=== PATIENT | male | born 1965 | race African-American/Black ===

== ENCOUNTER 2017-10-04 03:41 | Emergency (ER) | payer OTHER ==
[2017-10-04] MEDS: MORPHINE SULFATE 2 MG/ML DISP.SYRIN. IM (05:15)
== END 2017-10-04 06:20 | disposition home or self-care (01) ==
LOC: ER 03:41
DX: M54.5 Low back pain (principal); M79.604 Pain in right leg; M79.605 Pain in left leg; R10.9 Unspecified abdominal pain; G89.29 Other chronic pain; I12.0 Hypertensive chronic kidney disease with stage 5 chronic kidney disease or end stage renal disease; E11.22 Type 2 diabetes mellitus with diabetic chronic kidney disease; N18.6 End stage renal disease; M10.9 Gout, unspecified; N40.0 Benign prostatic hyperplasia without lower urinary tract symptoms; Z90.49 Acquired absence of other specified parts of digestive tract; Z99.2 Dependence on renal dialysis
CPT/HCPCS: 96372; 99283; J2270

== ENCOUNTER 2017-10-27 11:56 | Emergency (ER) | payer OTHER ==
[2017-10-27 12:47] LABS: BACTERIA,URINE 0 /HPF (0-FEW); BILIRUBIN,URINE NEGATIVE (NEG); CLARITY,URINE CLEAR; COLOR,URINE YELLOW; GLUCOSE,URINE NEGATIVE (NEG); NITRITE,URINE NEGATIVE (NEG); PH,URINE 7.5; PROTEIN,URINE 100 mg/dL (NEG-TRACE); RBC,URINE OCC /HPF (0-2); SQUAMOUS EPITHELIAL CELL,UR MANY /LPF; UROBILINOGEN,URINE 0.2 mg/dL (0.2 mg/dL)
[2017-10-27 12:50] LABS: ADD MAN DIFF? NO
[2017-10-27 12:52] LABS: BASO % 1 % (0-3); EOS # 0.4 x10^3/uL (0.0-0.7); EOS % 8 % (0-3); HEMATOCRIT 27.6 % (39.0-53.0); LYMPH # 1.7 x10^3/uL (1.0-4.8); LYMPH % 31 % (24-48); MEAN CORPUSCULAR HEMOGLOBIN 24 pg (25-35); MEAN CORPUSCULAR HGB CONC 33 g/dL (31-37); MEAN CORPUSCULAR VOLUME 75 fL (79-100); MONO # 0.6 x10^3/uL (0.0-1.1); MONO % 11 % (0-9); NEUT # 2.8 x10^3uL (1.8-7.7); NEUT % 50 % (31-73); PLATELET COUNT 72 x10^3/uL (140-400); RED BLOOD COUNT 3.69 x10^6/uL (4.30-5.70); RED CELL DISTRIBUTION WIDTH 20.4 % (11.5-14.5); WHITE BLOOD COUNT 5.5 x10^3/uL (4.0-11.0)
[2017-10-27 13:02] LABS: ANION GAP 4 (6-14); BLOOD UREA NITROGEN 49 mg/dL (8-26); BUN/CREATININE RATIO 5 (6-20); CALCIUM 9.1 mg/dL (8.5-10.1); CARBON DIOXIDE 30 mmol/L (21-32); CHLORIDE 101 mmol/L (98-107); CREATININE 10.1 mg/dL (0.7-1.3); GFR 6.5; GLUCOSE 81 mg/dL (70-99); POTASSIUM 3.8 mmol/L (3.5-5.1); SODIUM 135 mmol/L (136-145)
[2017-10-27] MEDS: ONDANSETRON PF 4 MG/2 ML VIAL. IV (13:04)
[2017-10-27] MEDS: fentaNYL PF VIAL 100 MCG/2 ML VIAL IV (13:05)
[2017-10-27 13:10] LABS: ALBUMIN 3.1 g/dL (3.4-5.0); ALBUMIN/GLOBULIN RATIO 0.8 (1.0-1.7); ALK PHOS 67 U/L (46-116); ALT (SGPT) 20 U/L (16-63); AST (SGOT) 22 U/L (15-37); LIPASE 334 U/L (73-393); TOTAL BILIRUBIN 0.4 mg/dL (0.2-1.0); TOTAL PROTEIN 7.1 g/dL (6.4-8.2)
[2017-10-27 13:45] LABS: BARBITURATES NEG (NEG); BENZODIAZEPINES NEG (NEG); CANNABINOIDS NEG (NEG); COCAINE NEG (NEG); METHADONE NEG (NEG); OPIATES POS (NEG); PHENCYCLIDINE POS (NEG)
[2017-10-27 13:53] LABS: AMPHETAMINE/METHAMPHETAMINE NEG (NEG); ETHANOL, URINE NEG (NEG)
[2017-10-27 14:48] LABS: ANISOCYTOSIS MOD; HYPOCHROMIA SLIGHT; MICROCYTOSIS MOD; PLT ESTIMATE DECREASED (ADEQUATE); POLYCHROMASIA SLIGHT; SCHISTOCYTES OCC
== END 2017-10-27 15:30 | disposition home or self-care (01) ==
LOC: ER 11:56
DX: E11.22 Type 2 diabetes mellitus with diabetic chronic kidney disease (principal); I12.0 Hypertensive chronic kidney disease with stage 5 chronic kidney disease or end stage renal disease; N18.6 End stage renal disease; Z99.2 Dependence on renal dialysis; E11.40 Type 2 diabetes mellitus with diabetic neuropathy, unspecified; Z90.49 Acquired absence of other specified parts of digestive tract
CPT/HCPCS: 36415; 74176; 80053; 80307; 81001; 83690; 85025; 87086; 93005; 96374; 96375; 99285-25; J2405; J3010

== ENCOUNTER 2018-07-25 12:59 | Emergency (ER) | payer OTHER ==
[~2018-07-25] VITALS: Ht 177.8 cm; Wt 112.9 kg
[~2018-07-25 12:59] MED LIST: AMLO5TAB4 PO; BUPR1PAT8 TP; CALC667T4; DIAZ2TAB PO; ESCITALOPRAM OX10 MG PO; METO10SO PO; MIDO5TAB PO; ONDA4TAB7 PO; OXYC1TAB15 PO; PROM118S5 PO; TIMO1DRO2 OU
[2018-07-25] MEDS ORDERED: VANCOMYCIN PER PHARMACY MC ONE (13:30)
[2018-07-25] MEDS ORDERED: MORPHINE SULFATE 4 MG/ML VIAL. IV/SQ PRN (13:30)
[2018-07-25] MEDS ORDERED: PIPERACILLIN/TAZOBACTAM 4.5 GM in IV NORMAL SALINE 100ML 100 ML IV ONE (13:30)
[2018-07-25] MEDS ORDERED: VANCOMYCIN 2 GM in IV NORMAL SALINE 500ML BAG 500 ML IV ONE (14:00)
--- NOTE | 2018-07-25 14:07 | EKG ---
[facility] [address] [place] [address] Test Date: 2018-07-25 Test Time: 13:47:52 Pat Name: BEHZAD NGUYEN Department: Room: Gender: M Slide Developer: : 1965 Requested By: PETRA CRAWFORD Order Number: [id number] Reading MD: Ari Mccollum MD Measurements Intervals [place] Rate: 90 P: 33 [place]: 198 QRS: -18 QRSD: 84 T: -8 QT: 354 QTc: 437 Interpretive Statements SINUS RHYTHM PRIOR SEPTAL INFARCT NON-SPECIFIC ST/T CHANGES Electronically Signed On 07-25-2018 15:12:44 CDT by Ari Mccollum MD
[2018-07-25 14:20] LABS: PROTHROMBIN TIME PATIENT 14.1 SEC (11.7-14.0)
[2018-07-25 14:23] LABS: BASO % 1 % (0-3); EOS # 0.2 x10^3/uL (0.0-0.7); EOS % 3 % (0-3); HEMATOCRIT 29.4 % (39.0-53.0); HEMOGLOBIN 9.6 g/dL (13.0-17.5); LYMPH # 1.5 x10^3/uL (1.0-4.8); LYMPH % 18 % (24-48); MEAN CORPUSCULAR HEMOGLOBIN 24 pg (25-35); MEAN CORPUSCULAR HGB CONC 33 g/dL (31-37); MEAN CORPUSCULAR VOLUME 74 fL (79-100); MONO # 0.4 x10^3/uL (0.0-1.1); MONO % 5 % (0-9); NEUT # 6.2 x10^3uL (1.8-7.7); NEUT % 75 % (31-73); PLATELET COUNT 62 x10^3/uL (140-400); RED BLOOD COUNT 3.99 x10^6/uL (4.30-5.70); RED CELL DISTRIBUTION WIDTH 19.4 % (11.5-14.5); WHITE BLOOD COUNT 8.3 x10^3/uL (4.0-11.0)
[2018-07-25 14:25] LABS: CALCIUM 8.8 mg/dL (8.5-10.1); CREATININE 13.1 mg/dL (0.7-1.3); GFR 4.8; POTASSIUM 4.6 mmol/L (3.5-5.1)
[2018-07-25 14:31] LABS: ALBUMIN 3.6 g/dL (3.4-5.0); ALBUMIN/GLOBULIN RATIO 0.8 (1.0-1.7); MAGNESIUM 2.3 mg/dL (1.8-2.4); TOTAL BILIRUBIN 0.4 mg/dL (0.2-1.0)
--- NOTE | 2018-07-25 14:47 | RAD ---
CT ABDOMEN PELVIS WO CONTRAST Indication: ABD PAIN Exposure: One or more of the following individualized dose reduction techniques were utilized for this examination: 1. Automated exposure control 2. Adjustment of the mA and/or kV according to patient size 3. Use of iterative reconstruction technique. Comparison: None are available. Technique: No intravenous contrast given. No oral contrast per request. Findings: Evaluation of solid viscera, bowel and vasculature is compromised by the noncontrast technique. Comparison with October 27, 2017. Lung bases are clear. Liver is unremarkable. Spleen is mildly enlarged measuring 13.5 cm, similar prior study. Pancreas is unremarkable. No evidence of adrenal mass. Kidneys appear small bilaterally . Several small hypodense lesions of both kidneys, too small to characterize, may represent cysts. No hydronephrosis. Gallbladder is surgically absent. Aorta is nonaneurysmal. Mild atherosclerotic calcification. No significant lymph node enlargement. No evidence of bowel obstruction. No evidence of acute colitis. No evidence of acute appendicitis. The prostate gland is enlarged and irregular, similar to the previous study. This indents the urinary bladder. There is distention of urinary bladder which measures about 16 cm cephalocaudal. No evidence of significant ascites. No evidence of pneumoperitoneum. Several small subcutaneous nodules in the anterior abdomen were not seen previously, largest is on the left and measures 18 mm. No significant inflammatory stranding in the regions. Degenerative spondylosis. There is endplate irregularity of the lower lumbar and sacral levels, similar to prior study, likely degenerative in nature. Mild degenerative changes at the skeletal pelvis. IMPRESSION: 1. Prostate is enlarged and irregular, appears similar to prior study. Urinary bladder distention could indicate outlet obstruction. As stated previously, prostate or urinary bladder mass is difficult to exclude. 2. Mild splenic enlargement is unchanged. 3. Development of multiple small nonspecific subcutaneous nodules in the anterior abdominal wall fat. Significance uncertain. Largest measures 18 mm. 4. Small renal hypodensities are too small to characterize, may represent cysts. Lesions on the right are roughly similar as previous exam. Electronically signed by: Jose Sloan MD (07/25/2018 2:44 PM) [facility]
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
[2018-07-25 18:11] VITALS: BP 117/59
== END 2018-07-25 18:16 | disposition home or self-care (01) ==
LOC: ER 12:59
DX: I12.0 Hypertensive chronic kidney disease with stage 5 chronic kidney disease or end stage renal disease (principal); E11.22 Type 2 diabetes mellitus with diabetic chronic kidney disease; N18.6 End stage renal disease; R10.84 Generalized abdominal pain; R11.2 Nausea with vomiting, unspecified; M19.90 Unspecified osteoarthritis, unspecified site; G89.29 Other chronic pain; E11.40 Type 2 diabetes mellitus with diabetic neuropathy, unspecified; Z99.2 Dependence on renal dialysis; Z90.49 Acquired absence of other specified parts of digestive tract; Z87.891 Personal history of nicotine dependence
CPT/HCPCS: 36415; 74176; 80053; 82553; 83605; 83690; 83735; 83880; 84145; 84484; 85025; 85610; 85730; 87040; 93005; 96365; 96366; 96367; 96375; 99284; J2270; J2543; J3370; J7040

== ENCOUNTER 2018-09-01 06:51 | Inpatient (IN) | payer OTHER ==
[~2018-09-01] VITALS: Ht 177.8 cm; Wt 114.9 kg
[2018-09-01] MEDS ORDERED: ACETAMINOPHEN 500 MG TABLET PO ONE (07:15)
[2018-09-01] MEDS ORDERED: IV NORMAL SALINE 1000ML BAG 1,000 ML IV ONE (07:15)
[2018-09-01 07:29] LABS: BILIRUBIN,URINE NEGATIVE (NEG); CLARITY,URINE TURBID; NITRITE,URINE NEGATIVE (NEG); PH,URINE 7.5; PROTEIN,URINE 100 mg/dL (NEG-TRACE); UROBILINOGEN,URINE 0.2 mg/dL (0.2 mg/dL)
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
[2018-09-01] MEDS ORDERED: cefTRIAXone IV Push 1 GM VIAL. IVP ONE (07:30)
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
[2018-09-01 07:42] LABS: BASO # 0.1 x10^3/uL (0.0-0.2); BASO % 1 % (0-3); EOS # 0.3 x10^3/uL (0.0-0.7); EOS % 3 % (0-3); HEMATOCRIT 24.2 % (39.0-53.0); HEMOGLOBIN 7.7 g/dL (13.0-17.5); LYMPH # 0.8 x10^3/uL (1.0-4.8); LYMPH % 11 % (24-48); MEAN CORPUSCULAR HEMOGLOBIN 24 pg (25-35); MEAN CORPUSCULAR HGB CONC 32 g/dL (31-37); MEAN CORPUSCULAR VOLUME 74 fL (79-100); MONO # 0.9 x10^3/uL (0.0-1.1); MONO % 12 % (0-9); NEUT # 5.8 x10^3uL (1.8-7.7); NEUT % 74 % (31-73); PLATELET COUNT 85 x10^3/uL (140-400); RED BLOOD COUNT 3.29 x10^6/uL (4.30-5.70); RED CELL DISTRIBUTION WIDTH 18.4 % (11.5-14.5); WHITE BLOOD COUNT 7.8 x10^3/uL (4.0-11.0)
[2018-09-01 07:45] LABS: BACTERIA,URINE 0 /HPF (0-FEW); COLOR,URINE STRAW; RBC,URINE 0 /HPF (0-2); SQUAMOUS EPITHELIAL CELL,UR FEW /LPF; WBC,URINE TNTC /HPF (0-4)
[2018-09-01 08:02] LABS: ALBUMIN 2.7 g/dL (3.4-5.0); ALBUMIN/GLOBULIN RATIO 0.7 (1.0-1.7); CALCIUM 8.6 mg/dL (8.5-10.1); CREATININE 13.2 mg/dL (0.7-1.3); GFR 4.8; TOTAL BILIRUBIN 0.4 mg/dL (0.2-1.0); TOTAL PROTEIN 6.8 g/dL (6.4-8.2)
[2018-09-01 08:06] LABS: PROTHROMBIN TIME PATIENT 13.4 SEC (11.7-14.0)
--- NOTE | 2018-09-01 10:49 | RAD ---
CT ABDOMEN PELVIS WO CONTRAST Indication: Abdominal pain, fever, painful urination. Exposure: One or more of the following individualized dose reduction techniques were utilized for this examination: 1. Automated exposure control 2. Adjustment of the mA and/or kV according to patient size 3. Use of iterative reconstruction technique. Comparison: July 25, 2018 Technique: No intravenous contrast given. No oral contrast per request. Findings: Evaluation of solid viscera, bowel and vasculature is compromised by the noncontrast technique. Lung bases are clear. Liver is not enlarged. Spleen remains mildly enlarged. No peripancreatic fluid or inflammatory change. No adrenal mass. Kidneys are small in size with renal cortical atrophy. Mild hydronephrosis and ureteric dilatation, has progressed since the prior study. This is greater on the left. No evidence of obstructive calculus. Several small renal lesions are identified, too small to characterize but may represent cysts. Likely not significant changed. Gallbladder surgically absent. Aorta is nonaneurysmal. No significant lymph node enlargement. No significant small bowel distention. No evidence of acute colitis. Mild stool throughout colon. The appendix is not clearly seen. No evidence of ascites or pneumoperitoneum. Large and irregular prostate gland is again identified. Diffuse urinary bladder wall thickening, appears greater than the prior study although the bladder is also less distended. This could be due to cystitis or related to the large irregular prostate gland. Mass of the prostate or urinary bladder is again not excludable. Degenerative changes of the spine are again identified. No new destructive bone lesion. Small subcutaneous nodules along the anterior abdomen have decreased in size. IMPRESSION: 1. Large irregular prostate is again identified indistinguishable from the inferior urinary bladder. Increased urinary bladder wall thickening. Malignancy of the urinary bladder and/or prostate gland is possible. 2. Development of hydronephroureter bilaterally, could be due to ascending infection or outlet obstruction. No evidence of obstructive calcified stone. Electronically signed by: Jose Sloan MD (09/01/2018 10:46 AM) [id number]
[2018-09-01] MEDS ORDERED: ONDANSETRON PF 4 MG/2 ML VIAL. IV PRN (11:30)
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
[2018-09-01 12:07] LABS: PLT ESTIMATE DECREASED (ADEQUATE); TARGET CELLS PRESENT
[2018-09-01] MEDS ORDERED: fentaNYL PF VIAL 100 MCG/2 ML VIAL IV ONE (13:45)
--- NOTE | 2018-09-01 13:46 | EKG ---
[facility] [address] [place] [address] Test Date: 2018-09-01 Test Time: 11:13:35 Pat Name: BEHZAD NGUYEN Department: Room: [facility] Gender: Rn Case Mgr: : 1965 Requested By: HUMBERTO MORENO Order Number: [id number] Reading MD: Srinath Chou Measurements Intervals [place] Rate: P: MT: QRS: QRSD: T: QT: QTc: Interpretive Statements SINUS RHYTHM OLD ANTEROSEPTAL INFARCT Electronically Signed On 09-29-2018 13:11:50 CDT by Srinath Chou
[2018-09-01] MEDS ORDERED: diazePAM 2 MG TABLET PO PRN (15:15)
[2018-09-01] MEDS ORDERED: ONDANSETRON ODT 4 MG TAB.RAPDIS. PO PRN (15:30)
[2018-09-01 15:57] VITALS: BP 119/54
[2018-09-01] MEDS ORDERED: cefTRIAXone IV Push 1 GM VIAL. IVP SCH (16:00)
[2018-09-01] MEDS ORDERED: METOCLOPRAMIDE ORAL SOLN 10 MG/10 ML SOLUTION. PO SCH (16:30)
[2018-09-01] MEDS ORDERED: CALCIUM ACETATE 667 MG CAPSULE PO SCH (17:00)
[2018-09-01] MEDS ORDERED: MIDODRINE 5 MG TABLET PO SCH (18:00)
[2018-09-01] MEDS ORDERED: SENNOSIDES/DOCUSATE 8.6/50MG TABLET. PO PRN (18:15)
[2018-09-01] MEDS ORDERED: SILD100T PO (18:17)
[2018-09-01] MEDS ORDERED: SEVE800T9 PO (18:17)
[2018-09-01] MEDS ORDERED: HYDR-2761 PO (18:17)
[2018-09-01] MEDS ORDERED: TRAM50TA PO (18:17)
[2018-09-01] MEDS ORDERED: DICY10CA3 PO (18:17)
[2018-09-01] MEDS ORDERED: POLY2500 PO (18:17)
[2018-09-01] MEDS ORDERED: CINA30TA2 PO (18:17)
[2018-09-01] MEDS ORDERED: TAMS0.4C97 PO (18:17)
[2018-09-01] MEDS ORDERED: CYCL5TAB PO (18:17)
[2018-09-01] MEDS ORDERED: SENN1TAB99 PO (18:17)
[2018-09-01 19:00] VITALS: BP 104/55
[2018-09-01] MEDS ORDERED: PROMETHAZINE HCL PO SCH (21:00)
[2018-09-01] MEDS ORDERED: CODEINE PO SCH (21:00)
[2018-09-01] MEDS: HEPARIN for SUB-Q USE 5,000 UNIT/ML VIAL. SQ SCH (21:00)
[2018-09-01] MEDS: TAMSULOSIN 0.4 MG CAP.ER.24H. PO SCH (21:24)
[2018-09-01] MEDS: CINACALCET HCL 30 MG TABLET PO SCH (21:24)
[2018-09-01] MEDS: traMADol 50 MG TABLET PO PRN (22:50)
[2018-09-01 23:00] VITALS: BP 99/57
[2018-09-02] MEDS: DICYCLOMINE HCL 10 MG CAPSULE PO PRN ×3 (01:45→14:54)
[2018-09-02] MEDS: traMADol 50 MG TABLET PO PRN (05:49)
[2018-09-02 07:00] VITALS: BP 121/46
[2018-09-02] MEDS: SEVELAMER CARBONATE 800 MG TABLET. PO SCH ×3 (08:00→16:53)
[2018-09-02] MEDS ORDERED: cefTRIAXone IV Push 1 GM VIAL. IVP SCH (09:00)
[2018-09-02] MEDS: HEPARIN for SUB-Q USE 5,000 UNIT/ML VIAL. SQ SCH ×2 (09:00→20:31)
[2018-09-02] MEDS ORDERED: POLYETHYLENE GLYCOL 3350 17 GM PACKET. PO PRN (09:00)
[2018-09-02] MEDS ORDERED: CITALOPRAM 20 MG TABLET. PO SCH (09:00)
[2018-09-02] MEDS ORDERED: TIMOLOL 0.5% OPHTH SOLUTION 5ML BOTTLE. OU SCH (09:00)
--- NOTE | 2018-09-02 09:19 | PDOC2 ---
DERREK MEADE APRN 09/02/18 0919: UROLOGY CONSULT Date of Consult Date of Consult DATE: 09/02/18 TIME: 09:12 Identification/Chief Complaint Chief Complaint Hydronephrosis. Source Source: Patient History of Present Illness Reason for Visit: This 53 year old male presented through the ER with complaints of dysuria, and generalized abd pain. He is on dialysis three times per week for kidney failure, and told the RESIDENT ASSISTANT that he makes very little urine, usually only going once a day. However, later in the conversation, he admitted that he is getting up at night and has a sensation of incomplete emptying. He is not sure if he has had kidney stones or gallbladder stones. His pain is improved since admission, and about 4- 5/10 across his bilateral lower abdomen. He remembers being seen by [facility] during a previous admission in April 2017 and that he was told to get a cystoscopy at that time, however he did not go. When asked why, he answered "I forgot." Past Medical History Cardiovascular: HTN GI: Constipation Heme/Onc: Anemia NOS Renal/: Chronic renal failure Endocrine: Diabetes, Hyperparathyroidism Past Surgical History Past Surgical History: Other Family History Family History: Alcohol Abuse, Drug Abuse, Hypertension Social History No ALCOHOL: none Drugs: None, Other Current Medications Current Medications Current Medications Calcium Acetate (Phoslo) 667 mg TIDWMEALS PO ; Start 09/01/18 at 17:00; Status Cancel Ceftriaxone Sodium (Rocephin) 1 gm Q24H IVP ; Start 09/02/18 at 09:00 Ceftriaxone Sodium (Rocephin) 1 gm Q24H IVP ; Start 09/01/18 at 16:00; Stop 09/01/18 at 18:32; Status DC Cinacalcet (Sensipar) 30 mg DAILYWSUP PO Last administered on 09/01/18at 21:24; Start 09/01/18 at 19:00 Citalopram Hydrobromide (CeleXA) 20 mg DAILY PO ; Start 09/02/18 at 09:00; Status Cancel Cyclobenzaprine HCl (Flexeril) 5 mg PRN Q8HRS PRN PO MUSCLE SPASMS; Start 09/01/18 at 18:30 Diazepam (Valium) 2 mg PRN DAILY PRN PO ANXIETY / AGITATION; Start 09/01/18 at 15:15; Status Cancel Dicyclomine HCl (Bentyl) 10 mg QID PRN PO ABD PAIN/CRAMPING Last administered on 09/02/18at 01:45; Start 09/01/18 at 18:15 Fentanyl Citrate (Fentanyl 2ml Vial) 25 mcg 1X ONCE IV Last administered on 09/01/18at 13:43; Start 09/01/18 at 13:45; Stop 09/01/18 at 13:46; Status DC Heparin Sodium (Porcine) (Heparin Sodium) 5,000 unit BID SQ ; Start 09/01/18 at 21:00 Metoclopramide HCl (Reglan Oral Solution) 2.5 mg TIDACHC PO ; Start 09/01/18 at 16:30; Status Cancel Midodrine (Proamatine) 5 mg BID@0900,1700 PO ; Start 09/01/18 at 18:00; Stop 09/01/18 at 18:03; Status DC Non-Formulary Medication (Promethazine Hcl/Codeine (Promethazine-Codeine Syrup)) 10 ml QHS PO ; Start 09/01/18 at 21:00; Status UNV Ondansetron HCl (Zofran Odt) 4 mg PRN Q8HRS PRN PO NAUSEA/VOMITING; Start 09/01/18 at 15:30 Ondansetron HCl (Zofran) 4 mg PRN Q8HRS PRN IV NAUSEA/VOMITING; Start 09/01/18 at 11:30; Stop 09/02/18 at 11:29 Polyethylene Glycol (miraLAX PACKET) 17 gm PRN DAILY PRN PO CONSTIPATION, 1ST CHOICE; Start 09/02/18 at 09:00 Senna/Docusate Sodium (Senna Plus) 1 tab PRN DAILY PRN PO CONSTIPATION, 2ND CHOICE; Start 09/01/18 at 18:15 Sevelamer Carbonate (Renvela) 800 mg TIDWMEALS PO ; Start 09/02/18 at 08:00 Tamsulosin HCl (Flomax) 0.4 mg DAILYWSUP PO Last administered on 09/01/18at 21 :24; Start 09/01/18 at 19:00 Timolol Maleate (Timoptic 0.5% [facility]) 1 drop DAILY OU ; Start 09/02/18 at 09:00; Status Cancel Tramadol HCl (Ultram) 50 mg PRN Q6HRS PRN PO MODERATE PAIN Last administered on 09/02/18at 05:49; Start 09/01/18 at 22:30 Allergies Allergies: Coded Allergies: No Known Drug Allergies (Unverified , 08/16/14) ROS Review Of Systems: CONSTITUTIONAL: No fever or chills EYES: No recent changes SKIN: No rash or itching CARDIOVASCULAR: No chest pain, syncope, palpitations, or edema RESPIRATORY: No SOB or cough GASTROINTESTINAL: No nausea, vomiting or abdominal pain NEUROLOGICAL: No headaches or weakness ENDOCRINE: No cold or heat intolerance GENITOURINARY: No urgency or frequency of urination MUSCULOSKELETAL: No back pain or joint pain LYMPHATICS: No enlarged lymph nodes PSYCHIATRIC: No anxiety or depression Physical Exam Physical Exam: General: Pleasant, no acute distress, well groomed Eyes: conjunctiva anicteric, eyes full range of motion ENT: moist oral mucosa, normal dentition Neck: Trachea midline, no masses Respiratory: unlabored breathing, not using accessory muscles, Abdomen: Generalized tenderness throughout, soft, obese nondistended, no he patosplenomegaly, no masses Skin: no rashes or skin lesions on visualized skin Psych: normal mood, affect. Alert and oriented x 3. Vitals VITALS Vital Signs Date Time Temp Pulse Resp B/P (MAP) Pulse Ox O2 Delivery O2 Flow Rate FiO2 09/02/18 07:00 97.7 59 20 121/46 (71) 99 Room Air 97.7 Labs Labs Laboratory Tests Test 09/01/18 07:00 09/01/18 07:25 09/01/18 11:00 09/01/18 16:41 Urine Collection Type Unknown Urine Color Straw Urine Clarity Turbid Urine pH 7.5 Urine Specific [place] 1.015 Urine Protein 100 mg/dL (NEG-TRACE) Urine Glucose (UA) Negative mg/dL (NEG) Urine Ketones (Stick) Negative mg/dL (NEG) Urine Blood Large (NEG) Urine Nitrite Negative (NEG) Urine Bilirubin Negative (NEG) Urine Urobilinogen Dipstick 0.2 mg/dL (0.2 mg/dL) Urine Leukocyte Esterase Moderate (NEG) Urine RBC 0 /HPF (0-2) Urine WBC Tntc /HPF (0-4) Urine Squamous Epithelial Cells Few /LPF Urine Bacteria 0 /HPF (0-FEW) White Blood Count 7.8 x10^3/uL (4.0-11.0) Red Blood Count 3.29 x10^6/uL (4.30-5.70) Hemoglobin 7.7 g/dL (13.0-17.5) Hematocrit 24.2 % (39.0-53.0) Mean Corpuscular Volume 74 fL (79-100) Mean Corpuscular Hemoglobin 24 pg (25-35) Mean Corpuscular Hemoglobin Concent 32 g/dL (31-37) Red Cell Distribution Width 18.4 % (11.5-14.5) Platelet Count 85 x10^3/uL (140-400) Neutrophils (%) (Auto) 74 % (31-73) Lymphocytes (%) (Auto) 11 % (24-48) Monocytes (%) (Auto) 12 % (0-9) Eosinophils (%) (Auto) 3 % (0-3) Basophils (%) (Auto) 1 % (0-3) Neutrophils # (Auto) 5.8 x10^3uL (1.8-7.7) Lymphocytes # (Auto) 0.8 x10^3/uL (1.0-4.8) Monocytes # (Auto) 0.9 x10^3/uL (0.0-1.1) Eosinophils # (Auto) 0.3 x10^3/uL (0.0-0.7) Basophils # (Auto) 0.1 x10^3/uL (0.0-0.2) Platelet Estimate Decreased (ADEQUATE) Large Platelets Present Target Cells Present Prothrombin Time 13.4 SEC (11.7-14.0) Prothromb Time International Ratio 1.1 (0.8-1.1) Activated Partial Thromboplast Time 31 SEC (24-38) Sodium Level 133 mmol/L (136-145) Potassium Level 4.0 mmol/L (3.5-5.1) Chloride Level 93 mmol/L (98-107) Carbon Dioxide Level 33 mmol/L (21-32) Anion Gap 7 (6-14) Blood Urea Nitrogen 62 mg/dL (8-26) Creatinine 13.2 mg/dL (0.7-1.3) Estimated GFR (Cockcroft-Gault) 4.8 BUN/Creatinine Ratio 5 (6-20) Glucose Level 100 mg/dL (70-99) Lactic Acid Level 1.1 mmol/L (0.4-2.0) 0.7 mmol/L (0.4-2.0) Calcium Level 8.6 mg/dL (8.5-10.1) Total Bilirubin 0.4 mg/dL (0.2-1.0) Aspartate Amino Transf (AST/SGOT) 22 U/L (15-37) Alanine Aminotransferase (ALT/SGPT) 18 U/L (16-63) Alkaline Phosphatase 70 U/L (46-116) Creatine Kinase 141 U/L (39-308) Creatine Kinase MB (Mass) 0.7 ng/mL (0.0-3.6) Creatine Kinase MB Relative Index 0.5 % (0-4) Troponin I Quantitative 0.017 ng/mL (0.000-0.055) Total Protein 6.8 g/dL (6.4-8.2) Albumin 2.7 g/dL (3.4-5.0) Albumin/Globulin Ratio 0.7 (1.0-1.7) Lipase 334 U/L (73-393) Glucose (Fingerstick) 107 mg/dL (70-99) Test 09/01/18 21:17 09/02/18 07:00 Glucose (Fingerstick) 106 mg/dL (70-99) 79 mg/dL (70-99) Laboratory Tests Test 09/01/18 11:00 09/01/18 16:41 09/01/18 21:17 09/02/18 07:00 Lactic Acid Level 0.7 mmol/L (0.4-2.0) Glucose (Fingerstick) 107 mg/dL (70-99) 106 mg/dL (70-99) 79 mg/dL (70-99) Images Images IMPRESSION: 1. Large irregular prostate is again identified indistinguishable from the inferior urinary bladder. Increased urinary bladder wall thickening. Malignancy of the urinary bladder and/or prostate gland is possible. 2. Development of hydronephroureter bilaterally, could be due to ascending infection or outlet obstruction. No evidence of obstructive calcified stone. Assessment/Plan Assessment/Plan Nursing to bladder scan patient for PVR and call results to [phone] Pain control per primary care Will order social work consult so patient can get a follow up appointment at [facility] for cystoscopy. Bladder scan this am (PVR ) is 48= no retention. UA shows some signs of infection, await Urine Culture results. Dr Saavedra aware of patient. VIRGIL SAAVEDRA MD 09/02/18 2905: UROLOGY CONSULT Assessment/Plan Assessment/Plan Dysuria/pyuria, no bacteruria. Fu ucx. May try Pyridium prn. Prostatemegaily. Will get PSA. Bladder mass, looks prostate in origin.Cysto as OP Bladder wall thickening with bl ureter dilation, looks chronic, Prob from long standing obstruction. cysto as above. Empties well. DERREK MEADE APRN September 02, 2018 09:19 VIRGIL SAAVEDRA MD September 02, 2018 14:54
[2018-09-02] MEDS ORDERED: ONDANSETRON PF 4 MG/2 ML VIAL. IV PRN (09:45)
[2018-09-02] MEDS: HYDROcodone/APAP 5/325MG 1 TAB TABLET PO PRN ×2 (10:22→19:22)
[2018-09-02 11:00] VITALS: BP 98/46
[2018-09-02 11:10] LABS: BASO # 0.1 x10^3/uL (0.0-0.2); BASO % 1 % (0-3); EOS # 0.3 x10^3/uL (0.0-0.7); EOS % 5 % (0-3); HEMATOCRIT 23.7 % (39.0-53.0); HEMOGLOBIN 7.5 g/dL (13.0-17.5); LYMPH # 1.3 x10^3/uL (1.0-4.8); LYMPH % 21 % (24-48); MEAN CORPUSCULAR HEMOGLOBIN 23 pg (25-35); MEAN CORPUSCULAR HGB CONC 32 g/dL (31-37); MEAN CORPUSCULAR VOLUME 73 fL (79-100); MONO # 0.9 x10^3/uL (0.0-1.1); MONO % 15 % (0-9); NEUT # 3.5 x10^3uL (1.8-7.7); NEUT % 58 % (31-73); PLATELET COUNT 108 x10^3/uL (140-400); RED BLOOD COUNT 3.26 x10^6/uL (4.30-5.70); RED CELL DISTRIBUTION WIDTH 18.6 % (11.5-14.5); WHITE BLOOD COUNT 5.9 x10^3/uL (4.0-11.0)
--- NOTE | 2018-09-02 11:22 | PDOC ---
Provider Note Provider Note Pt seen IMP: Fever UTI prostate enlargement ESRD Thrombocytopenia REC: DC Ceftriaxone Zosyn f/u f/u [id number] thank you TOBIN RAY MD September 02, 2018 11:22
[2018-09-02 11:43] LABS: ALBUMIN 2.3 g/dL (3.4-5.0); CALCIUM 8.1 mg/dL (8.5-10.1); CREATININE 14.5 mg/dL (0.7-1.3); GFR 4.3; PHOSPHORUS 5.1 mg/dL (2.6-4.7); POTASSIUM 4.6 mmol/L (3.5-5.1)
--- NOTE | 2018-09-02 12:45 | PDOC ---
PROGRESS NOTES Chief Complaint Chief Complaint Fever UTI prostate enlargement Thrombocytopenia ESRD on dialysis TTH S - missed session Anemia of ESRD History of Present Illness History of Present Illness He follows with urologist at Urology note reviewed PVR, otherwise continue current current treatment Appreciate ID Fever UTI on IV antibiotics Follow cultures Plan for dialysis tomorrow-he did miss session Creatinine 13.2 with normal K and bicarbonate Hemoglobin 7.7, history of needing blood transfusion in the distant past Still some lower abdominal pain/discomfort Plan: I will adjust pain medicines for better pain control Dialysis tomorrow Urine culture, follow ID recs Monitor that anemia-transfuseif hgb < 7 Trial of Lidoderm patch to the back His pain meds apparently at home is every 6 hours not every 8. Vitals Vitals Vital Signs Date Time Temp Pulse Resp B/P (MAP) Pulse Ox O2 Delivery O2 Flow Rate FiO2 09/02/18 11:22 Room Air 09/02/18 11:00 98.1 67 20 98/46 (63) 98 98.1 Physical Exam General: Alert, Oriented X3, Cooperative, No acute distress Heart: Regular rate, Normal S1, Normal S2, No murmurs Lungs: Clear Abdomen: Normal bowel sounds, Soft, No tenderness Extremities: No clubbing, No cyanosis, No edema Skin: No rashes, No breakdown, No significant lesion Labs LABS Laboratory Tests Test 09/01/18 16:41 09/01/18 21:17 09/02/18 07:00 09/02/18 10:30 Glucose (Fingerstick) 107 mg/dL (70-99) 106 mg/dL (70-99) 79 mg/dL (70-99) White Blood Count 5.9 x10^3/uL (4.0-11.0) Red Blood Count 3.26 x10^6/uL (4.30-5.70) Hemoglobin 7.5 g/dL (13.0-17.5) Hematocrit 23.7 % (39.0-53.0) Mean Corpuscular Volume 73 fL (79-100) Mean Corpuscular Hemoglobin 23 pg (25-35) Mean Corpuscular Hemoglobin Concent 32 g/dL (31-37) Red Cell Distribution Width 18.6 % (11.5-14.5) Platelet Count 108 x10^3/uL (140-400) Neutrophils (%) (Auto) 58 % (31-73) Lymphocytes (%) (Auto) 21 % (24-48) Monocytes (%) (Auto) 15 % (0-9) Eosinophils (%) (Auto) 5 % (0-3) Basophils (%) (Auto) 1 % (0-3) Neutrophils # (Auto) 3.5 x10^3uL (1.8-7.7) Lymphocytes # (Auto) 1.3 x10^3/uL (1.0-4.8) Monocytes # (Auto) 0.9 x10^3/uL (0.0-1.1) Eosinophils # (Auto) 0.3 x10^3/uL (0.0-0.7) Basophils # (Auto) 0.1 x10^3/uL (0.0-0.2) Sodium Level 134 mmol/L (136-145) Potassium Level 4.6 mmol/L (3.5-5.1) Chloride Level 95 mmol/L (98-107) Carbon Dioxide Level 33 mmol/L (21-32) Anion Gap 6 (6-14) Blood Urea Nitrogen 74 mg/dL (8-26) Creatinine 14.5 mg/dL (0.7-1.3) Estimated GFR (Cockcroft-Gault) 4.3 Glucose Level 123 mg/dL (70-99) Calcium Level 8.1 mg/dL (8.5-10.1) Phosphorus Level 5.1 mg/dL (2.6-4.7) Albumin 2.3 g/dL (3.4-5.0) Test 09/02/18 10:40 Glucose (Fingerstick) 138 mg/dL (70-99) Review of Systems Review of Systems lower abdominal discomfort, otherwise the rest of ROS 14 point negative Assessment and Plan Assessmemt and Plan Problems Medical Problems: (1) Abdominal pain Status: Acute (2) ESRD (end stage renal disease) Status: Acute (3) UTI (urinary tract infection) Status: Acute Comment Review of Relevant I have reviewed the following items katherine (where applicable) has been applied. Labs Laboratory Tests Test 09/01/18 07:00 09/01/18 07:25 09/01/18 11:00 09/01/18 16:41 Urine Collection Type Unknown Urine Color Straw Urine Clarity Turbid Urine pH 7.5 Urine Specific [place] 1.015 Urine Protein 100 mg/dL (NEG-TRACE) Urine Glucose (UA) Negative mg/dL (NEG) Urine Ketones (Stick) Negative mg/dL (NEG) Urine Blood Large (NEG) Urine Nitrite Negative (NEG) Urine Bilirubin Negative (NEG) Urine Urobilinogen Dipstick 0.2 mg/dL (0.2 mg/dL) Urine Leukocyte Esterase Moderate (NEG) Urine RBC 0 /HPF (0-2) Urine WBC Tntc /HPF (0-4) Urine Squamous Epithelial Cells Few /LPF Urine Bacteria 0 /HPF (0-FEW) White Blood Count 7.8 x10^3/uL (4.0-11.0) Red Blood Count 3.29 x10^6/uL (4.30-5.70) Hemoglobin 7.7 g/dL (13.0-17.5) Hematocrit 24.2 % (39.0-53.0) Mean Corpuscular Volume 74 fL (79-100) Mean Corpuscular Hemoglobin 24 pg (25-35) Mean Corpuscular Hemoglobin Concent 32 g/dL (31-37) Red Cell Distribution Width 18.4 % (11.5-14.5) Platelet Count 85 x10^3/uL (140-400) Neutrophils (%) (Auto) 74 % (31-73) Lymphocytes (%) (Auto) 11 % (24-48) Monocytes (%) (Auto) 12 % (0-9) Eosinophils (%) (Auto) 3 % (0-3) Basophils (%) (Auto) 1 % (0-3) Neutrophils # (Auto) 5.8 x10^3uL (1.8-7.7) Lymphocytes # (Auto) 0.8 x10^3/uL (1.0-4.8) Monocytes # (Auto) 0.9 x10^3/uL (0.0-1.1) Eosinophils # (Auto) 0.3 x10^3/uL (0.0-0.7) Basophils # (Auto) 0.1 x10^3/uL (0.0-0.2) Platelet Estimate Decreased (ADEQUATE) Large Platelets Present Target Cells Present Prothrombin Time 13.4 SEC (11.7-14.0) Prothromb Time International Ratio 1.1 (0.8-1.1) Activated Partial Thromboplast Time 31 SEC (24-38) Sodium Level 133 mmol/L (136-145) Potassium Level 4.0 mmol/L (3.5-5.1) Chloride Level 93 mmol/L (98-107) Carbon Dioxide Level 33 mmol/L (21-32) Anion Gap 7 (6-14) Blood Urea Nitrogen 62 mg/dL (8-26) Creatinine 13.2 mg/dL (0.7-1.3) Estimated GFR (Cockcroft-Gault) 4.8 BUN/Creatinine Ratio 5 (6-20) Glucose Level 100 mg/dL (70-99) Lactic Acid Level 1.1 mmol/L (0.4-2.0) 0.7 mmol/L (0.4-2.0) Calcium Level 8.6 mg/dL (8.5-10.1) Total Bilirubin 0.4 mg/dL (0.2-1.0) Aspartate Amino Transf (AST/SGOT) 22 U/L (15-37) Alanine Aminotransferase (ALT/SGPT) 18 U/L (16-63) Alkaline Phosphatase 70 U/L (46-116) Creatine Kinase 141 U/L (39-308) Creatine Kinase MB (Mass) 0.7 ng/mL (0.0-3.6) Creatine Kinase MB Relative Index 0.5 % (0-4) Troponin I Quantitative 0.017 ng/mL (0.000-0.055) Total Protein 6.8 g/dL (6.4-8.2) Albumin 2.7 g/dL (3.4-5.0) Albumin/Globulin Ratio 0.7 (1.0-1.7) Lipase 334 U/L (73-393) Glucose (Fingerstick) 107 mg/dL (70-99) Test 09/01/18 21:17 09/02/18 07:00 09/02/18 10:30 09/02/18 10:40 Glucose (Fingerstick) 106 mg/dL (70-99) 79 mg/dL (70-99) 138 mg/dL (70-99) White Blood Count 5.9 x10^3/uL (4.0-11.0) Red Blood Count 3.26 x10^6/uL (4.30-5.70) Hemoglobin 7.5 g/dL (13.0-17.5) Hematocrit 23.7 % (39.0-53.0) Mean Corpuscular Volume 73 fL (79-100) Mean Corpuscular Hemoglobin 23 pg (25-35) Mean Corpuscular Hemoglobin Concent 32 g/dL (31-37) Red Cell Distribution Width 18.6 % (11.5-14.5) Platelet Count 108 x10^3/uL (140-400) Neutrophils (%) (Auto) 58 % (31-73) Lymphocytes (%) (Auto) 21 % (24-48) Monocytes (%) (Auto) 15 % (0-9) Eosinophils (%) (Auto) 5 % (0-3) Basophils (%) (Auto) 1 % (0-3) Neutrophils # (Auto) 3.5 x10^3uL (1.8-7.7) Lymphocytes # (Auto) 1.3 x10^3/uL (1.0-4.8) Monocytes # (Auto) 0.9 x10^3/uL (0.0-1.1) Eosinophils # (Auto) 0.3 x10^3/uL (0.0-0.7) Basophils # (Auto) 0.1 x10^3/uL (0.0-0.2) Sodium Level 134 mmol/L (136-145) Potassium Level 4.6 mmol/L (3.5-5.1) Chloride Level 95 mmol/L (98-107) Carbon Dioxide Level 33 mmol/L (21-32) Anion Gap 6 (6-14) Blood Urea Nitrogen 74 mg/dL (8-26) Creatinine 14.5 mg/dL (0.7-1.3) Estimated GFR (Cockcroft-Gault) 4.3 Glucose Level 123 mg/dL (70-99) Calcium Level 8.1 mg/dL (8.5-10.1) Phosphorus Level 5.1 mg/dL (2.6-4.7) Albumin 2.3 g/dL (3.4-5.0) Laboratory Tests Test 09/01/18 16:41 09/01/18 21:17 09/02/18 07:00 09/02/18 10:30 Glucose (Fingerstick) 107 mg/dL (70-99) 106 mg/dL (70-99) 79 mg/dL (70-99) White Blood Count 5.9 x10^3/uL (4.0-11.0) Red Blood Count 3.26 x10^6/uL (4.30-5.70) Hemoglobin 7.5 g/dL (13.0-17.5) Hematocrit 23.7 % (39.0-53.0) Mean Corpuscular Volume 73 fL (79-100) Mean Corpuscular Hemoglobin 23 pg (25-35) Mean Corpuscular Hemoglobin Concent 32 g/dL (31-37) Red Cell Distribution Width 18.6 % (11.5-14.5) Platelet Count 108 x10^3/uL (140-400) Neutrophils (%) (Auto) 58 % (31-73) Lymphocytes (%) (Auto) 21 % (24-48) Monocytes (%) (Auto) 15 % (0-9) Eosinophils (%) (Auto) 5 % (0-3) Basophils (%) (Auto) 1 % (0-3) Neutrophils # (Auto) 3.5 x10^3uL (1.8-7.7) Lymphocytes # (Auto) 1.3 x10^3/uL (1.0-4.8) Monocytes # (Auto) 0.9 x10^3/uL (0.0-1.1) Eosinophils # (Auto) 0.3 x10^3/uL (0.0-0.7) Basophils # (Auto) 0.1 x10^3/uL (0.0-0.2) Sodium Level 134 mmol/L (136-145) Potassium Level 4.6 mmol/L (3.5-5.1) Chloride Level 95 mmol/L (98-107) Carbon Dioxide Level 33 mmol/L (21-32) Anion Gap 6 (6-14) Blood Urea Nitrogen 74 mg/dL (8-26) Creatinine 14.5 mg/dL (0.7-1.3) Estimated GFR (Cockcroft-Gault) 4.3 Glucose Level 123 mg/dL (70-99) Calcium Level 8.1 mg/dL (8.5-10.1) Phosphorus Level 5.1 mg/dL (2.6-4.7) Albumin 2.3 g/dL (3.4-5.0) Test 09/02/18 10:40 Glucose (Fingerstick) 138 mg/dL (70-99) Microbiology 09/01/18 Blood Culture - Preliminary, Resulted NO GROWTH AFTER 1 DAY Medications Current Medications Sodium Chloride 1,000 ml @ 1,000 mls/hr 1X ONCE IV Last administered on 09/01/18at 07:28; Start 09/01/18 at 07:15; Stop 09/01/18 at 08:14; Status DC Acetaminophen (Tylenol) 1,000 mg 1X ONCE PO Last administered on 09/01/18at 07:28; Start 09/01/18 at 07:15; Stop 09/01/18 at 07:20; Status DC Ceftriaxone Sodium (Rocephin) 1 gm 1X ONCE IVP Last administered on 09/01/18at 08:00; Start 09/01/18 at 07:30; Stop 09/01/18 at 07:31; Status DC Ondansetron HCl (Zofran) 4 mg PRN Q8HRS PRN IV NAUSEA/VOMITING; Start 09/01/18 at 11:30; Stop 09/02/18 at 09:45; Status DC Fentanyl Citrate (Fentanyl 2ml Vial) 25 mcg 1X ONCE IV Last administered on 09/01/18at 13:43; Start 09/01/18 at 13:45; Stop 09/01/18 at 13:46; Status DC Ceftriaxone Sodium (Rocephin) 1 gm Q24H IVP ; Start 09/01/18 at 16:00; Stop 09/01/18 at 18:32; Status DC Heparin Sodium (Porcine) (Heparin Sodium) 5,000 unit BID SQ ; Start 09/01/18 at 21:00 Diazepam (Valium) 2 mg PRN DAILY PRN PO ANXIETY / AGITATION; Start 09/01/18 at 15:15; Status Cancel Metoclopramide HCl (Reglan Oral Solution) 2.5 mg TIDACHC PO ; Start 09/01/18 at 16:30; Status Cancel Citalopram Hydrobromide (CeleXA) 20 mg DAILY PO ; Start 09/02/18 at 09:00; Status Cancel Midodrine (Proamatine) 5 mg BID@0900,1700 PO ; Start 09/01/18 at 18:00; Stop 09/01/18 at 18:03; Status DC Ondansetron HCl (Zofran Odt) 4 mg PRN Q8HRS PRN PO NAUSEA/VOMITING Last administered on 09/02/18 09:43; Start 09/01/18 at 15:30 Non-Formulary Medication (Promethazine Hcl/Codeine (Promethazine-Codeine Syrup)) 10 ml QHS PO ; Start 09/01/18 at 21:00; Status UNV Timolol Maleate (Timoptic 0.5% Ophth) 1 drop DAILY OU ; Start 09/02/18 at 09:00; Status Cancel Calcium Acetate (Phoslo) 667 mg TIDWMEALS PO ; Start 09/01/18 at 17:00; Status Cancel Cinacalcet (Sensipar) 30 mg DAILYWSUP PO Last administered on 09/01/18at 21:24; Start 09/01/18 at 19:00 Dicyclomine HCl (Bentyl) 10 mg QID PRN PO ABD PAIN/CRAMPING Last administered on 09/02/18at 09:43; Start 09/01/18 at 18:15 Senna/Docusate Sodium (Senna Plus) 1 tab PRN DAILY PRN PO CONSTIPATION, 2ND CHOICE; Start 09/01/18 at 18:15 Sevelamer Carbonate (Renvela) 800 mg TIDWMEALS PO Last administered on 09/02/18at 11:57; Start 09/02/18 at 08:00 Tamsulosin HCl (Flomax) 0.4 mg DAILYWSUP PO Last administered on 09/01/18at 21:24; Start 09/01/18 at 19:00 Cyclobenzaprine HCl (Flexeril) 5 mg PRN Q8HRS PRN PO MUSCLE SPASMS; Start 09/01/18 at 18:30 Polyethylene Glycol (miraLAX PACKET) 17 gm PRN DAILY PRN PO CONSTIPATION, 1ST CHOICE; Start 09/02/18 at 09:00 Ceftriaxone Sodium (Rocephin) 1 gm Q24H IVP Last administered on 09/02/18 09:27; Start 09/02/18 at 09:00; Stop 09/02/18 at 11:32; Status DC Tramadol HCl (Ultram) 50 mg PRN Q6HRS PRN PO MODERATE PAIN Last administered on 09/02/18at 05:49; Start 09/01/18 at 22:30 Ondansetron HCl (Zofran) 4 mg PRN Q6HRS PRN IV NAUSEA/VOMITING; Start 09/02/18 at 09:45 Acetaminophen/ Hydrocodone Bitart (Lortab 5/325) 1 tab PRN Q8HRS PRN PO MODERATE PAIN Last administered on 09/02/18at 10:22; Start 09/02/18 at 09:45 Piperacillin Sod/ Tazobactam Sod 2.25 gm/Sodium Chloride 50 ml @ 100 mls/hr Q8HRS IV ; Start 09/02/18 at 14:00 Lactobacillus Rhamnosus (Culturelle) 1 cap BID PO ; Start 09/02/18 at 21:00 Active Scripts Active Reported Tramadol Hcl 50 Mg Tablet 50 Mg PO PRN Q8HRS PRN Flomax (Tamsulosin Hcl) 0.4 Mg Cap.er.24h 1 Cap PO DAILYWSUP Viagra (Sildenafil Citrate) 100 Mg Tablet 1 Tab PO PRN DAILY PRN Sensipar (Cinacalcet Hcl) 30 Mg Tablet 1 Tab PO DAILYWSUP Senna-Docusate Sodium Tablet (Sennosides/Docusate Sodium) 1 Each Tablet 1 Each PO PRN DAILY PRN Renvela (Sevelamer Carbonate) 800 Mg Tablet 1 Tab PO TIDWMEALS Polyethylene Glycol 3350 2,500 Gm Powder 17 Gm PO DAILY PRN Hydrocodone-Apap 5-325 (Hydrocodone Bit/Acetaminophen) 1 Tab Tablet 1 Tab PO PRN Q8HRS PRN Dicyclomine Hcl 10 Mg Capsule 10 Mg PO QID PRN Cyclobenzaprine Hcl 5 Mg Tablet 1 Tab PO TID PRN Vitals/I & O Vital Sign - Last 24 Hours 09/01/18 09/01/18 09/01/18 09/01/18 15:57 17:08 19:00 20:00 Temp 97.4 97.6 97.4 97.6 Pulse 63 58 Resp 18 18 B/P (MAP) 119/54 (75) 104/55 (71) Pulse Ox 100 99 O2 Delivery Room Air Room Air Room Air Room Air 09/01/18 09/01/18 09/02/18 09/02/18 22:50 23:00 05:49 06:54 Temp 98.0 98.0 Pulse 60 Resp 18 B/P (MAP) 99/57 (71) Pulse Ox 99 O2 Delivery Room Air Room Air Room Air Room Air 09/02/18 09/02/18 09/02/18 09/02/18 07:00 08:00 10:22 11:00 Temp 97.7 98.1 97.7 98.1 Pulse 59 67 Resp 20 20 B/P (MAP) 121/46 (71) 98/46 (63) Pulse Ox 99 98 O2 Delivery Room Air Room Air Room Air Room Air 09/02/18 11:22 O2 Delivery Room Air Intake and Output 09/01/18 09/01/18 09/02/18 15:00 23:00 07:00 Intake Total 1000 ml 1580 ml 400 ml Balance 1000 ml 1580 ml 400 ml IRENA REYNOLDS MD September 02, 2018 12:44
--- NOTE | 2018-09-02 13:58 | PDOC2 ---
CONSULT Date of Consult Date of Consult DATE: 09/02/18 TIME: 13:52 Reason for Consult Reason for Consult: ESRD Referring Physician Referring Physician: JOSH Identification/Chief Complaint Chief Complaint FEVERS AND DYSURIA Source Source: Chart review, Patient History of Present Illness Reason for Visit: THIS IS A 53 YR OLD WITH FEVERS AND DYSURIA. HE HAS ESRD AND IS ON OP HD ON TTS. WAS AT THE UNIT YESTERDAY AND DEVELOPED FEVERS AND CHILLS AND HIS HD WAS STOPPED AND HE WAS SENT TO ER. LABS ARE C/W ESRD. IMAGING WORRISOME FOR SOME BLADDER MASS. UROLOGY SEEING PT. Past Medical History Cardiovascular: HTN GI: Constipation Heme/Onc: Anemia NOS Renal/: Chronic renal failure Endocrine: Diabetes, Hyperparathyroidism Past Surgical History Past Surgical History: Other Family History Family History: Alcohol Abuse, Drug Abuse, Hypertension Social History No ALCOHOL: none Drugs: None, Other Current Problem List Problem List Problems Medical Problems: (1) Abdominal pain Status: Acute (2) ESRD (end stage renal disease) Status: Acute (3) UTI (urinary tract infection) Status: Acute Current Medications Current Medications Current Medications Sodium Chloride 1,000 ml @ 1,000 mls/hr 1X ONCE IV Last administered on 09/01/18at 07:28; Start 09/01/18 at 07:15; Stop 09/01/18 at 08:14; Status DC Acetaminophen (Tylenol) 1,000 mg 1X ONCE PO Last administered on 09/01/18at 07:28; Start 09/01/18 at 07:15; Stop 09/01/18 at 07:20; Status DC Ceftriaxone Sodium (Rocephin) 1 gm 1X ONCE IVP Last administered on 09/01/18at 08:00; Start 09/01/18 at 07:30; Stop 09/01/18 at 07:31; Status DC Ondansetron HCl (Zofran) 4 mg PRN Q8HRS PRN IV NAUSEA/VOMITING; Start 09/01/18 at 11:30; Stop 09/02/18 at 09:45; Status DC Fentanyl Citrate (Fentanyl 2ml Vial) 25 mcg 1X ONCE IV Last administered on 09/01/18at 13:43; Start 09/01/18 at 13:45; Stop 09/01/18 at 13:46; Status DC Ceftriaxone Sodium (Rocephin) 1 gm Q24H IVP ; Start 09/01/18 at 16:00; Stop 09/01/18 at 18:32; Status DC Heparin Sodium (Porcine) (Heparin Sodium) 5,000 unit BID SQ ; Start 09/01/18 at 21:00 Diazepam (Valium) 2 mg PRN DAILY PRN PO ANXIETY / AGITATION; Start 09/01/18 at 15:15; Status Cancel Metoclopramide HCl (Reglan Oral Solution) 2.5 mg TIDACHC PO ; Start 09/01/18 at 16:30; Status Cancel Citalopram Hydrobromide (CeleXA) 20 mg DAILY PO ; Start 09/02/18 at 09:00; Status Cancel Midodrine (Proamatine) 5 mg BID@0900,1700 PO ; Start 09/01/18 at 18:00; Stop 09/01/18 at 18:03; Status DC Ondansetron HCl (Zofran Odt) 4 mg PRN Q8HRS PRN PO NAUSEA/VOMITING Last administered on 09/02/18at 09:43; Start 09/01/18 at 15:30 Non-Formulary Medication (Promethazine Hcl/Codeine (Promethazine-Codeine Syrup)) 10 ml QHS PO ; Start 09/01/18 at 21:00; Status UNV Timolol Maleate (Timoptic 0.5% Oph) 1 drop DAILY OU ; Start 09/02/18 at 09:00; Status Cancel Calcium Acetate (Phoslo) 667 mg TIDWMEALS PO ; Start 09/01/18 at 17:00; Status Cancel Cinacalcet (Sensipar) 30 mg DAILYWSUP PO Last administered on 09/01/18at 21:24; Start 09/01/18 at 19:00 Dicyclomine HCl (Bentyl) 10 mg QID PRN PO ABD PAIN/CRAMPING Last administered on 09/02/18at 09:43; Start 09/01/18 at 18:15 Senna/Docusate Sodium (Senna Plus) 1 tab PRN DAILY PRN PO CONSTIPATION, 2ND CHOICE; Start 09/01/18 at 18:15 Sevelamer Carbonate (Renvela) 800 mg TIDWMEALS PO Last administered on 09/02/18at 11:57; Start 09/02/18 at 08:00 Tamsulosin HCl (Flomax) 0.4 mg DAILYWSUP PO Last administered on 09/01/18at 21:24; Start 09/01/18 at 19:00 Cyclobenzaprine HCl (Flexeril) 5 mg PRN Q8HRS PRN PO MUSCLE SPASMS; Start 09/01/18 at 18:30 Polyethylene Glycol (miraLAX PACKET) 17 gm PRN DAILY PRN PO CONSTIPATION, 1ST CHOICE; Start 09/02/18 at 09:00 Ceftriaxone Sodium (Rocephin) 1 gm Q24H IVP Last administered on 09/02/18at 09:27; Start 09/02/18 at 09:00; Stop 09/02/18 at 11:32; Status DC Tramadol HCl (Ultram) 50 mg PRN Q6HRS PRN PO MODERATE PAIN Last administered on 09/02/18at 05:49; Start 09/01/18 at 22:30 Ondansetron HCl (Zofran) 4 mg PRN Q6HRS PRN IV NAUSEA/VOMITING; Start 09/02/18 at 09:45 Acetaminophen/ Hydrocodone Bitart (Lortab 5/325) 1 tab PRN Q8HRS PRN PO MODERATE PAIN Last administered on 09/02/18at 10:22; Start 09/02/18 at 09:45 Piperacillin Sod/ Tazobactam Sod 2.25 gm/Sodium Chloride 50 ml @ 100 mls/hr Q8HRS IV ; Start 09/02/18 at 14:00 Lactobacillus Rhamnosus (Culturelle) 1 cap BID PO ; Start 09/02/18 at 21:00 Fentanyl Citrate (Fentanyl 2ml Vial) 50 mcg PRN Q2HR PRN IV SEVERE PAIN; Start 09/02/18 at 12:45 Lidocaine (Lidoderm) 1 patch DAILY TD ; Start 09/02/18 at 12:45 Miscellaneous (Lidoderm Patch Removal) 1 ea QHS MC ; Start 09/02/18 at 21:00 Active Scripts Active Reported Tramadol Hcl 50 Mg Tablet 50 Mg PO PRN Q8HRS PRN Flomax (Tamsulosin Hcl) 0.4 Mg Cap.er.24h 1 Cap PO DAILYWSUP Viagra (Sildenafil Citrate) 100 Mg Tablet 1 Tab PO PRN DAILY PRN Sensipar (Cinacalcet Hcl) 30 Mg Tablet 1 Tab PO DAILYWSUP Senna-Docusate Sodium Tablet (Sennosides/Docusate Sodium) 1 Each Tablet 1 Each PO PRN DAILY PRN Renvela (Sevelamer Carbonate) 800 Mg Tablet 1 Tab PO TIDWMEALS Polyethylene Glycol 3350 2,500 Gm Powder 17 Gm PO DAILY PRN Hydrocodone-Apap 5-325 (Hydrocodone Bit/Acetaminophen) 1 Tab Tablet 1 Tab PO PRN Q8HRS PRN Dicyclomine Hcl 10 Mg Capsule 10 Mg PO QID PRN Cyclobenzaprine Hcl 5 Mg Tablet 1 Tab PO TID PRN Allergies Allergies: Coded Allergies: No Known Drug Allergies (Unverified , 08/16/14) ROS General: YES: Chills, Fatigue, Appetite PSYCHOLOGICAL ROS: YES: Depression Eyes: Yes Decreased vision Respiratory: YES: Cough Genitourinary: YES Dysuria, YES Frequency, YES Retention Musculoskeletal: Yes Muscular Weakness Neurological: Yes Weakness Skin: Yes Dry Skin Physical Exam General: Alert, Oriented X3, Cooperative, No acute distress HEENT: Atraumatic, PERRLA Lungs: Clear to auscultation Heart: Regular rate, Normal S1 Abdomen: No tenderness Extremities: No clubbing Skin: No rashes Neuro: Normal speech, Sensation intact Psych/Mental Status: Mental status NL, Mood NL MUSCULOSKELETAL: No joint tenderness, No deformity, No swelling Vitals VITALS Vital Signs Date Time Temp Pulse Resp B/P (MAP) Pulse Ox O2 Delivery O2 Flow Rate FiO2 09/02/18 11:22 Room Air 09/02/18 11:00 98.1 67 20 98/46 (63) 98 98.1 Labs Labs Laboratory Tests Test 09/01/18 07:00 09/01/18 07:25 09/01/18 11:00 09/01/18 16:41 Urine Collection Type Unknown Urine Color Straw Urine Clarity Turbid Urine pH 7.5 Urine Specific [place] 1.015 Urine Protein 100 mg/dL (NEG-TRACE) Urine Glucose (UA) Negative mg/dL (NEG) Urine Ketones (Stick) Negative mg/dL (NEG) Urine Blood Large (NEG) Urine Nitrite Negative (NEG) Urine Bilirubin Negative (NEG) Urine Urobilinogen Dipstick 0.2 mg/dL (0.2 mg/dL) Urine Leukocyte Esterase Moderate (NEG) Urine RBC 0 /HPF (0-2) Urine WBC Tntc /HPF (0-4) Urine Squamous Epithelial Cells Few /LPF Urine Bacteria 0 /HPF (0-FEW) White Blood Count 7.8 x10^3/uL (4.0-11.0) Red Blood Count 3.29 x10^6/uL (4.30-5.70) Hemoglobin 7.7 g/dL (13.0-17.5) Hematocrit 24.2 % (39.0-53.0) Mean Corpuscular Volume 74 fL (79-100) Mean Corpuscular Hemoglobin 24 pg (25-35) Mean Corpuscular Hemoglobin Concent 32 g/dL (31-37) Red Cell Distribution Width 18.4 % (11.5-14.5) Platelet Count 85 x10^3/uL (140-400) Neutrophils (%) (Auto) 74 % (31-73) Lymphocytes (%) (Auto) 11 % (24-48) Monocytes (%) (Auto) 12 % (0-9) Eosinophils (%) (Auto) 3 % (0-3) Basophils (%) (Auto) 1 % (0-3) Neutrophils # (Auto) 5.8 x10^3uL (1.8-7.7) Lymphocytes # (Auto) 0.8 x10^3/uL (1.0-4.8) Monocytes # (Auto) 0.9 x10^3/uL (0.0-1.1) Eosinophils # (Auto) 0.3 x10^3/uL (0.0-0.7) Basophils # (Auto) 0.1 x10^3/uL (0.0-0.2) Platelet Estimate Decreased (ADEQUATE) Large Platelets Present Target Cells Present Prothrombin Time 13.4 SEC (11.7-14.0) Prothromb Time International Ratio 1.1 (0.8-1.1) Activated Partial Thromboplast Time 31 SEC (24-38) Sodium Level 133 mmol/L (136-145) Potassium Level 4.0 mmol/L (3.5-5.1) Chloride Level 93 mmol/L (98-107) Carbon Dioxide Level 33 mmol/L (21-32) Anion Gap 7 (6-14) Blood Urea Nitrogen 62 mg/dL (8-26) Creatinine 13.2 mg/dL (0.7-1.3) Estimated GFR (Cockcroft-Gault) 4.8 BUN/Creatinine Ratio 5 (6-20) Glucose Level 100 mg/dL (70-99) Lactic Acid Level 1.1 mmol/L (0.4-2.0) 0.7 mmol/L (0.4-2.0) Calcium Level 8.6 mg/dL (8.5-10.1) Total Bilirubin 0.4 mg/dL (0.2-1.0) Aspartate Amino Transf (AST/SGOT) 22 U/L (15-37) Alanine Aminotransferase (ALT/SGPT) 18 U/L (16-63) Alkaline Phosphatase 70 U/L (46-116) Creatine Kinase 141 U/L (39-308) Creatine Kinase MB (Mass) 0.7 ng/mL (0.0-3.6) Creatine Kinase MB Relative Index 0.5 % (0-4) Troponin I Quantitative 0.017 ng/mL (0.000-0.055) Total Protein 6.8 g/dL (6.4-8.2) Albumin 2.7 g/dL (3.4-5.0) Albumin/Globulin Ratio 0.7 (1.0-1.7) Lipase 334 U/L (73-393) Glucose (Fingerstick) 107 mg/dL (70-99) Test 09/01/18 21:17 09/02/18 07:00 09/02/18 10:30 09/02/18 10:40 Glucose (Fingerstick) 106 mg/dL (70-99) 79 mg/dL (70-99) 138 mg/dL (70-99) White Blood Count 5.9 x10^3/uL (4.0-11.0) Red Blood Count 3.26 x10^6/uL (4.30-5.70) Hemoglobin 7.5 g/dL (13.0-17.5) Hematocrit 23.7 % (39.0-53.0) Mean Corpuscular Volume 73 fL (79-100) Mean Corpuscular Hemoglobin 23 pg (25-35) Mean Corpuscular Hemoglobin Concent 32 g/dL (31-37) Red Cell Distribution Width 18.6 % (11.5-14.5) Platelet Count 108 x10^3/uL (140-400) Neutrophils (%) (Auto) 58 % (31-73) Lymphocytes (%) (Auto) 21 % (24-48) Monocytes (%) (Auto) 15 % (0-9) Eosinophils (%) (Auto) 5 % (0-3) Basophils (%) (Auto) 1 % (0-3) Neutrophils # (Auto) 3.5 x10^3uL (1.8-7.7) Lymphocytes # (Auto) 1.3 x10^3/uL (1.0-4.8) Monocytes # (Auto) 0.9 x10^3/uL (0.0-1.1) Eosinophils # (Auto) 0.3 x10^3/uL (0.0-0.7) Basophils # (Auto) 0.1 x10^3/uL (0.0-0.2) Sodium Level 134 mmol/L (136-145) Potassium Level 4.6 mmol/L (3.5-5.1) Chloride Level 95 mmol/L (98-107) Carbon Dioxide Level 33 mmol/L (21-32) Anion Gap 6 (6-14) Blood Urea Nitrogen 74 mg/dL (8-26) Creatinine 14.5 mg/dL (0.7-1.3) Estimated GFR (Cockcroft-Gault) 4.3 Glucose Level 123 mg/dL (70-99) Calcium Level 8.1 mg/dL (8.5-10.1) Phosphorus Level 5.1 mg/dL (2.6-4.7) Albumin 2.3 g/dL (3.4-5.0) Laboratory Tests Test 09/01/18 16:41 09/01/18 21:17 09/02/18 07:00 09/02/18 10:30 Glucose (Fingerstick) 107 mg/dL (70-99) 106 mg/dL (70-99) 79 mg/dL (70-99) White Blood Count 5.9 x10^3/uL (4.0-11.0) Red Blood Count 3.26 x10^6/uL (4.30-5.70) Hemoglobin 7.5 g/dL (13.0-17.5) Hematocrit 23.7 % (39.0-53.0) Mean Corpuscular Volume 73 fL (79-100) Mean Corpuscular Hemoglobin 23 pg (25-35) Mean Corpuscular Hemoglobin Concent 32 g/dL (31-37) Red Cell Distribution Width 18.6 % (11.5-14.5) Platelet Count 108 x10^3/uL (140-400) Neutrophils (%) (Auto) 58 % (31-73) Lymphocytes (%) (Auto) 21 % (24-48) Monocytes (%) (Auto) 15 % (0-9) Eosinophils (%) (Auto) 5 % (0-3) Basophils (%) (Auto) 1 % (0-3) Neutrophils # (Auto) 3.5 x10^3uL (1.8-7.7) Lymphocytes # (Auto) 1.3 x10^3/uL (1.0-4.8) Monocytes # (Auto) 0.9 x10^3/uL (0.0-1.1) Eosinophils # (Auto) 0.3 x10^3/uL (0.0-0.7) Basophils # (Auto) 0.1 x10^3/uL (0.0-0.2) Sodium Level 134 mmol/L (136-145) Potassium Level 4.6 mmol/L (3.5-5.1) Chloride Level 95 mmol/L (98-107) Carbon Dioxide Level 33 mmol/L (21-32) Anion Gap 6 (6-14) Blood Urea Nitrogen 74 mg/dL (8-26) Creatinine 14.5 mg/dL (0.7-1.3) Estimated GFR (Cockcroft-Gault) 4.3 Glucose Level 123 mg/dL (70-99) Calcium Level 8.1 mg/dL (8.5-10.1) Phosphorus Level 5.1 mg/dL (2.6-4.7) Albumin 2.3 g/dL (3.4-5.0) Test 09/02/18 10:40 Glucose (Fingerstick) 138 mg/dL (70-99) Images Images IMPRESSION: 1. Large irregular prostate is again identified indistinguishable from the inferior urinary bladder. Increased urinary bladder wall thickening. Malignancy of the urinary bladder and/or prostate gland is possible. 2. Development of hydronephroureter bilaterally, could be due to ascending infection or outlet obstruction. No evidence of obstructive calcified stone. Assessment/Plan Assessment/Plan IMP ESRD ANEMIA UTI HTN BPH BLADDER MASS PLAN [facility] HD TTS CYSTO UROLOGY FOLLOWING WILL FOLLOW NAA MOISE MD September 02, 2018 13:58
--- NOTE | 2018-09-02 14:29 | NUR ---
DEJA consulted to assist with an appointment with Urology. DEJA phoned [facility] and set up an appointment for 09/23/18 at 0945. Pt aware of plan and is provided with appointment reminder card. RN notified. Addendum: 09/05/18 at 0850 by MARIANNA SHORT Pt has dialysis at [facility] [place] on and [address].
[2018-09-02] MEDS: LIDOCAINE (700MG/PATCH) PATCH. TD SCH (14:53)
[2018-09-02] MEDS: PIPERACILLIN/TAZOBACTAM 2.25 GM in IV NORMAL SALINE 50ML 50 ML IV SCH ×2 (14:53→22:56)
[2018-09-02] MEDS: fentaNYL PF VIAL 100 MCG/2 ML VIAL IV PRN (14:54)
[2018-09-02 15:00] VITALS: BP 93/39
[2018-09-02] MEDS: CINACALCET HCL 30 MG TABLET PO SCH (16:53)
[2018-09-02] MEDS: TAMSULOSIN 0.4 MG CAP.ER.24H. PO SCH (16:53)
[2018-09-02 19:40] VITALS: BP 116/46
[2018-09-02] MEDS: LACTOBACILLUS RHAMNOSUS GG 1 CAPSULE. PO SCH (20:31)
[2018-09-02] MEDS: PATCH REMOVAL. MC SCH (20:31)
[2018-09-02] MEDS ORDERED: DARBEPOETIN ALFA 60 MCG/0.3 ML DISP.SYRIN. SQ SCH (21:00)
[2018-09-02 23:34] VITALS: BP 116/42
--- NOTE | 2018-09-03 01:46 | CONS ---
DATE OF CONSULTATION: 09/02/2018 REFERRING PHYSICIAN: Dr. Liang. REASON FOR CONSULTATION: Antibiotic management for UTI. HISTORY OF PRESENT ILLNESS: A 53-year-old male with complaints of fever at dialysis center of 100.2, dysuria, generalized abdominal pain, was admitted through the ER on 09/02/2018. He has been seen by Urology in the past and was told to get cystoscopy, which he did not followup. The patient had fever of 100.2 here. White count was normal. UA showed large blood, negative nitrite and leukocyte esterase moderate, wbc's too numerous to count. Blood cultures and urine cultures were done, which are pending at this time. Abdominal and pelvic CT showed large irregular prostate, again identified with increased urinary bladder wall thickening, malignancy of urinary bladder or prostate gland is possible, development of hydroureter bilaterally, could be due to ascending infection or outlet obstruction. No evidence of obstructive calcified stone. The patient underwent a chest x-ray, which shows no acute cardiopulmonary abnormality. PAST MEDICAL HISTORY: Hypertension, constipation, anemia, chronic renal failure, diabetes, hyperparathyroidism, end-stage renal disease, on hemodialysis through a fistula in the left upper extremity. SOCIAL HISTORY: Denies smoking, ETOH or illicit drug use. FAMILY HISTORY: As per HPI. CURRENT MEDICATION: IV ceftriaxone. REVIEW OF SYSTEMS: Negative except for above. ALLERGIES: No known drug allergies. PHYSICAL EXAMINATION: VITAL SIGNS: T-max 100.2, current temperature 97.7, pulse 69, respiratory rate 20, blood pressure 121/46, oxygen saturation 99% on room air. GENERAL: Alert and oriented x 3 male lying in bed comfortably, in no acute distress, pleasant, cooperative. HEENT: Normocephalic, atraumatic. Anicteric. No thrush. Oral mucosa moist. NECK: Supple. No JVD. No thyromegaly. LUNGS: Clear bilaterally, no wheezing. HEART: S1, S2, no murmurs, no rubs. ABDOMEN: Soft, obese. Bowel sounds present. Previous scars well healed. No rebound, no guarding. Mild tenderness in the suprapubic area. DERMATOLOGIC: Warm, dry, no generalized rash. Multiple scars well healed. PSYCHIATRIC: Normal mood and affect. NEUROLOGIC: Alert and oriented x 3. LABORATORY DATA: WBC 5.9, hemoglobin 7.5, hematocrit 23.7, platelets 108. Sodium 133, potassium 4.0, chloride 93, bicarbonate 23, BUN 62, creatinine 13.2, glucose 100. LFTs within normal limits. Albumin 2.7. Troponin normal. Lipase normal. Lactate 1.1. Micro blood culture 09/01/2018 pending at this time. Urine culture 09/01/[address] pending at this time. CT A/P as above IMPRESSION: 1. Fever. 2. Urinary tract infection. 3. Prostate enlargement. 4. Urinary bladder thickening. 5. End-stage renal disease, on hemodialysis. 6. Bilateral hydronephrosis RECOMMENDATIONS: 1. Discontinue ceftriaxone.Start Zosyn. 2. Urology consulted 3. Follow up urine and blood cultures. 4. Follow up labs in a.m. 5. Follow temperature pattern. 6. Continue supportive care. Thank you for allowing me to participate in this patient's care. If you have any questions, do not hesitate to contact me. TOBIN RAY MD DR: HARSH/carina JOB#: [id number] / [id number] ESTRELLA
[2018-09-03 03:41] VITALS: BP 115/39
[2018-09-03] MEDS: HYDROcodone/APAP 5/325MG 1 TAB TABLET PO PRN ×2 (03:48→19:10)
[2018-09-03] MEDS: PIPERACILLIN/TAZOBACTAM 2.25 GM in IV NORMAL SALINE 50ML 50 ML IV SCH ×3 (05:26→22:11)
[2018-09-03 07:00] VITALS: BP 102/49
[2018-09-03] MEDS: SEVELAMER CARBONATE 800 MG TABLET. PO SCH ×3 (08:34→17:58)
[2018-09-03] MEDS: LIDOCAINE (700MG/PATCH) PATCH. TD SCH ×2 (09:00→18:06)
[2018-09-03] MEDS: LACTOBACILLUS RHAMNOSUS GG 1 CAPSULE. PO SCH ×2 (09:00→22:11)
[2018-09-03] MEDS: HEPARIN for SUB-Q USE 5,000 UNIT/ML VIAL. SQ SCH ×2 (09:00→21:00)
[2018-09-03] MEDS ORDERED: LIDO700A39 TD (09:51)
[2018-09-03 09:53] LABS: HEMATOCRIT 23.7 % (39.0-53.0); HEMOGLOBIN 7.7 g/dL (13.0-17.5); RED BLOOD COUNT 3.25 x10^6/uL (4.30-5.70); RED CELL DISTRIBUTION WIDTH 18.5 % (11.5-14.5); WHITE BLOOD COUNT 5.4 x10^3/uL (4.0-11.0)
[2018-09-03 10:02] LABS: CALCIUM 7.9 mg/dL (8.5-10.1); CREATININE 14.9 mg/dL (0.7-1.3); GFR 4.2; POTASSIUM 4.6 mmol/L (3.5-5.1)
[2018-09-03 11:00] VITALS: BP 92/36
[2018-09-03] MEDS: CYCLOBENZAPRINE 10 MG TABLET. PO PRN (11:31)
[2018-09-03] MEDS: fentaNYL PF VIAL 100 MCG/2 ML VIAL IV PRN (11:31)
--- NOTE | 2018-09-03 11:31 | PDOC ---
PROGRESS NOTES Chief Complaint Chief Complaint Fever UTI prostate enlargement Thrombocytopenia ESRD on dialysis TTH S - missed session Anemia of ESRD History of Present Illness History of Present Illness He follows with urologist at Urology note reviewed PVR, otherwise continue current current treatment Appreciate ID Fever UTI on admit, IV antibiotics But so far no fevers since admission NOrmal wbc, non toxic appearing Urine cultures are pending - will take days He says he feels like crap but I think he tends to symptom magnify Plan for dialysis later Plan okay to DC later when shifted to by mouth anti-biotics after HD Dialysis later My Rx are all on chart Follow-up with urology Vitals Vitals Vital Signs Date Time Temp Pulse Resp B/P (MAP) Pulse Ox O2 Delivery O2 Flow Rate FiO2 09/03/18 07:00 97.4 54 14 102/49 (66) 97 Room Air 97.4 Physical Exam General: Alert, Oriented X3, Cooperative, No acute distress Heart: Regular rate, Normal S1 Lungs: Clear Abdomen: No tenderness Extremities: No clubbing Skin: No rashes Labs LABS Laboratory Tests Test 09/02/18 16:30 09/02/18 20:48 09/03/18 08:08 09/03/18 08:35 Glucose (Fingerstick) 85 mg/dL (70-99) 89 mg/dL (70-99) 88 mg/dL (70-99) Sodium Level 134 mmol/L (136-145) Potassium Level 4.6 mmol/L (3.5-5.1) Chloride Level 97 mmol/L (98-107) Carbon Dioxide Level 31 mmol/L (21-32) Anion Gap 6 (6-14) Blood Urea Nitrogen 80 mg/dL (8-26) Creatinine 14.9 mg/dL (0.7-1.3) Estimated GFR (Cockcroft-Gault) 4.2 Glucose Level 77 mg/dL (70-99) Calcium Level 7.9 mg/dL (8.5-10.1) Test 09/03/18 08:55 09/03/18 11:13 White Blood Count 5.4 x10^3/uL (4.0-11.0) Red Blood Count 3.25 x10^6/uL (4.30-5.70) Hemoglobin 7.7 g/dL (13.0-17.5) Hematocrit 23.7 % (39.0-53.0) Mean Corpuscular Volume 73 fL (79-100) Mean Corpuscular Hemoglobin 24 pg (25-35) Mean Corpuscular Hemoglobin Concent 32 g/dL (31-37) Red Cell Distribution Width 18.5 % (11.5-14.5) Platelet Count 97 x10^3/uL (140-400) Glucose (Fingerstick) 116 mg/dL (70-99) Review of Systems Review of Systems A 14 point ROS was completed with the following noted as positive: Other systems reviewed and negative. \CONSTITUTIONAL: No fever or chills EYES: No recent changes SKIN: No rash or itching CARDIOVASCULAR: No chest pain, syncope, palpitations, or edema RESPIRATORY: No SOB or cough GASTROINTESTINAL: No nausea, vomiting or abdominal pain NEUROLOGICAL: No headaches or weakness ENDOCRINE: No cold or heat intolerance GENITOURINARY: No urgency or frequency of urination MUSCULOSKELETAL: No back pain or joint pain LYMPHATICS: No enlarged lymph nodes PSYCHIATRIC: No anxiety or depression Assessment and Plan Assessmemt and Plan Problems Medical Problems: (1) Abdominal pain Status: Acute (2) ESRD (end stage renal disease) Status: Acute (3) UTI (urinary tract infection) Status: Acute Comment Review of Relevant I have reviewed the following items katherine (where applicable) has been applied. Labs Laboratory Tests Test 09/01/18 16:41 09/01/18 21:17 09/02/18 07:00 09/02/18 10:30 Glucose (Fingerstick) 107 mg/dL (70-99) 106 mg/dL (70-99) 79 mg/dL (70-99) White Blood Count 5.9 x10^3/uL (4.0-11.0) Red Blood Count 3.26 x10^6/uL (4.30-5.70) Hemoglobin 7.5 g/dL (13.0-17.5) Hematocrit 23.7 % (39.0-53.0) Mean Corpuscular Volume 73 fL (79-100) Mean Corpuscular Hemoglobin 23 pg (25-35) Mean Corpuscular Hemoglobin Concent 32 g/dL (31-37) Red Cell Distribution Width 18.6 % (11.5-14.5) Platelet Count 108 x10^3/uL (140-400) Neutrophils (%) (Auto) 58 % (31-73) Lymphocytes (%) (Auto) 21 % (24-48) Monocytes (%) (Auto) 15 % (0-9) Eosinophils (%) (Auto) 5 % (0-3) Basophils (%) (Auto) 1 % (0-3) Neutrophils # (Auto) 3.5 x10^3uL (1.8-7.7) Lymphocytes # (Auto) 1.3 x10^3/uL (1.0-4.8) Monocytes # (Auto) 0.9 x10^3/uL (0.0-1.1) Eosinophils # (Auto) 0.3 x10^3/uL (0.0-0.7) Basophils # (Auto) 0.1 x10^3/uL (0.0-0.2) Sodium Level 134 mmol/L (136-145) Potassium Level 4.6 mmol/L (3.5-5.1) Chloride Level 95 mmol/L (98-107) Carbon Dioxide Level 33 mmol/L (21-32) Anion Gap 6 (6-14) Blood Urea Nitrogen 74 mg/dL (8-26) Creatinine 14.5 mg/dL (0.7-1.3) Estimated GFR (Cockcroft-Gault) 4.3 Glucose Level 123 mg/dL (70-99) Calcium Level 8.1 mg/dL (8.5-10.1) Phosphorus Level 5.1 mg/dL (2.6-4.7) Albumin 2.3 g/dL (3.4-5.0) Prostate Specific Antigen 6.21 ng/mL (0.00-4.00) Test 09/02/18 10:40 09/02/18 16:30 09/02/18 20:48 09/03/18 08:08 Glucose (Fingerstick) 138 mg/dL (70-99) 85 mg/dL (70-99) 89 mg/dL (70-99) 88 mg/dL (70-99) Test 09/03/18 08:35 09/03/18 08:55 09/03/18 11:13 Sodium Level 134 mmol/L (136-145) Potassium Level 4.6 mmol/L (3.5-5.1) Chloride Level 97 mmol/L (98-107) Carbon Dioxide Level 31 mmol/L (21-32) Anion Gap 6 (6-14) Blood Urea Nitrogen 80 mg/dL (8-26) Creatinine 14.9 mg/dL (0.7-1.3) Estimated GFR (Cockcroft-Gault) 4.2 Glucose Level 77 mg/dL (70-99) Calcium Level 7.9 mg/dL (8.5-10.1) White Blood Count 5.4 x10^3/uL (4.0-11.0) Red Blood Count 3.25 x10^6/uL (4.30-5.70) Hemoglobin 7.7 g/dL (13.0-17.5) Hematocrit 23.7 % (39.0-53.0) Mean Corpuscular Volume 73 fL (79-100) Mean Corpuscular Hemoglobin 24 pg (25-35) Mean Corpuscular Hemoglobin Concent 32 g/dL (31-37) Red Cell Distribution Width 18.5 % (11.5-14.5) Platelet Count 97 x10^3/uL (140-400) Glucose (Fingerstick) 116 mg/dL (70-99) Laboratory Tests Test 09/02/18 16:30 09/02/18 20:48 09/03/18 08:08 09/03/18 08:35 Glucose (Fingerstick) 85 mg/dL (70-99) 89 mg/dL (70-99) 88 mg/dL (70-99) Sodium Level 134 mmol/L (136-145) Potassium Level 4.6 mmol/L (3.5-5.1) Chloride Level 97 mmol/L (98-107) Carbon Dioxide Level 31 mmol/L (21-32) Anion Gap 6 (6-14) Blood Urea Nitrogen 80 mg/dL (8-26) Creatinine 14.9 mg/dL (0.7-1.3) Estimated GFR (Cockcroft-Gault) 4.2 Glucose Level 77 mg/dL (70-99) Calcium Level 7.9 mg/dL (8.5-10.1) Test 09/03/18 08:55 09/03/18 11:13 White Blood Count 5.4 x10^3/uL (4.0-11.0) Red Blood Count 3.25 x10^6/uL (4.30-5.70) Hemoglobin 7.7 g/dL (13.0-17.5) Hematocrit 23.7 % (39.0-53.0) Mean Corpuscular Volume 73 fL (79-100) Mean Corpuscular Hemoglobin 24 pg (25-35) Mean Corpuscular Hemoglobin Concent 32 g/dL (31-37) Red Cell Distribution Width 18.5 % (11.5-14.5) Platelet Count 97 x10^3/uL (140-400) Glucose (Fingerstick) 116 mg/dL (70-99) Microbiology 09/01/18 Blood Culture - Preliminary, Resulted NO GROWTH AFTER 2 DAYS Medications Current Medications Sodium Chloride 1,000 ml @ 1,000 mls/hr 1X ONCE IV Last administered on 09/01/18at 07:28; Start 09/01/18 at 07:15; Stop 09/01/18 at 08:14; Status DC Acetaminophen (Tylenol) 1,000 mg 1X ONCE PO Last administered on 09/01/18at 07:28; Start 09/01/18 at 07:15; Stop 09/01/18 at 07:20; Status DC Ceftriaxone Sodium (Rocephin) 1 gm 1X ONCE IVP Last administered on 09/01/18at 08:00; Start 09/01/18 at 07:30; Stop 09/01/18 at 07:31; Status DC Ondansetron HCl (Zofran) 4 mg PRN Q8HRS PRN IV NAUSEA/VOMITING; Start 09/01/18 a t 11:30; Stop 09/02/18 at 09:45; Status DC Fentanyl Citrate (Fentanyl 2ml Vial) 25 mcg 1X ONCE IV Last administered on 09/01/18at 13:43; Start 09/01/18 at 13:45; Stop 09/01/18 at 13:46; Status DC Ceftriaxone Sodium (Rocephin) 1 gm Q24H IVP ; Start 09/01/18 at 16:00; Stop 09/01/18 at 18:32; Status DC Heparin Sodium (Porcine) (Heparin Sodium) 5,000 unit BID SQ ; Start 09/01/18 at 21:00 Diazepam (Valium) 2 mg PRN DAILY PRN PO ANXIETY / AGITATION; Start 09/01/18 at 15:15; Status Cancel Metoclopramide HCl (Reglan Oral Solution) 2.5 mg TIDACHC PO ; Start 09/01/18 at 16:30; Status Cancel Citalopram Hydrobromide (CeleXA) 20 mg DAILY PO ; Start 09/02/18 at 09:00; Status Cancel Midodrine (Proamatine) 5 mg BID@0900,1700 PO ; Start 09/01/18 at 18:00; Stop 09/01/18 at 18:03; Status DC Ondansetron HCl (Zofran Odt) 4 mg PRN Q8HRS PRN PO NAUSEA/VOMITING Last administered on 09/02/18at 09:43; Start 09/01/18 at 15:30 Non-Formulary Medication (Promethazine Hcl/Codeine (Promethazine-Codeine Syrup)) 10 ml QHS PO ; Start 09/01/18 at 21:00; Status UNV Timolol Maleate (Timoptic 0.5% Oph) 1 drop DAILY OU ; Start 09/02/18 at 09:00; Status Cancel Calcium Acetate (Phoslo) 667 mg TIDWMEALS PO ; Start 09/01/18 at 17:00; Status Cancel Cinacalcet (Sensipar) 30 mg DAILYWSUP PO Last administered on 09/02/18at 16:53; Start 09/01/18 at 19:00 Dicyclomine HCl (Bentyl) 10 mg QID PRN PO ABD PAIN/CRAMPING Last administered o n 09/02/18at 14:54; Start 09/01/18 at 18:15 Senna/Docusate Sodium (Senna Plus) 1 tab PRN DAILY PRN PO CONSTIPATION, 2ND CHOICE; Start 09/01/18 at 18:15 Sevelamer Carbonate (Renvela) 800 mg TIDWMEALS PO Last administered on 09/03/18at 08:34; Start 09/02/18 at 08:00 Tamsulosin HCl (Flomax) 0.4 mg DAILYWSUP PO Last administered on 09/02/18at 16:53; Start 09/01/18 at 19:00 Cyclobenzaprine HCl (Flexeril) 5 mg PRN Q8HRS PRN PO MUSCLE SPASMS; Start 09/01/18 at 18:30 Polyethylene Glycol (miraLAX PACKET) 17 gm PRN DAILY PRN PO CONSTIPATION, 1ST CHOICE; Start 09/02/18 at 09:00 Ceftriaxone Sodium (Rocephin) 1 gm Q24H IVP Last administered on 09/02/18 09:27; Start 09/02/18 at 09:00; Stop 09/02/18 at 11:32; Status DC Tramadol HCl (Ultram) 50 mg PRN Q6HRS PRN PO MODERATE PAIN Last administered on 09/02/18 05:49; Start 09/01/18 at 22:30 Ondansetron HCl (Zofran) 4 mg PRN Q6HRS PRN IV NAUSEA/VOMITING; Start 09/02/18 at 09:45 Acetaminophen/ Hydrocodone Bitart (Lortab 5/325) 1 tab PRN Q8HRS PRN PO MODERATE PAIN Last administered on 09/03/18 03:48; Start 09/02/18 at 09:45 Piperacillin Sod/ Tazobactam Sod 2.25 gm/Sodium Chloride 50 ml @ 100 mls/hr Q 8HRS IV Last administered on 09/03/18 05:26; Start 09/02/18 at 14:00 Lactobacillus Rhamnosus (Culturelle) 1 cap BID PO Last administered on 09/02/18 20:31; Start 09/02/18 at 21:00 Fentanyl Citrate (Fentanyl 2ml Vial) 50 mcg PRN Q2HR PRN IV SEVERE PAIN Last administered on 09/02/18 14:54; Start 09/02/18 at 12:45 Lidocaine (Lidoderm) 1 patch DAILY TD Last administered on 09/02/18at 14:53; Start 09/02/18 at 12:45 Miscellaneous (Lidoderm Patch Removal) 1 ea QHS MC ; Start 09/02/18 at 21:00 Darbepoetin Vimal (Aranesp) 60 mcg WEEKLYHS SQ Last administered on 09/02/18 20:31; Start 09/02/18 at 21:00 Active Scripts Active Lidocaine 1 Each Adh..patch 1 Patch TD DAILY MDD 1 Reported Tramadol Hcl 50 Mg Tablet 50 Mg PO PRN Q8HRS PRN Flomax (Tamsulosin Hcl) 0.4 Mg Cap.er.24h 1 Cap PO DAILYWSUP Viagra (Sildenafil Citrate) 100 Mg Tablet 1 Tab PO PRN DAILY PRN Sensipar (Cinacalcet Hcl) 30 Mg Tablet 1 Tab PO DAILYWSUP Senna-Docusate Sodium Tablet (Sennosides/Docusate Sodium) 1 Each Tablet 1 Each PO PRN DAILY PRN Renvela (Sevelamer Carbonate) 800 Mg Tablet 1 Tab PO TIDWMEALS Polyethylene Glycol 3350 2,500 Gm Powder 17 Gm PO DAILY PRN Hydrocodone-Apap 5-325 (Hydrocodone Bit/Acetaminophen) 1 Tab Tablet 1 Tab PO PRN Q8HRS PRN Dicyclomine Hcl 10 Mg Capsule 10 Mg PO QID PRN Cyclobenzaprine Hcl 5 Mg Tablet 1 Tab PO TID PRN Vitals/I & O Vital Sign - Last 24 Hours 09/02/18 09/02/18 09/02/18 09/02/18 14:54 15:00 15:24 19:22 Temp 97.4 97.4 Pulse 54 Resp 20 16 B/P (MAP) 93/39 (57) Pulse Ox 100 100 O2 Delivery Room Air Room Air Room Air Room Air 09/02/18 09/02/18 09/02/18 09/03/18 19:40 20:10 23:34 03:41 Temp 97.4 97.5 97.5 97.4 97.5 97.5 Pulse 53 63 54 Resp 16 20 20 B/P (MAP) 116/46 (69) 116/42 (66) 115/39 (64) Pulse Ox 99 99 100 O2 Delivery Room Air Room Air Room Air Room Air 09/03/18 09/03/18 09/03/18 03:48 04:48 07:00 Temp 97.4 97.4 Pulse 54 Resp 16 16 14 B/P (MAP) 102/49 (66) Pulse Ox 100 100 97 O2 Delivery Room Air Room Air Room Air Intake and Output 09/02/18 09/02/18 09/03/18 15:00 23:00 07:00 Intake Total 300 ml 500 ml Balance 300 ml 500 ml IRENA REYNOLDS MD September 03, 2018 11:31
[2018-09-03] MEDS: traMADol 50 MG TABLET PO PRN ×2 (11:32→22:11)
[2018-09-03] MEDS ORDERED: IV NORMAL SALINE 1000ML BAG 1,000 ML IV PRN (13:00)
[2018-09-03] MEDS ORDERED: ACETAMINOPHEN 500 MG TABLET PO PRN (13:15)
[2018-09-03] MEDS ORDERED: DIALYSIS PATIENT. MC PRN (13:15)
[2018-09-03] MEDS ORDERED: diphenhydrAMINE 50 MG/ML VIAL IV PRN ×2 (13:15)
[2018-09-03] MEDS ORDERED: ALBUMIN HUMAN 25% 200 ML IV PRN (13:15)
--- NOTE | 2018-09-03 13:22 | PDOC ---
Infectious Disease Note Subjective Subjective c/o pain No fevers/chills last 24 hours No N/V/D ROS ROS per HPI Vital Sign Vital Signs Vital Signs Date Time Temp Pulse Resp B/P (MAP) Pulse Ox O2 Delivery O2 Flow Rate FiO2 09/03/18 11:32 22 Room Air 09/03/18 11:00 97.7 64 92/36 (54) 98 97.7 Physical Exam PHYSICAL EXAM GENERAL: Sleeping, arouse to name HEENT: Oral mucosa moist. NECK: Supple. LUNGS: Clear bilaterally, no wheezing. HEART: S1, S2, no murmurs, no rubs. ABDOMEN: Soft, obese. Bowel sounds present. No rebound, no guarding. Mild tenderness in the suprapubic area. DERMATOLOGIC: Warm, dry, no generalized rash. Multiple scars well healed. EXT: No gross masha. RUE-AV fistula unremarkable NEUROLOGIC: Responds appropriately LEJ clean Labs Lab Laboratory Tests Test 09/02/18 16:30 09/02/18 20:48 09/03/18 08:08 09/03/18 08:35 Glucose (Fingerstick) 85 mg/dL (70-99) 89 mg/dL (70-99) 88 mg/dL (70-99) Sodium Level 134 mmol/L (136-145) Potassium Level 4.6 mmol/L (3.5-5.1) Chloride Level 97 mmol/L (98-107) Carbon Dioxide Level 31 mmol/L (21-32) Anion Gap 6 (6-14) Blood Urea Nitrogen 80 mg/dL (8-26) Creatinine 14.9 mg/dL (0.7-1.3) Estimated GFR (Cockcroft-Gault) 4.2 Glucose Level 77 mg/dL (70-99) Calcium Level 7.9 mg/dL (8.5-10.1) Test 09/03/18 08:55 09/03/18 11:13 White Blood Count 5.4 x10^3/uL (4.0-11.0) Red Blood Count 3.25 x10^6/uL (4.30-5.70) Hemoglobin 7.7 g/dL (13.0-17.5) Hematocrit 23.7 % (39.0-53.0) Mean Corpuscular Volume 73 fL (79-100) Mean Corpuscular Hemoglobin 24 pg (25-35) Mean Corpuscular Hemoglobin Concent 32 g/dL (31-37) Red Cell Distribution Width 18.5 % (11.5-14.5) Platelet Count 97 x10^3/uL (140-400) Glucose (Fingerstick) 116 mg/dL (70-99) Micro Microbiology 09/01/18 Blood Culture - Preliminary, Resulted NO GROWTH AFTER 2 DAYS Objective Assessment Fever, resolved Urinary tract infection. UC pending Prostate enlargement. Urinary bladder thickening. End-stage renal disease, on hemodialysis. Bilateral hydronephrosis Plan Plan of Care Hold discharge Continue Zosyn Awaiting UC results D/w nursing Patient seen and examined. Chart reviewed in detail. Case discussed with [employer]. Agree with above plan. FREDY PEREZ APRN September 03, 2018 13:22 BUFFY BANERJEE MD September 03, 2018 22:21
--- NOTE | 2018-09-03 14:09 | PDOC ---
SUBJECTIVE ROS Seen on HD, tolerating well OBJECTIVE Vital Signs Vital Signs Date Time Temp Pulse Resp B/P (MAP) Pulse Ox O2 Delivery O2 Flow Rate FiO2 09/03/18 11:32 22 Room Air 09/03/18 11:00 97.7 64 92/36 (54) 98 97.7 I & 0 Intake and Output 09/03/18 07:00 Intake Total 800 ml Balance 800 ml Intake Oral 800 ml # Voids 3 PHYSICAL EXAM Physical Exam GENERAL: Alert and oriented x 3 male lying in bed comfortably, in no acute distress, pleasant, cooperative. HEENT: Normocephalic, atraumatic. Anicteric. No thrush. Oral mucosa moist. NECK: Supple. No JVD. No thyromegaly. LUNGS: Clear bilaterally, no wheezing. HEART: S1, S2, no murmurs, no rubs. ABDOMEN: Soft, obese. Bowel sounds present. Previous scars well healed. No rebound, no guarding. Mild tenderness in the suprapubic area. DERMATOLOGIC: Warm, dry, no generalized rash. Multiple scars well healed. PSYCHIATRIC: Normal mood and affect. NEUROLOGIC: Alert and oriented x 3. 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 Anemia- Aranesp UTI HTN- BP Low BPH Bladder mass Urology following COMMENT/RELEVANT DATA Meds Current Medications Medications (Trade) Dose Ordered Sig/Kiko Start Time Stop Time Status Last Admin Dose Admin Acetaminophen (Tylenol) 500 mg 1X PRN PRN 09/03/18 13:15 09/04/18 13:14 Acetaminophen/ Hydrocodone Bitart (Lortab 5/325) 1 tab PRN Q8HRS PRN 09/02/18 09:45 09/03/18 03:48 1 TAB Albumin Human 200 ml @ 200 mls/hr 1X PRN PRN 09/03/18 13:15 09/03/18 19:14 Calcium Acetate (Phoslo) 667 mg TIDWMEALS 09/01/18 17:00 Cancel Ceftriaxone Sodium (Rocephin) 1 gm Q24H 09/02/18 09:00 09/02/18 11:32 DC 09/02/18 09:27 1 GM Cinacalcet (Sensipar) 30 mg DAILYWSUP 09/01/18 19:00 09/02/18 16:53 30 MG Citalopram Hydrobromide (CeleXA) 20 mg DAILY 09/02/18 09:00 Cancel Cyclobenzaprine HCl (Flexeril) 5 mg PRN Q8HRS PRN 09/01/18 18:30 09/03/18 11:31 5 MG Darbepoetin Vimal (Aranesp) 60 mcg WEEKLYHS 09/02/18 21:00 09/02/18 20:31 60 MCG Diazepam (Valium) 2 mg PRN DAILY PRN 09/01/18 15:15 Cancel Dicyclomine HCl (Bentyl) 10 mg QID PRN 09/01/18 18:15 09/02/18 14:54 10 MG Diphenhydramine HCl (Benadryl) 25 mg 1X PRN PRN 09/03/18 13:15 09/04/18 13:14 Fentanyl Citrate (Fentanyl 2ml Vial) 50 mcg PRN Q2HR PRN 09/02/18 12:45 09/03/18 11:31 50 MCG Heparin Sodium (Porcine) (Heparin Sodium) 5,000 unit BID 09/01/18 21:00 Info (PHARMACY MONITORING -- do not chart) 1 each PRN DAILY PRN 09/03/18 13:15 Lactobacillus Rhamnosus (Culturelle) 1 cap BID 09/02/18 21:00 09/02/18 20:31 1 CAP Lidocaine (Lidoderm) 1 patch DAILY 09/02/18 12:45 09/02/18 14:53 1 PATCH Metoclopramide HCl (Reglan Oral Solution) 2.5 mg TIDACHC 09/01/18 16:30 Cancel Midodrine (Proamatine) 5 mg BID@0900,1700 09/01/18 18:00 09/01/18 18:03 DC Miscellaneous (Lidoderm Patch Removal) 1 ea QHS 09/02/18 21:00 Non-Formulary Medication (Promethazine Hcl/Codeine (Promethazine-Codeine Syrup)) 10 ml QHS 09/01/18 21:00 UNV Ondansetron HCl (Zofran Odt) 4 mg PRN Q8HRS PRN 09/01/18 15:30 09/02/18 09:43 4 MG Ondansetron HCl (Zofran) 4 mg PRN Q6HRS PRN 09/02/18 09:45 Piperacillin Sod/ Tazobactam Sod 2.25 gm/Sodium Chloride 50 ml @ 100 mls/hr Q8HRS 09/02/18 14:00 09/03/18 05:26 100 MLS/HR Polyethylene Glycol (miraLAX PACKET) 17 gm PRN DAILY PRN 09/02/18 09:00 Senna/Docusate Sodium (Senna Plus) 1 tab PRN DAILY PRN 09/01/18 18:15 Sevelamer Carbonate (Renvela) 800 mg TIDWMEALS 09/02/18 08:00 09/03/18 11:31 800 MG Sodium Chloride 1,000 ml @ 1,000 mls/hr Q1H PRN 09/03/18 13:00 09/03/18 19:00 Tamsulosin HCl (Flomax) 0.4 mg DAILYWSUP 09/01/18 19:00 09/02/18 16:53 0.4 MG Timolol Maleate (Timoptic 0.5% [facility]) 1 drop DAILY 09/02/18 09:00 Cancel Tramadol HCl (Ultram) 50 mg PRN Q6HRS PRN 09/01/18 22:30 09/03/18 11:32 50 MG Lab Laboratory Tests Test 09/02/18 16:30 09/02/18 20:48 09/03/18 08:08 09/03/18 08:35 Glucose (Fingerstick) 85 mg/dL (70-99) 89 mg/dL (70-99) 88 mg/dL (70-99) Sodium Level 134 mmol/L (136-145) Potassium Level 4.6 mmol/L (3.5-5.1) Chloride Level 97 mmol/L (98-107) Carbon Dioxide Level 31 mmol/L (21-32) Anion Gap 6 (6-14) Blood Urea Nitrogen 80 mg/dL (8-26) Creatinine 14.9 mg/dL (0.7-1.3) Estimated GFR (Cockcroft-Gault) 4.2 Glucose Level 77 mg/dL (70-99) Calcium Level 7.9 mg/dL (8.5-10.1) Test 09/03/18 08:55 5/11/19 11:13 White Blood Count 5.4 x10^3/uL (4.0-11.0) Red Blood Count 3.25 x10^6/uL (4.30-5.70) Hemoglobin 7.7 g/dL (13.0-17.5) Hematocrit 23.7 % (39.0-53.0) Mean Corpuscular Volume 73 fL (79-100) Mean Corpuscular Hemoglobin 24 pg (25-35) Mean Corpuscular Hemoglobin Concent 32 g/dL (31-37) Red Cell Distribution Width 18.5 % (11.5-14.5) Platelet Count 97 x10^3/uL (140-400) Glucose (Fingerstick) 116 mg/dL (70-99) Results All relevant outside records, renal labs, imaging studies, telemetry/EKG's were reviewed. LIN CHAIREZ MD September 03, 2018 14:09
[2018-09-03 15:00] VITALS: BP 113/45
[2018-09-03] MEDS: CINACALCET HCL 30 MG TABLET PO SCH (17:58)
[2018-09-03] MEDS: TAMSULOSIN 0.4 MG CAP.ER.24H. PO SCH (17:58)
[2018-09-03 19:30] VITALS: BP 110/54
[2018-09-03] MEDS: PATCH REMOVAL. MC SCH (21:00)
[2018-09-03 23:46] VITALS: BP 102/53
[2018-09-04] VITALS (8 sets, daily range): BP systolic 89–138; BP diastolic 43–62
[2018-09-04] MEDS: HYDROcodone/APAP 5/325MG 1 TAB TABLET PO PRN ×3 (03:11→21:05)
[2018-09-04] MEDS: CYCLOBENZAPRINE 10 MG TABLET. PO PRN ×3 (03:17→23:14)
[2018-09-04] MEDS: traMADol 50 MG TABLET PO PRN ×2 (05:22→23:14)
[2018-09-04] MEDS: PIPERACILLIN/TAZOBACTAM 2.25 GM in IV NORMAL SALINE 50ML 50 ML IV SCH ×3 (05:22→21:06)
[2018-09-04] MEDS: SEVELAMER CARBONATE 800 MG TABLET. PO SCH ×3 (07:53→16:56)
[2018-09-04] MEDS: DICYCLOMINE HCL 10 MG CAPSULE PO PRN (08:35)
[2018-09-04] MEDS: LACTOBACILLUS RHAMNOSUS GG 1 CAPSULE. PO SCH ×2 (08:35→21:05)
[2018-09-04] MEDS: LIDOCAINE (700MG/PATCH) PATCH. TD SCH (08:40)
[2018-09-04] MEDS: HEPARIN for SUB-Q USE 5,000 UNIT/ML VIAL. SQ SCH (08:40)
--- NOTE | 2018-09-04 11:25 | PDOC ---
PROGRESS NOTES Chief Complaint Chief Complaint Fever GNR UTI prostate enlargement Thrombocytopenia ESRD on dialysis TTH S - missed session Anemia of ESRD History of Present Illness History of Present Illness Urine culture is growing GNR No more fevers No white count Some lower abdominal discomfort-he requests Lortab every 6 not every 8-his home dose He's ambulating about-can DC DVT prophylaxis Plan Need to wait for urine cultures before discharging-discussed with ID DC telemetry DC heparin subcutaneous Lortab every 6 instead of every 8 hrs We'll DC home once urine identification and sensitivities are out Dialysis days are Saturdays Recheck labs tomorrow Vitals Vitals Vital Signs Date Time Temp Pulse Resp B/P (MAP) Pulse Ox O2 Delivery O2 Flow Rate FiO2 09/04/18 10:58 18 Room Air 09/04/18 08:09 97.6 61 107/59 (75) 99 1.0 97.6 Physical Exam Physical Exam GENERAL: Sleeping, arouse to name HEENT: Oral mucosa moist. NECK: Supple. LUNGS: Clear bilaterally, no wheezing. HEART: S1, S2, no murmurs, no rubs. ABDOMEN: Soft, obese. Bowel sounds present. No rebound, no guarding. Mild tenderness in the suprapubic area. DERMATOLOGIC: Warm, dry, no generalized rash. Multiple scars well healed. EXT: No gross masha. RUE-AV fistula unremarkable NEUROLOGIC: Responds appropriately LEJ clean General: Alert, Oriented X3, Cooperative, No acute distress Heart: Regular rate, Normal S1 Lungs: Clear Abdomen: No tenderness Extremities: No clubbing Skin: No rashes Labs LABS Laboratory Tests Test 09/03/18 17:41 09/03/18 19:41 09/04/18 07:40 Glucose (Fingerstick) 99 mg/dL (70-99) 140 mg/dL (70-99) 84 mg/dL (70-99) Review of Systems Review of Systems Lower abdominal discomfort the rest of ROS -14 point review Assessment and Plan Assessmemt and Plan Problems Medical Problems: (1) Abdominal pain Status: Acute (2) ESRD (end stage renal disease) Status: Acute (3) UTI (urinary tract infection) Status: Acute Comment Review of Relevant I have reviewed the following items katherine (where applicable) has been applied. Labs Laboratory Tests Test 09/02/18 16:30 09/02/18 20:48 09/03/18 08:08 09/03/18 08:35 Glucose (Fingerstick) 85 mg/dL (70-99) 89 mg/dL (70-99) 88 mg/dL (70-99) Sodium Level 134 mmol/L (136-145) Potassium Level 4.6 mmol/L (3.5-5.1) Chloride Level 97 mmol/L (98-107) Carbon Dioxide Level 31 mmol/L (21-32) Anion Gap 6 (6-14) Blood Urea Nitrogen 80 mg/dL (8-26) Creatinine 14.9 mg/dL (0.7-1.3) Estimated GFR (Cockcroft-Gault) 4.2 Glucose Level 77 mg/dL (70-99) Calcium Level 7.9 mg/dL (8.5-10.1) Test 09/03/18 08:55 09/03/18 11:13 09/03/18 17:41 09/03/18 19:41 White Blood Count 5.4 x10^3/uL (4.0-11.0) Red Blood Count 3.25 x10^6/uL (4.30-5.70) Hemoglobin 7.7 g/dL (13.0-17.5) Hematocrit 23.7 % (39.0-53.0) Mean Corpuscular Volume 73 fL (79-100) Mean Corpuscular Hemoglobin 24 pg (25-35) Mean Corpuscular Hemoglobin Concent 32 g/dL (31-37) Red Cell Distribution Width 18.5 % (11.5-14.5) Platelet Count 97 x10^3/uL (140-400) Glucose (Fingerstick) 116 mg/dL (70-99) 99 mg/dL (70-99) 140 mg/dL (70-99) Test 09/04/18 07:40 Glucose (Fingerstick) 84 mg/dL (70-99) Laboratory Tests Test 09/03/18 17:41 09/03/18 19:41 09/04/18 07:40 Glucose (Fingerstick) 99 mg/dL (70-99) 140 mg/dL (70-99) 84 mg/dL (70-99) Microbiology 09/01/18 Blood Culture - Preliminary, Resulted NO GROWTH AFTER 3 DAYS 09/01/18 Urine Culture - Preliminary, Resulted 09/01/18 Urine Culture Result 1 (HAM) - Preliminary, Resulted Medications Current Medications Sodium Chloride 1,000 ml @ 1,000 mls/hr 1X ONCE IV Last administered on 09/01/18at 07:28; Start 09/01/18 at 07:15; Stop 09/01/18 at 08:14; Status DC Acetaminophen (Tylenol) 1,000 mg 1X ONCE PO Last administered on 09/01/18at 07:28; Start 09/01/18 at 07:15; Stop 09/01/18 at 07:20; Status DC Ceftriaxone Sodium (Rocephin) 1 gm 1X ONCE IVP Last administered on 09/01/18at 08:00; Start 09/01/18 at 07:30; Stop 09/01/18 at 07:31; Status DC Ondansetron HCl (Zofran) 4 mg PRN Q8HRS PRN IV NAUSEA/VOMITING; Start 09/01/18 at 11:30; Stop 09/02/18 at 09:45; Status DC Fentanyl Citrate (Fentanyl 2ml Vial) 25 mcg 1X ONCE IV Last administered on 09/01/18at 13:43; Start 09/01/18 at 13:45; Stop 09/01/18 at 13:46; Status DC Ceftriaxone Sodium (Rocephin) 1 gm Q24H IVP ; Start 09/01/18 at 16:00; Stop 09/01/18 at 18:32; Status DC Heparin Sodium (Porcine) (Heparin Sodium) 5,000 unit BID SQ ; Start 09/01/18 at 21:00; Stop 09/04/18 at 11:23; Status DC Diazepam (Valium) 2 mg PRN DAILY PRN PO ANXIETY / AGITATION; Start 09/01/18 at 15:15; Status Cancel Metoclopramide HCl (Reglan Oral Solution) 2.5 mg TIDACHC PO ; Start 09/01/18 at 16:30; Status Cancel Citalopram Hydrobromide (CeleXA) 20 mg DAILY PO ; Start 09/02/18 at 09:00; Status Cancel Midodrine (Proamatine) 5 mg BID@0900,1700 PO ; Start 09/01/18 at 18:00; Stop 09/01/18 at 18:03; Status DC Ondansetron HCl (Zofran Odt) 4 mg PRN Q8HRS PRN PO NAUSEA/VOMITING Last administered on 09/02/18at 09:43; Start 09/01/18 at 15:30 Non-Formulary Medication (Promethazine Hcl/Codeine (Promethazine-Codeine Syrup)) 10 ml QHS PO ; Start 09/01/18 at 21:00; Status UNV Timolol Maleate (Timoptic 0.5% Ophth) 1 drop DAILY OU ; Start 09/02/18 at 09:00; Status Cancel Calcium Acetate (Phoslo) 667 mg TIDWMEALS PO ; Start 09/01/18 at 17:00; Status Cancel Cinacalcet (Sensipar) 30 mg DAILYWSUP PO Last administered on 09/03/18at 17:58; Start 09/01/18 at 19:00 Dicyclomine HCl (Bentyl) 10 mg QID PRN PO ABD PAIN/CRAMPING Last administered on 09/04/18at 08:35; Start 09/01/18 at 18:15 Senna/Docusate Sodium (Senna Plus) 1 tab PRN DAILY PRN PO CONSTIPATION, 2ND CHOICE; Start 09/01/18 at 18:15 Sevelamer Carbonate (Renvela) 800 mg TIDWMEALS PO Last administered on 09/04at 07:53; Start 09/02/18 at 08:00 Tamsulosin HCl (Flomax) 0.4 mg DAILYWSUP PO Last administered on 09/03/18at 17:58; Start 09/01/18 at 19:00 Cyclobenzaprine HCl (Flexeril) 5 mg PRN Q8HRS PRN PO MUSCLE SPASMS Last administered on 09/04/18at 10:56; Start 09/01/18 at 18:30 Polyethylene Glycol (miraLAX PACKET) 17 gm PRN DAILY PRN PO CONSTIPATION, 1ST CHOICE; Start 09/02/18 at 09:00 Ceftriaxone Sodium (Rocephin) 1 gm Q24H IVP Last administered on 09/02/18at 09:27; Start 09/02/18 at 09:00; Stop 09/02/18 at 11:32; Status DC Tramadol HCl (Ultram) 50 mg PRN Q6HRS PRN PO MILD PAIN Last administered on 09/04/18 05:22; Start 09/01/18 at 22:30 Ondansetron HCl (Zofran) 4 mg PRN Q6HRS PRN IV NAUSEA/VOMITING; Start 09/02/18 at 09:45 Acetaminophen/ Hydrocodone Bitart (Lortab 5/325) 1 tab PRN Q8HRS PRN PO MODERATE PAIN Last administered on 09/04/18at 10:58; Start 09/02/18 at 09:45; Stop 09/04/18 at 11:23; Status DC Piperacillin Sod/ Tazobactam Sod 2.25 gm/Sodium Chloride 50 ml @ 100 mls/hr Q8HRS IV Last administered on 09/04/18 05:22; Start 09/02/18 at 14:00 Lactobacillus Rhamnosus (Culturelle) 1 cap BID PO Last administered on 09/04/18 08:35; Start 09/02/18 at 21:00 Fentanyl Citrate (Fentanyl 2ml Vial) 50 mcg PRN Q2HR PRN IV SEVERE PAIN Last administered on 09/03/18at 11:31; Start 09/02/18 at 12:45 Lidocaine (Lidoderm) 1 patch DAILY TD Last administered on 09/03/18at 18:06; Start 09/02/18 at 12:45 Miscellaneous (Lidoderm Patch Removal) 1 ea QHS MC ; Start 09/02/18 at 21:00 Darbepoetin Vimal (Aranesp) 60 mcg WEEKLYHS SQ Last administered on 09/02/18at 20:31; Start 09/02/18 at 21:00 Sodium Chloride 1,000 ml @ 1,000 mls/hr Q1H PRN IV hypotension; Start 09/03/18 at 13:00; Stop 09/03/18 at 19:00; Status DC Albumin Human 200 ml @ 200 mls/hr 1X PRN PRN IV Hypotension; Start 09/03/18 at 13:15; Stop 09/03/18 at 19:14; Status DC Acetaminophen (Tylenol) 500 mg 1X PRN PRN PO MILD PAIN / TEMP; Start 09/03/18 at 13:15; Stop 09/04/18 at 13:14 Diphenhydramine HCl (Benadryl) 25 mg 1X PRN PRN IV ITCHING; Start 09/03/18 at 13:15; Stop 09/04/18 at 13:14 Diphenhydramine HCl (Benadryl) 25 mg 1X PRN PRN IV ITCHING; Start 09/03/18 at 13:15; Stop 09/04/18 at 13:14 Info (PHARMACY MONITORING -- do not chart) 1 each PRN DAILY PRN MC SEE COMMENTS; Start 09/03/18 at 13:15 Heparin Sodium (Porcine) (Heparin Sodium) 2,500 unit 1X ONCE INT CAT ; Start 09/03/18 at 15:00; Stop 09/03/18 at 15:01; Status DC Acetaminophen/ Hydrocodone Bitart (Lortab 5/325) 1 tab PRN Q6HRS PRN PO MODERATE PAIN; Start 09/04/18 at 11:30; Status UNV Active Scripts Active Lidocaine 1 Each Adh..patch 1 Patch TD DAILY MDD 1 Reported Tramadol Hcl 50 Mg Tablet 50 Mg PO PRN Q8HRS PRN Flomax (Tamsulosin Hcl) 0.4 Mg Cap.er.24h 1 Cap PO DAILYWSUP Viagra (Sildenafil Citrate) 100 Mg Tablet 1 Tab PO PRN DAILY PRN Sensipar (Cinacalcet Hcl) 30 Mg Tablet 1 Tab PO DAILYWSUP Senna-Docusate Sodium Tablet (Sennosides/Docusate Sodium) 1 Each Tablet 1 Each PO PRN DAILY PRN Renvela (Sevelamer Carbonate) 800 Mg Tablet 1 Tab PO TIDWMEALS Polyethylene Glycol 3350 2,500 Gm Powder 17 Gm PO DAILY PRN Hydrocodone-Apap 5-325 (Hydrocodone Bit/Acetaminophen) 1 Tab Tablet 1 Tab PO PRN Q8HRS PRN Dicyclomine Hcl 10 Mg Capsule 10 Mg PO QID PRN Cyclobenzaprine Hcl 5 Mg Tablet 1 Tab PO TID PRN Vitals/I & O Vital Sign - Last 24 Hours 09/03/18 09/03/18 09/03/18 09/03/18 11:31 11:32 12:01 12:32 Resp 22 22 20 20 O2 Delivery Room Air Room Air Room Air 09/03/18 09/03/18 09/03/18 09/03/18 15:00 19:10 19:30 20:00 Temp 97.3 97.3 Pulse 61 Resp 18 B/P (MAP) 113/45 (67) 110/54 (72) Pulse Ox 100 O2 Delivery Room Air Nasal Cannula Room Air O2 Flow Rate 1.0 09/03/18 09/03/18 09/04/18 09/04/18 22:11 23:46 03:11 03:15 Temp 97.2 98.1 97.2 98.1 Pulse 57 68 Resp 16 18 B/P (MAP) 102/53 (69) 89/43 (58) Pulse Ox 100 98 O2 Delivery Room Air Nasal Cannula Room Air Nasal Cannula O2 Flow Rate 1.0 1.0 09/04/18 09/04/18 09/04/18 09/04/18 04:11 05:22 06:23 07:00 Temp 97.6 97.6 Pulse 61 Resp 16 B/P (MAP) 107/59 (75) Pulse Ox 99 O2 Delivery Room Air Room Air Room Air Nasal Cannula O2 Flow Rate 1.0 09/04/18 09/04/18 09/04/18 08:00 08:09 10:58 Temp 97.6 97.6 Pulse 61 Resp 16 18 B/P (MAP) 107/59 (75) Pulse Ox 99 O2 Delivery Room Air Nasal Cannula Room Air O2 Flow Rate 1.0 Intake and Output 09/03/18 09/03/18 09/04/18 15:00 23:00 07:00 Intake Total 200 ml 1200 ml 1000 ml Balance 200 ml 1200 ml 1000 ml IRENA REYNOLDS MD September 04, 2018 11:25
--- NOTE | 2018-09-04 12:03 | PDOC ---
Infectious Disease Note Subjective Subjective Comfortable, no complaints/concerns at this time Remains afrebile Denies N/V/D Vital Sign Vital Signs Vital Signs Date Time Temp Pulse Resp B/P (MAP) Pulse Ox O2 Delivery O2 Flow Rate FiO2 09/04/18 11:53 97.8 69 16 113/56 (75) 100 Nasal Cannula 1.0 97.8 Physical Exam PHYSICAL EXAM GENERAL: Sleeping, arouse to name HEENT: Oral mucosa moist. NECK: Supple. LUNGS: Clear bilaterally, no wheezing. HEART: S1, S2, no murmurs, no rubs. ABDOMEN: Soft, obese. Bowel sounds present. No rebound, no guarding. DERMATOLOGIC: Warm, dry, no generalized rash. Multiple scars well healed. EXT: No gross masha. RUE-AV fistula unremarkable NEUROLOGIC: Responds appropriately Labs Lab Laboratory Tests Test 09/03/18 17:41 09/03/18 19:41 09/04/18 07:40 09/04/18 11:25 Glucose (Fingerstick) 99 mg/dL (70-99) 140 mg/dL (70-99) 84 mg/dL (70-99) 90 mg/dL (70-99) Micro 09/01/18 Blood Culture - Preliminary, Resulted NO GROWTH AFTER 2 DAYS URINE CULTURE RES 1 Preliminary Gram negative rods 50,000-100,000 colony forming units per mL Objective Assessment Fever, resolved Urinary tract infection. UC GNR Prostate enlargement. Urinary bladder thickening. End-stage renal disease, on hemodialysis. Bilateral hydronephrosis Plan Plan of Care Hold discharge Continue Zosyn Awaiting ID/susceptibilities GNR Patient seen and examined. Chart reviewed in detail. Case discussed with T[employer]NEL [employer]ER. Agree with above plan. FREDY PEREZ APRN September 04, 2018 12:03 BUFFY BANERJEE MD September 04, 2018 18:51
[2018-09-04] MEDS: CINACALCET HCL 30 MG TABLET PO SCH (16:56)
[2018-09-04] MEDS: TAMSULOSIN 0.4 MG CAP.ER.24H. PO SCH (16:56)
[2018-09-04] MEDS: PATCH REMOVAL. MC SCH (21:00)
[2018-09-05 03:15] VITALS: BP 121/46
[2018-09-05] MEDS: HYDROcodone/APAP 5/325MG 1 TAB TABLET PO PRN ×2 (05:00→14:59)
[2018-09-05] MEDS: PIPERACILLIN/TAZOBACTAM 2.25 GM in IV NORMAL SALINE 50ML 50 ML IV SCH (05:01)
[2018-09-05] MEDS: traMADol 50 MG TABLET PO PRN (06:09)
[2018-09-05 07:00] VITALS: BP 105/52
[2018-09-05] MEDS: LACTOBACILLUS RHAMNOSUS GG 1 CAPSULE. PO SCH (08:58)
[2018-09-05] MEDS: SEVELAMER CARBONATE 800 MG TABLET. PO SCH ×2 (08:58→12:23)
[2018-09-05] MEDS: LIDOCAINE (700MG/PATCH) PATCH. TD SCH (08:59)
[2018-09-05] MEDS ORDERED: SILD100T PO (09:38)
[2018-09-05] MEDS ORDERED: SEVE800T9 PO (09:38)
[2018-09-05] MEDS ORDERED: SENN1TAB99 PO (09:38)
[2018-09-05] MEDS ORDERED: CINA30TA2 PO (09:38)
[2018-09-05] MEDS ORDERED: DICY10CA3 PO (09:38)
[2018-09-05] MEDS ORDERED: TRAM50TA PO (09:38)
[2018-09-05] MEDS ORDERED: TAMS0.4C97 PO (09:38)
[2018-09-05] MEDS ORDERED: AMOX500T PO (09:38)
[2018-09-05 10:30] LABS: BASO % 1 % (0-3); EOS # 0.3 x10^3/uL (0.0-0.7); EOS % 6 % (0-3); HEMATOCRIT 26.7 % (39.0-53.0); HEMOGLOBIN 8.2 g/dL (13.0-17.5); LYMPH # 1.4 x10^3/uL (1.0-4.8); LYMPH % 27 % (24-48); MEAN CORPUSCULAR HEMOGLOBIN 23 pg (25-35); MEAN CORPUSCULAR HGB CONC 31 g/dL (31-37); MEAN CORPUSCULAR VOLUME 74 fL (79-100); MONO # 0.3 x10^3/uL (0.0-1.1); MONO % 6 % (0-9); NEUT # 3.2 x10^3uL (1.8-7.7); NEUT % 60 % (31-73); PLATELET COUNT 147 x10^3/uL (140-400); RED BLOOD COUNT 3.58 x10^6/uL (4.30-5.70); RED CELL DISTRIBUTION WIDTH 18.6 % (11.5-14.5); WHITE BLOOD COUNT 5.2 x10^3/uL (4.0-11.0)
[2018-09-05 10:39] LABS: ALBUMIN 2.4 g/dL (3.4-5.0); CALCIUM 8.3 mg/dL (8.5-10.1); CREATININE 12.3 mg/dL (0.7-1.3); GFR 5.2; PHOSPHORUS 4.7 mg/dL (2.6-4.7); POTASSIUM 5.4 mmol/L (3.5-5.1)
[2018-09-05 11:00] VITALS: BP 119/54
--- NOTE | 2018-09-05 11:32 | PDOC ---
Infectious Disease Note Subjective Subjective Comfortable, Makes little urine Remains afebrile Denies N/V/D ROS ROS per HPI Vital Sign Vital Signs Vital Signs Date Time Temp Pulse Resp B/P (MAP) Pulse Ox O2 Delivery O2 Flow Rate FiO2 09/05/18 11:00 97.5 60 18 119/54 (75) 100 Room Air 97.5 09/05/18 07:00 1.0 Physical Exam PHYSICAL EXAM GENERAL: Sleeping, arouse to name HEENT: Oral mucosa moist. NECK: Supple. LUNGS: Clear bilaterally, no wheezing. HEART: S1, S2, no murmurs, no rubs. ABDOMEN: Soft, obese. Bowel sounds present. No rebound, no guarding. DERMATOLOGIC: Warm, dry, no generalized rash. Multiple scars well healed. EXT: No gross edema. RUE-AV fistula unremarkable NEUROLOGIC: Responds appropriately Left EJ Labs Lab Laboratory Tests Test 09/04/18 16:50 09/04/18 20:26 09/05/18 07:03 09/05/18 09:45 Glucose (Fingerstick) 77 mg/dL (70-99) 80 mg/dL (70-99) 89 mg/dL (70-99) White Blood Count 5.2 x10^3/uL (4.0-11.0) Red Blood Count 3.58 x10^6/uL (4.30-5.70) Hemoglobin 8.2 g/dL (13.0-17.5) Hematocrit 26.7 % (39.0-53.0) Mean Corpuscular Volume 74 fL (79-100) Mean Corpuscular Hemoglobin 23 pg (25-35) Mean Corpuscular Hemoglobin Concent 31 g/dL (31-37) Red Cell Distribution Width 18.6 % (11.5-14.5) Platelet Count 147 x10^3/uL (140-400) Neutrophils (%) (Auto) 60 % (31-73) Lymphocytes (%) (Auto) 27 % (24-48) Monocytes (%) (Auto) 6 % (0-9) Eosinophils (%) (Auto) 6 % (0-3) Basophils (%) (Auto) 1 % (0-3) Neutrophils # (Auto) 3.2 x10^3uL (1.8-7.7) Lymphocytes # (Auto) 1.4 x10^3/uL (1.0-4.8) Monocytes # (Auto) 0.3 x10^3/uL (0.0-1.1) Eosinophils # (Auto) 0.3 x10^3/uL (0.0-0.7) Basophils # (Auto) 0.0 x10^3/uL (0.0-0.2) Sodium Level 140 mmol/L (136-145) Potassium Level 5.4 mmol/L (3.5-5.1) Chloride Level 103 mmol/L (98-107) Carbon Dioxide Level 27 mmol/L (21-32) Anion Gap 10 (6-14) Blood Urea Nitrogen 69 mg/dL (8-26) Creatinine 12.3 mg/dL (0.7-1.3) Estimated GFR (Cockcroft-Gault) 5.2 Glucose Level 102 mg/dL (70-99) Calcium Level 8.3 mg/dL (8.5-10.1) Phosphorus Level 4.7 mg/dL (2.6-4.7) Albumin 2.4 g/dL (3.4-5.0) Micro 09/01/18 Blood Culture - Preliminary, Resulted NO GROWTH AFTER 4 DAYS URINE CULTURE RES 1 Final Escherichia coli MICS are expressed in micrograms per mL Antibiotic RSLT#1 Amoxicillin/Clavulanic Acid S<=2 Ampicillin S<=2 Cefepime S<=0.12 Ceftriaxone S<=0.25 Cefuroxime S =4 Ciprofloxacin S<=0.25 Ertapenem S<=0.12 Gentamicin S<=1 Imipenem S<=0.25 Levofloxacin S<=0.12 Meropenem S<=0.25 Nitrofurantoin S =32 Piperacillin/Tazobactam S<=4 Tetracycline S<=1 Tobramycin S<=1 Trimethoprim/Sulfa S<=20 Objective Assessment Fever, resolved Urinary tract infection. UC E. coli pansensitive Prostate enlargement. PSA 6.21 Urinary bladder thickening. End-stage renal disease, on hemodialysis. Bilateral hydronephrosis Plan Plan of Care Zosyn,,,wean po soon - Rocephin times one now Home with Cipro for 25 doses to cover potential prostatitis to start 09/06 Anticipating discharge Will need cysto outpatient per urology Dr. Dr. Deep younger Reviewed risks of Cipro including tendon rupture/aortic aneurysms/C-diff s/s - he understands and accepts risks Can F/u 2 weeks in ID office D/w nursing Attending Co-Sign Attending Co-Sign The patient was seen and interviewed as well as examined at the bedside. The chart was reviewed. The case was discussed. Agree with the plan of care. FREDY PEREZ APRN September 05, 2018 11:32 RYANN MALIN MD September 05, 2018 15:10
[2018-09-05] MEDS ORDERED: cefTRIAXone IV Push 2 GM VIAL. IVP ONE (14:30)
[2018-09-05 14:42] VITALS: BP 124/56
--- NOTE | 2018-09-05 16:00 | NUR ---
Paged Dr. Reynolds at 1330, clarified if patient can be discharged. Call back received, patient ok to go home, resume hemodialysis tomorrow as scheduled.
--- NOTE | 2018-09-05 16:02 | NUR ---
Dr. Miller rounded the patient this afternoon, antibiotic upon discharge changed to ciprofloxacin PO.
--- NOTE | 2018-09-05 16:30 | NUR ---
Discharge Note: BEHZAD NGUYEN Discharge instructions and discharge home medications reviewed with patient and a copy given. All questions have been answered and understanding verbalized. The following instructions and handouts were given: Chronic renal insufficiency handout FF up with [facility] Sep 23 944 FF up with PCP Hemodialysis tomorrow as scheduled Prescriptions given: Ciprofloxacin, Tramadol, Lidocaine patch, Sennoside-docusate, Renvela, Dicyclomine,Sensipar,Viagra, Flomax. Discontinued lines and drains: peripheral IV intact, Patient tolerated removal, no complications noted. Patient discharged to home via wheelchair accompanied by friend at 1555.
--- NOTE | 2018-09-20 14:58 | PDOC3 ---
Discharge Summary Visit Information Date of Admission: September 01, 2018 Date of Discharge: September 05, 2018 Admitting Diagnosis: fever Final Diagnosis Fever GNR UTI prostate enlargement Thrombocytopenia ESRD on dialysis TTH S - missed session Anemia of ESRD Problems Medical Problems: (1) Abdominal pain Status: Acute (2) ESRD (end stage renal disease) Status: Acute (3) UTI (urinary tract infection) Status: Acute Brief Hospital Course Allergies Allergies Coded Allergies Type Severity Reaction Last Updated Verified No Known Drug Allergies 08/16/14 No Brief Hospital Course Mr. Palacios is a 53 old male with fever at dialysis center of 100.2, d ysuria, generalized abdominal pain, White count was normal. UA showed large blood, negative nitrite and leukocyte esterase moderate, wbc's too numerous to count. ID consult, IV abx, Some lower abdominal discomfort- had prior cysto, did not followup with uro f/u HD t, r, sa Discharge Information Follow Up: Weeks Disposition/Orders: D/C to Home Scheduled Amoxicillin (Amoxicillin) 500 Mg Tablet, 1 TAB PO DAILY for prostatitis, #24 Prescribed by: FRITZ BANGURA on 09/05/18 0938 Cinacalcet Hcl (Sensipar) 30 Mg Tablet, 1 TAB PO DAILYWSUP for ESRD, #30 Ref 3 Prescribed by: FRITZ BANGURA on 09/05/18 0938 Lidocaine (Lidocaine) 1 Each Adh..patch, 1 PATCH TD DAILY for msk pain MDD 1, #10 Prescribed by: IRENA REYNOLDS on 09/03/18 0951 Sevelamer Carbonate (Renvela) 800 Mg Tablet, 1 TAB PO TIDWMEALS for ESRD, #270 Ref 3 Prescribed by: FRITZ BANGURA on 09/05/18 0938 Tamsulosin Hcl (Flomax) 0.4 Mg Cap.er.24h, 1 CAP PO DAILYWSUP for BPH, #30 Ref 11 Prescribed by: FRITZ BANGURA on 09/05/18 0938 Scheduled PRN Cyclobenzaprine Hcl (Cyclobenzaprine Hcl) 5 Mg Tablet, 1 TAB PO TID PRN for MUSCLE SPASMS, #30 (Reported) Entered as Reported by: Casey Klein on 09/01/181816 Last Action: Converted on 09/01/181819 by Casey Klein Dicyclomine Hcl (Dicyclomine Hcl) 10 Mg Capsule, 10 MG PO QID PRN for cramping, #40 Prescribed by: FRITZ BANGURA on 09/05/18937 Polyethylene Glycol 3350 (Polyethylene Glycol 3350) 2,500 Gm Powder, 17 GM PO DAILY PRN for CONSTIPATION, #527 Ref 11 (Reported) Entered as Reported by: Casey Klein on 09/01/181816 Last Action: Converted on 09/01/181819 by Casey Klein Sennosides/Docusate Sodium (Senna-Docusate Sodium Tablet) 1 Each Tablet, 1 EACH PO PRN DAILY PRN for CONSTIPATION, #60 Prescribed by: FRITZ BANGURA on 09/05/18937 Sildenafil Citrate (Viagra) 100 Mg Tablet, 1 TAB PO PRN DAILY PRN for erectile dysfunction, #6 Prescribed by: FRITZ BANGURA on 09/05/18937 Tramadol Hcl (Tramadol Hcl) 50 Mg Tablet, 50 MG PO PRN Q8HRS PRN for PAIN, #30 Prescribed by: FRITZ BANGURA on 09/05/18937 Patient Instructions Patient Instructions > 30 min FRITZ BANGURA MD September 20, 2018 14:58
== END 2018-09-05 15:55 | disposition home or self-care (01) | DRG 689 ==
LOC: ER 06:51 → 6 SOUTH 11:18
PROVIDERS: ADMIT Family Medicine; ATTEND Family Medicine
PROC: 5A1D70Z Performance of Urinary Filtration, Intermittent, Less than 6 Hours Per Day (ICD-10-PCS; principal; 2018-09-03)
DX: N13.6 Pyonephrosis (principal); E43 Unspecified severe protein-calorie malnutrition; I12.0 Hypertensive chronic kidney disease with stage 5 chronic kidney disease or end stage renal disease; N18.6 End stage renal disease; D63.1 Anemia in chronic kidney disease; D69.6 Thrombocytopenia, unspecified; E11.22 Type 2 diabetes mellitus with diabetic chronic kidney disease; N40.0 Benign prostatic hyperplasia without lower urinary tract symptoms; E21.3 Hyperparathyroidism, unspecified; E11.40 Type 2 diabetes mellitus with diabetic neuropathy, unspecified; N32.9 Bladder disorder, unspecified; M10.9 Gout, unspecified; G89.29 Other chronic pain; B96.20 Unspecified Escherichia coli [E. coli] as the cause of diseases classified elsewhere; Z99.2 Dependence on renal dialysis; Z82.49 Family history of ischemic heart disease and other diseases of the circulatory system; Z90.49 Acquired absence of other specified parts of digestive tract; Z79.899 Other long term (current) drug therapy; Z81.1 Family history of alcohol abuse and dependence; Z79.84 Long term (current) use of oral hypoglycemic drugs
CPT/HCPCS: 36415; 71045; 74176; 80048; 80053; 80069; 81001; 82553; 82962; 83605; 83690; 84484; 85025; 85027; 85610; 85730; 87040; 87086; 87186; 93005; 96361; 96374; G0103; J0696; J0881; J2543; J3010; J7030; Q0162; 99285-25

== ENCOUNTER → 2018-09-16 | Outpatient (CLI) | payer OTHER ==
[2018-09-05 14:42] VITALS: BP 124/56
[~2018-09-16] MED LIST changes: +AMOX500T PO; +CINA30TA2 PO; +CYCL5TAB PO; +DICY10CA3 PO; +HYDR-2761 PO; +LIDO700A39 TD; +POLY2500 PO; +SENN1TAB99 PO; +SEVE800T9 PO; +SILD100T PO; +TAMS0.4C97 PO; +TRAM50TA PO
--- NOTE | 2018-09-16 13:14 | RAD ---
Bilateral lower extremity arterial ultrasound, 09/16/2018: HISTORY: Peripheral vascular disease with bilateral calf claudication Duplex evaluation of the major arteries in both lower extremities was performed including grayscale, color-flow and spectral Doppler analysis. There are mild to moderate scattered arterial plaques bilaterally, with considerable arterial calcification. The right common femoral, superficial femoral and popliteal Doppler waveforms are triphasic. No significant focal velocity acceleration is seen in those regions to suggest high-grade stenosis. Patent posterior tibial and peroneal arteries are present in the right calf demonstrating predominantly biphasic Doppler waveforms. The anterior tibial artery is patent demonstrating monophasic Doppler waveform. The right dorsalis pedis Doppler waveform is monophasic with a good systolic upstroke. There is a high velocity in the right dorsalis pedis artery of 221 cm/s. On the left, the common femoral, superficial femoral and popliteal Doppler waveforms are triphasic. No significant focal velocity acceleration is seen in those vessels to suggest high-grade stenosis. The left peroneal artery is patent demonstrating a biphasic Doppler waveform. The left posterior tibial artery is patent demonstrating a triphasic Doppler waveforms distally. The left anterior tibial artery is patent demonstrating a monophasic Doppler waveform. There is a mild velocity acceleration the left anterior tibial artery up to 160 cm/s. The color imaging did not demonstrate high-grade focal stenosis. The left dorsalis pedis artery demonstrates a monophasic Doppler waveform with a good systolic upstroke. IMPRESSION: 1. Moderate arterial calcifications and scattered atherosclerotic plaquing. 2. No duplex evidence of significant aortoiliac inflow disease or high-grade femoral-popliteal stenosis. 3. Mild degradation of the distal anterior tibial and dorsalis pedis Doppler waveforms. Electronically signed by: Rl Cooper MD (09/16/2018 1:11 PM) [facility]
== END | disposition home or self-care (01) ==
LOC: US 11:00
PROVIDERS: ATTEND Podiatrist Foot & Ankle Surgery
DX: E11.51 Type 2 diabetes mellitus with diabetic peripheral angiopathy without gangrene (principal); I70.203 Unspecified atherosclerosis of native arteries of extremities, bilateral legs
CPT/HCPCS: 93923

== ENCOUNTER 2018-11-11 16:14 | Inpatient (IN) | payer OTHER ==
[~2018-11-11] VITALS: Ht 182.9 cm; Wt 120.4 kg
[2018-11-11] MEDS: SENNOSIDES 8.6 MG TABLET PO SCH (09:00)
[~2018-11-11 16:14] MED LIST changes: +AMLO5TAB10 PO; +LIDO700A21 TD; -LIDO700A39 TD; +POLY17PO29 PO; +SENN-80 PO; +[UNRECOGNIZED DRUG - CODE] PO
[2018-11-11 17:07] LABS: BASO % 1 % (0-3); EOS # 0.3 x10^3/uL (0.0-0.7); EOS % 6 % (0-3); HEMATOCRIT 35.5 % (39.0-53.0); HEMOGLOBIN 11.3 g/dL (13.0-17.5); LYMPH # 1.5 x10^3/uL (1.0-4.8); LYMPH % 26 % (24-48); MEAN CORPUSCULAR HEMOGLOBIN 24 pg (25-35); MEAN CORPUSCULAR HGB CONC 32 g/dL (31-37); MEAN CORPUSCULAR VOLUME 76 fL (79-100); MONO # 0.6 x10^3/uL (0.0-1.1); MONO % 10 % (0-9); NEUT # 3.2 x10^3/uL (1.8-7.7); NEUT % 57 % (31-73); PLATELET COUNT 64 x10^3/uL (140-400); WHITE BLOOD COUNT 5.6 x10^3/uL (4.0-11.0)
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
[2018-11-11 17:16] LABS: PROTHROMBIN TIME PATIENT 13.3 SEC (11.7-14.0)
[2018-11-11 17:25] LABS: ALBUMIN 3.6 g/dL (3.4-5.0); ALBUMIN/GLOBULIN RATIO 0.8 (1.0-1.7); CREATININE 18.5 mg/dL (0.7-1.3); GFR 3.2; MAGNESIUM 2.9 mg/dL (1.8-2.4); TOTAL BILIRUBIN 0.4 mg/dL (0.2-1.0)
[2018-11-11 17:34] LABS: POTASSIUM 6.8 mmol/L (3.5-5.1)
[2018-11-11 17:36] LABS: ANISOCYTOSIS SLIGHT; HYPOCHROMIA SLIGHT; PLT ESTIMATE DECREASED (ADEQUATE)
[2018-11-11 17:37] LABS: MICROCYTOSIS SLIGHT; SCHISTOCYTES FEW
[2018-11-11 17:38] LABS: TARGET CELLS OCC
[2018-11-11] MEDS ORDERED: ACETAMINOPHEN 500 MG TABLET PO PRN (18:00)
[2018-11-11] MEDS ORDERED: ONDANSETRON PF 4 MG/2 ML VIAL. IV PRN (18:00)
[2018-11-11] MEDS ORDERED: ACETAMINOPHEN/CODEINE 300/30MG TABLET. PO PRN (18:00)
[2018-11-11] MEDS ORDERED: TEMAZEPAM 7.5 MG CAPSULE PO PRN (18:00)
[2018-11-11] MEDS ORDERED: guaiFENesin/CODEINE 100mg/10mg 5 ML LIQUID PO PRN (18:15)
[2018-11-11] MEDS ORDERED: INSULIN REGULAR 100 UNIT/ML 3ML VIAL. IV ONE (18:15)
[2018-11-11] MEDS ORDERED: ALBUTEROL SULFATE 2.5 MG/3 ML NEBU. CONT NEB ONE (18:15)
[2018-11-11] MEDS ORDERED: DEXTROSE 50% 25 GM / 50ML DISP.SYRIN. IV ONE (18:15)
--- NOTE | 2018-11-11 18:22 | PDOC1 ---
History and Physical Date of Admission Date of Admission DATE: 11/11/18 TIME: 18:18 Identification/Chief Complaint Chief Complaint Confusion, missed dialysis for 1 week-brought by ex Source Source: Caregiver, Chart review, Patient History of Present Illness History of Present Illness 53-year-old -[place] male brought in by ex- because confused, missed dialysis for one weeks worth. He cannot tell me the reason why, transportation picks him up for HD. He has a right AV fistula. Has been on dialysis since 2010 for diabetes. Not on any diabetic meds anymore Creatinine 18.5 with potassium 6.8, sodium 138 with good CBC except for platelets 64 with MCV 75. No bleeding but constipated for 3 days but now just moved a BM at ER. Got temporizing measures for hyperkalemia from ER. We will admit with stat call out to renal if needs dialysis today or maybe tomorrow He is now oriented, initially he was not oriented to place or time Past Medical History Cardiovascular: HTN GI: Constipation Heme/Onc: Anemia NOS Renal/: Chronic renal failure Endocrine: Diabetes, Hyperparathyroidism Past Surgical History Past Surgical History: Other (R AV fistuula arm) Family History Family History: Alcohol Abuse, Drug Abuse, Hypertension Social History Smoke: No ALCOHOL: none Drugs: None, Other Current Problem List Problem List Problems Medical Problems: (1) Anemia Status: Acute (2) ESRD (end stage renal disease) Status: Acute (3) Hypermagnesemia Status: Acute (4) Missed dialysis Status: Acute (5) Shortness of breath Status: Acute Current Medications Current Medications Current Medications Albuterol Sulfate (Ventolin Neb Soln) 10 mg 1X ONCE CONT NEB ; Start 11/11/18 at 18:15; Stop 11/11/18 at 18:16; Status DC Dextrose (Dextrose 50%-Water Syringe) 25 gm 1X ONCE IV ; Start 11/11/18 at 18:15; Stop 11/11/18 at 18:16; Status DC Insulin Human Regular (HumuLIN R VIAL) 10 unit 1X ONCE IV ; Start 11/11/18 at 18:15; Stop 11/11/18 at 18:16; Status DC Ondansetron HCl (Zofran) 4 mg PRN Q6HRS PRN IV NAUSEA/VOMITING; Start 11/11/18 at 18:00 Acetaminophen (Tylenol) 500 mg PRN Q6HRS PRN PO HEADACHE / TEMP; Start 11/11/18 at 18:00 Acetaminophen/ Codeine Phosphate (Tylenol #3) 1 tab PRN Q6HRS PRN PO MILD PAIN 1-3; Start 11/11/18 at 18:00 Temazepam (Restoril) 7.5 mg PRN QHS PRN PO INSOMNIA; Start 11/11/18 at 18:00 Albuterol Sulfate (Ventolin Neb Soln) 2.5 mg PRN Q4HRS PRN NEB SHORTNESS OF BREATH; Start 11/11/18 at 18:00 Amlodipine Besylate (Norvasc) 5 mg DAILY PO ; Start 11/12/18 at 09:00 Cinacalcet (Sensipar) 30 mg DAILYWSUP PO ; Start 11/11/18 at 18:00 Dicyclomine HCl (Bentyl) 10 mg PRN QID PRN PO cramping; Start 11/11/18 at 18:00 Acetaminophen/ Hydrocodone Bitart (Lortab 5/325) 1 tab PRN Q6HRS PRN PO MODERATE PAIN; Start 11/11/18 at 18:00 Sevelamer Carbonate (Renvela) 2,400 mg TIDWMEALS PO ; Start 11/11/18 at 18:00 Tamsulosin HCl (Flomax) 0.4 mg DAILYWSUP PO ; Start 11/11/18 at 18:00 Cyclobenzaprine HCl (Flexeril) 5 mg PRN TID PRN PO MUSCLE SPASMS; Start 11/11/18 at 18:15 Guaifenesin/ Codeine Phosphate (Robitussin Ac) 5 ml PRN Q6HRS PRN PO COUGH; Start 11/11/18 at 18:15 Polyethylene Glycol (miraLAX PACKET) 17 gm DAILY PO ; Start 11/12/18 at 09:00 Sennosides (Senna) 8.6 mg DAILY PO ; Start 11/11/18 at 09:00 Tramadol HCl (Ultram) 50 mg PRN Q8HRS PRN PO MILD PAIN, 2ND CHOICE; Start 11/11/18 at 18:15 Magnesium Hydroxide (Milk Of Magnesia) 2,400 mg PRN DAILY PRN PO CONSTIPATION; Start 11/11/18 at 18:30; Status UNV Docusate Sodium (Colace) 100 mg DAILY PO ; Start 11/12/18 at 09:00; Status UNV Active Scripts Active Hydrocodone-Guaif 2.5-200 mg/5 (Guaifenesin/Hydrocodone) 118 Ml Solution 2.5 Ml PO PRN BID PRN 6 Days Tramadol Hcl 50 Mg Tablet 50 Mg PO PRN Q8HRS PRN Flomax (Tamsulosin Hcl) 0.4 Mg Cap.er.24h 1 Cap PO DAILYWSUP Viagra (Sildenafil Citrate) 100 Mg Tablet 1 Tab PO PRN DAILY PRN Sensipar (Cinacalcet Hcl) 30 Mg Tablet 1 Tab PO DAILYWSUP Dicyclomine Hcl 10 Mg Capsule 10 Mg PO QID PRN Reported Renvela (Sevelamer Carbonate) 800 Mg Tablet 3 Tab PO TID Senna (Sennosides) 8.6 Mg Tablet 8.6 Mg PO DAILY Miralax (Polyethylene Glycol 3350) 17 Gm Powd.pack 1 Packet PO DAILY Amlodipine Besylate 5 Mg Tablet 5 Mg PO DAILY Hydrocodone-Apap 5-325 (Hydrocodone Bit/Acetaminophen) 1 Tab Tablet 1 Tab PO PRN Q6HRS PRN Cyclobenzaprine Hcl 5 Mg Tablet 1 Tab PO TID PRN Allergies Allergies: Coded Allergies: No Known Drug Allergies (Unverified , 08/16/14) ROS Review of System A 14 point ROS was completed with the following noted as positive: Other systems reviewed and negative. \CONSTITUTIONAL: No fever or chills EYES: No recent changes SKIN: No rash or itching CARDIOVASCULAR: No chest pain, syncope, palpitations, or edema RESPIRATORY: No SOB or cough GASTROINTESTINAL: No nausea, vomiting or abdominal pain NEUROLOGICAL: No headaches or weakness ENDOCRINE: No cold or heat intolerance GENITOURINARY: No urgency or frequency of urination MUSCULOSKELETAL: No back pain or joint pain LYMPHATICS: No enlarged lymph nodes PSYCHIATRIC: No anxiety or depression Physical Exam General: Alert, Oriented X3, Cooperative, No acute distress HEENT: Atraumatic, PERRLA, EOMI Lungs: Clear to auscultation, Normal air movement Heart: S1S2, RRR, no thrills, no rubs, no gallops, no murmurs Cardiovascular: S1, S2 Abdomen: Normal bowel sounds, Soft, No tenderness, No hepatosplenomegaly, No masses Male Genitals Exam: normal genitalia, normal prostate Rectal Exam: not examined Extremities: No cyanosis, Other (right AV fistula with good bruit, palpable pulses distally) Skin: No rashes, No breakdown, No significant lesion Neuro: Normal gait, Normal speech, Strength at 5/5 X4 ext, Normal tone, Sensation intact, Cranial nerves 3-12 NL, Reflexes 2+ Psych/Mental Status: Mental status NL, Mood NL Vitals Vitals Vital Signs Date Time Temp Pulse Resp B/P (MAP) Pulse Ox O2 Delivery O2 Flow Rate FiO2 11/11/18 16:34 97.7 70 18 127/60 (82) 100 Room Air 97.7 Labs Labs Laboratory Tests Test 11/11/18 16:58 White Blood Count 5.6 x10^3/uL (4.0-11.0) Red Blood Count 4.70 x10^6/uL (4.30-5.70) Hemoglobin 11.3 g/dL (13.0-17.5) Hematocrit 35.5 % (39.0-53.0) Mean Corpuscular Volume 76 fL (79-100) Mean Corpuscular Hemoglobin 24 pg (25-35) Mean Corpuscular Hemoglobin Concent 32 g/dL (31-37) Red Cell Distribution Width 18.0 % (11.5-14.5) Platelet Count 64 x10^3/uL (140-400) Neutrophils (%) (Auto) 57 % (31-73) Lymphocytes (%) (Auto) 26 % (24-48) Monocytes (%) (Auto) 10 % (0-9) Eosinophils (%) (Auto) 6 % (0-3) Basophils (%) (Auto) 1 % (0-3) Neutrophils # (Auto) 3.2 x10^3/uL (1.8-7.7) Lymphocytes # (Auto) 1.5 x10^3/uL (1.0-4.8) Monocytes # (Auto) 0.6 x10^3/uL (0.0-1.1) Eosinophils # (Auto) 0.3 x10^3/uL (0.0-0.7) Basophils # (Auto) 0.0 x10^3/uL (0.0-0.2) Platelet Estimate Decreased (ADEQUATE) Hypochromasia Slight Anisocytosis Slight Microcytosis Slight Target Cells Occ Schistocytes Few Prothrombin Time 13.3 SEC (11.7-14.0) Prothromb Time International Ratio 1.0 (0.8-1.1) Sodium Level 138 mmol/L (136-145) Potassium Level 6.8 mmol/L (3.5-5.1) Chloride Level 100 mmol/L (98-107) Carbon Dioxide Level 25 mmol/L (21-32) Anion Gap 13 (6-14) Blood Urea Nitrogen 123 mg/dL (8-26) Creatinine 18.5 mg/dL (0.7-1.3) Estimated GFR (Cockcroft-Gault) 3.2 BUN/Creatinine Ratio 7 (6-20) Glucose Level 80 mg/dL (70-99) Calcium Level 9.0 mg/dL (8.5-10.1) Magnesium Level 2.9 mg/dL (1.8-2.4) Total Bilirubin 0.4 mg/dL (0.2-1.0) Aspartate Amino Transf (AST/SGOT) 21 U/L (15-37) Alanine Aminotransferase (ALT/SGPT) 22 U/L (16-63) Alkaline Phosphatase 108 U/L (46-116) Creatine Kinase 124 U/L (39-308) Creatine Kinase MB (Mass) 2.3 ng/mL (0.0-3.6) Creatine Kinase MB Relative Index 1.9 % (0-4) Troponin I Quantitative < 0.017 ng/mL (0.000-0.055) HP-Pwb-P-Type Natriuretic Peptide 1265 pg/mL (0-124) Total Protein 8.0 g/dL (6.4-8.2) Albumin 3.6 g/dL (3.4-5.0) Albumin/Globulin Ratio 0.8 (1.0-1.7) Lipase 485 U/L (73-393) Laboratory Tests Test 11/11/18 16:58 White Blood Count 5.6 x10^3/uL (4.0-11.0) Red Blood Count 4.70 x10^6/uL (4.30-5.70) Hemoglobin 11.3 g/dL (13.0-17.5) Hematocrit 35.5 % (39.0-53.0) Mean Corpuscular Volume 76 fL (79-100) Mean Corpuscular Hemoglobin 24 pg (25-35) Mean Corpuscular Hemoglobin Concent 32 g/dL (31-37) Red Cell Distribution Width 18.0 % (11.5-14.5) Platelet Count 64 x10^3/uL (140-400) Neutrophils (%) (Auto) 57 % (31-73) Lymphocytes (%) (Auto) 26 % (24-48) Monocytes (%) (Auto) 10 % (0-9) Eosinophils (%) (Auto) 6 % (0-3) Basophils (%) (Auto) 1 % (0-3) Neutrophils # (Auto) 3.2 x10^3/uL (1.8-7.7) Lymphocytes # (Auto) 1.5 x10^3/uL (1.0-4.8) Monocytes # (Auto) 0.6 x10^3/uL (0.0-1.1) Eosinophils # (Auto) 0.3 x10^3/uL (0.0-0.7) Basophils # (Auto) 0.0 x10^3/uL (0.0-0.2) Platelet Estimate Decreased (ADEQUATE) Hypochromasia Slight Anisocytosis Slight Microcytosis Slight Target Cells Occ Schistocytes Few Prothrombin Time 13.3 SEC (11.7-14.0) Prothromb Time International Ratio 1.0 (0.8-1.1) Sodium Level 138 mmol/L (136-145) Potassium Level 6.8 mmol/L (3.5-5.1) Chloride Level 100 mmol/L (98-107) Carbon Dioxide Level 25 mmol/L (21-32) Anion Gap 13 (6-14) Blood Urea Nitrogen 123 mg/dL (8-26) Creatinine 18.5 mg/dL (0.7-1.3) Estimated GFR (Cockcroft-Gault) 3.2 BUN/Creatinine Ratio 7 (6-20) Glucose Level 80 mg/dL (70-99) Calcium Level 9.0 mg/dL (8.5-10.1) Magnesium Level 2.9 mg/dL (1.8-2.4) Total Bilirubin 0.4 mg/dL (0.2-1.0) Aspartate Amino Transf (AST/SGOT) 21 U/L (15-37) Alanine Aminotransferase (ALT/SGPT) 22 U/L (16-63) Alkaline Phosphatase 108 U/L (46-116) Creatine Kinase 124 U/L (39-308) Creatine Kinase MB (Mass) 2.3 ng/mL (0.0-3.6) Creatine Kinase MB Relative Index 1.9 % (0-4) Troponin I Quantitative < 0.017 ng/mL (0.000-0.055) IO-Pel-B-Type Natriuretic Peptide 1265 pg/mL (0-124) Total Protein 8.0 g/dL (6.4-8.2) Albumin 3.6 g/dL (3.4-5.0) Albumin/Globulin Ratio 0.8 (1.0-1.7) Lipase 485 U/L (73-393) VTE Prophylaxis Ordered VTE Prophylaxis Devices: Yes VTE Pharmacological Prophylaxi: Yes Assessment/Plan Assessment/Plan ESRD, missed dialysis 1 week's worth Anemia of ESRD Hyperkalemia S OA Constipation, resolved Thrombocytopenia Microcytic anemia in a dialysis patient Plan: 2 MN Stool regimen, call out to renal re missed HD sessions I have reconciled home meds Add sodium bicarbonate as temporizing measure renal HD diet Recheck potassium 7 PM-he did get insulin and got temporizing measures and had a BM at ER BMP again tomorrow Full code PT OT Compliance emphasized Watch out for bleed-maybe check an iron panel because of that low MCV but anemia is otherwise controlled monitor that thrombocytopenia IRENA REYNOLDS MD Nov 11, 2018 18:22
[2018-11-11] MEDS ORDERED: MAGNESIUM HYDROXIDE 2,400 MG/30 ML ORAL.SUSP. PO PRN (18:30)
[2018-11-11] MEDS ORDERED: SODIUM BICARB ADULT 8.4% 50 MEQ/50 ML DISP.SYRIN. IV ONE (19:00)
[2018-11-11] MEDS ORDERED: IV NORMAL SALINE 1000ML BAG 1,000 ML IV PRN ×2 (19:13)
[2018-11-11] MEDS ORDERED: DIALYSIS PATIENT. MC PRN (19:15)
[2018-11-11] MEDS ORDERED: diphenhydrAMINE 50 MG/ML VIAL IV PRN ×2 (19:15)
[2018-11-11] MEDS: HYDROcodone/APAP 5/325MG 1 TAB TABLET PO PRN (21:41)
[2018-11-11] MEDS: traMADol 50 MG TABLET PO PRN (21:41)
[2018-11-11] MEDS: CINACALCET HCL 30 MG TABLET PO SCH (21:42)
[2018-11-11] MEDS: TAMSULOSIN 0.4 MG CAP.ER.24H. PO SCH (21:42)
[2018-11-11] MEDS: SEVELAMER CARBONATE 800 MG TABLET. PO SCH (21:42)
[2018-11-11] MEDS: ALBUTEROL SULFATE 2.5 MG/3 ML NEBU. NEB PRN (21:49)
[2018-11-11 23:00] VITALS: BP 122/59
[2018-11-12 03:00] VITALS: BP 144/56
[2018-11-12] MEDS: HYDROcodone/APAP 5/325MG 1 TAB TABLET PO PRN ×3 (03:59→20:16)
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
[2018-11-12] MEDS: traMADol 50 MG TABLET PO PRN ×2 (06:02→17:46)
[2018-11-12] MEDS: ALBUTEROL SULFATE 2.5 MG/3 ML NEBU. NEB PRN ×2 (07:10→19:23)
[2018-11-12] MEDS ORDERED: IV NORMAL SALINE 1000ML BAG 1,000 ML IV PRN ×2 (07:24)
[2018-11-12] MEDS ORDERED: DIALYSIS PATIENT. MC PRN ×2 (07:30)
[2018-11-12 07:32] LABS: BASO % 1 % (0-3); EOS # 0.3 x10^3/uL (0.0-0.7); EOS % 7 % (0-3); HEMATOCRIT 37.2 % (39.0-53.0); HEMOGLOBIN 11.9 g/dL (13.0-17.5); LYMPH # 1.5 x10^3/uL (1.0-4.8); LYMPH % 35 % (24-48); MEAN CORPUSCULAR HEMOGLOBIN 24 pg (25-35); MEAN CORPUSCULAR HGB CONC 32 g/dL (31-37); MEAN CORPUSCULAR VOLUME 75 fL (79-100); MONO # 0.3 x10^3/uL (0.0-1.1); MONO % 8 % (0-9); NEUT # 2.1 x10^3/uL (1.8-7.7); NEUT % 49 % (31-73); PLATELET COUNT 49 x10^3/uL (140-400); RED BLOOD COUNT 4.96 x10^6/uL (4.30-5.70); RED CELL DISTRIBUTION WIDTH 18.2 % (11.5-14.5); WHITE BLOOD COUNT 4.2 x10^3/uL (4.0-11.0)
[2018-11-12 07:49] VITALS: BP 127/63
[2018-11-12 07:56] LABS: CALCIUM 8.7 mg/dL (8.5-10.1); CREATININE 15.7 mg/dL (0.7-1.3); GFR 3.9; POTASSIUM 5.1 mmol/L (3.5-5.1)
[2018-11-12] MEDS: SEVELAMER CARBONATE 800 MG TABLET. PO SCH ×3 (08:39→17:40)
[2018-11-12] MEDS: amLODIPine BESYLATE 5 MG TABLET PO SCH (09:00)
--- NOTE | 2018-11-12 10:33 | PDOC ---
PROGRESS NOTES Chief Complaint Chief Complaint ESRD, missed dialysis 1 week's worth Anemia of ESRD Hyperkalemia S OA Constipation, resolved Thrombocytopenia Microcytic anemia in a dialysis patient met ana, back to baseline History of Present Illness History of Present Illness He had stat dialysis last night and is out having dialysis again today His mental status seems to be at baseline now Creatinine/results today noted Plan: dialysis per renal Labs again tomorrow I have reconciled home meds from the ER yesterday Vitals Vitals Vital Signs Date Time Temp Pulse Resp B/P (MAP) Pulse Ox O2 Delivery O2 Flow Rate FiO2 11/12/18 08:00 Room Air 11/12/18 07:49 98.3 76 18 127/63 (84) 98 98.3 Physical Exam General: Alert, Oriented X3, Cooperative, No acute distress Heart: Regular rate, Normal S1, Normal S2 Lungs: Clear Abdomen: Normal bowel sounds, Soft, No tenderness, No hepatosplenomegaly, No masses Extremities: No cyanosis, Other (right AV fistula with good bruit, palpable pulses distally) Skin: No rashes, No breakdown, No significant lesion Labs LABS Laboratory Tests Test 11/11/18 16:58 11/11/18 18:23 11/11/18 20:23 11/11/18 21:40 White Blood Count 5.6 x10^3/uL (4.0-11.0) Red Blood Count 4.70 x10^6/uL (4.30-5.70) Hemoglobin 11.3 g/dL (13.0-17.5) Hematocrit 35.5 % (39.0-53.0) Mean Corpuscular Volume 76 fL (79-100) Mean Corpuscular Hemoglobin 24 pg (25-35) Mean Corpuscular Hemoglobin Concent 32 g/dL (31-37) Red Cell Distribution Width 18.0 % (11.5-14.5) Platelet Count 64 x10^3/uL (140-400) Neutrophils (%) (Auto) 57 % (31-73) Lymphocytes (%) (Auto) 26 % (24-48) Monocytes (%) (Auto) 10 % (0-9) Eosinophils (%) (Auto) 6 % (0-3) Basophils (%) (Auto) 1 % (0-3) Neutrophils # (Auto) 3.2 x10^3/uL (1.8-7.7) Lymphocytes # (Auto) 1.5 x10^3/uL (1.0-4.8) Monocytes # (Auto) 0.6 x10^3/uL (0.0-1.1) Eosinophils # (Auto) 0.3 x10^3/uL (0.0-0.7) Basophils # (Auto) 0.0 x10^3/uL (0.0-0.2) Platelet Estimate Decreased (ADEQUATE) Hypochromasia Slight Anisocytosis Slight Microcytosis Slight Target Cells Occ Schistocytes Few Prothrombin Time 13.3 SEC (11.7-14.0) Prothromb Time International Ratio 1.0 (0.8-1.1) Sodium Level 138 mmol/L (136-145) Potassium Level 6.8 mmol/L (3.5-5.1) Chloride Level 100 mmol/L (98-107) Carbon Dioxide Level 25 mmol/L (21-32) Anion Gap 13 (6-14) Blood Urea Nitrogen 123 mg/dL (8-26) Creatinine 18.5 mg/dL (0.7-1.3) Estimated GFR (Cockcroft-Gault) 3.2 BUN/Creatinine Ratio 7 (6-20) Glucose Level 80 mg/dL (70-99) Calcium Level 9.0 mg/dL (8.5-10.1) Magnesium Level 2.9 mg/dL (1.8-2.4) Iron Level 118 ug/dL (65-175) Total Iron Binding Capacity 201 ug/dL (250-450) Iron Saturation 59 % (15-34) Total Bilirubin 0.4 mg/dL (0.2-1.0) Aspartate Amino Transf (AST/SGOT) 21 U/L (15-37) Alanine Aminotransferase (ALT/SGPT) 22 U/L (16-63) Alkaline Phosphatase 108 U/L (46-116) Creatine Kinase 124 U/L (39-308) Creatine Kinase MB (Mass) 2.3 ng/mL (0.0-3.6) Creatine Kinase MB Relative Index 1.9 % (0-4) Troponin I Quantitative < 0.017 ng/mL (0.000-0.055) SO-Zmp-H-Type Natriuretic Peptide 1265 pg/mL (0-124) Total Protein 8.0 g/dL (6.4-8.2) Albumin 3.6 g/dL (3.4-5.0) Albumin/Globulin Ratio 0.8 (1.0-1.7) Lipase 485 U/L (73-393) Glucose (Fingerstick) 64 mg/dL (70-99) 92 mg/dL (70-99) 90 mg/dL (70-99) Test 11/12/18 07:20 11/12/18 07:37 White Blood Count 4.2 x10^3/uL (4.0-11.0) Red Blood Count 4.96 x10^6/uL (4.30-5.70) Hemoglobin 11.9 g/dL (13.0-17.5) Hematocrit 37.2 % (39.0-53.0) Mean Corpuscular Volume 75 fL (79-100) Mean Corpuscular Hemoglobin 24 pg (25-35) Mean Corpuscular Hemoglobin Concent 32 g/dL (31-37) Red Cell Distribution Width 18.2 % (11.5-14.5) Platelet Count 49 x10^3/uL (140-400) Neutrophils (%) (Auto) 49 % (31-73) Lymphocytes (%) (Auto) 35 % (24-48) Monocytes (%) (Auto) 8 % (0-9) Eosinophils (%) (Auto) 7 % (0-3) Basophils (%) (Auto) 1 % (0-3) Neutrophils # (Auto) 2.1 x10^3/uL (1.8-7.7) Lymphocytes # (Auto) 1.5 x10^3/uL (1.0-4.8) Monocytes # (Auto) 0.3 x10^3/uL (0.0-1.1) Eosinophils # (Auto) 0.3 x10^3/uL (0.0-0.7) Basophils # (Auto) 0.0 x10^3/uL (0.0-0.2) Sodium Level 138 mmol/L (136-145) Potassium Level 5.1 mmol/L (3.5-5.1) Chloride Level 97 mmol/L (98-107) Carbon Dioxide Level 29 mmol/L (21-32) Anion Gap 12 (6-14) Blood Urea Nitrogen 90 mg/dL (8-26) Creatinine 15.7 mg/dL (0.7-1.3) Estimated GFR (Cockcroft-Gault) 3.9 Glucose Level 134 mg/dL (70-99) Calcium Level 8.7 mg/dL (8.5-10.1) Glucose (Fingerstick) 133 mg/dL (70-99) Review of Systems Review of Systems A 14 point ROS was completed with the following noted as positive: Other systems reviewed and negative. \CONSTITUTIONAL: No fever or chills EYES: No recent changes SKIN: No rash or itching CARDIOVASCULAR: No chest pain, syncope, palpitations, or edema RESPIRATORY: No SOB or cough GASTROINTESTINAL: No nausea, vomiting or abdominal pain NEUROLOGICAL: No headaches or weakness ENDOCRINE: No cold or heat intolerance GENITOURINARY: No urgency or frequency of urination MUSCULOSKELETAL: No back pain or joint pain LYMPHATICS: No enlarged lymph nodes PSYCHIATRIC: No anxiety or depression Assessment and Plan Assessmemt and Plan Problems Medical Problems: (1) Anemia Status: Acute (2) ESRD (end stage renal disease) Status: Acute (3) Hypermagnesemia Status: Acute (4) Missed dialysis Status: Acute (5) Shortness of breath Status: Acute Comment Review of Relevant I have reviewed the following items katherine (where applicable) has been applied. Labs Laboratory Tests Test 11/11/18 16:58 11/11/18 18:23 11/11/18 20:23 11/11/18 21:40 White Blood Count 5.6 x10^3/uL (4.0-11.0) Red Blood Count 4.70 x10^6/uL (4.30-5.70) Hemoglobin 11.3 g/dL (13.0-17.5) Hematocrit 35.5 % (39.0-53.0) Mean Corpuscular Volume 76 fL (79-100) Mean Corpuscular Hemoglobin 24 pg (25-35) Mean Corpuscular Hemoglobin Concent 32 g/dL (31-37) Red Cell Distribution Width 18.0 % (11.5-14.5) Platelet Count 64 x10^3/uL (140-400) Neutrophils (%) (Auto) 57 % (31-73) Lymphocytes (%) (Auto) 26 % (24-48) Monocytes (%) (Auto) 10 % (0-9) Eosinophils (%) (Auto) 6 % (0-3) Basophils (%) (Auto) 1 % (0-3) Neutrophils # (Auto) 3.2 x10^3/uL (1.8-7.7) Lymphocytes # (Auto) 1.5 x10^3/uL (1.0-4.8) Monocytes # (Auto) 0.6 x10^3/uL (0.0-1.1) Eosinophils # (Auto) 0.3 x10^3/uL (0.0-0.7) Basophils # (Auto) 0.0 x10^3/uL (0.0-0.2) Platelet Estimate Decreased (ADEQUATE) Hypochromasia Slight Anisocytosis Slight Microcytosis Slight Target Cells Occ Schistocytes Few Prothrombin Time 13.3 SEC (11.7-14.0) Prothromb Time International Ratio 1.0 (0.8-1.1) Sodium Level 138 mmol/L (136-145) Potassium Level 6.8 mmol/L (3.5-5.1) Chloride Level 100 mmol/L (98-107) Carbon Dioxide Level 25 mmol/L (21-32) Anion Gap 13 (6-14) Blood Urea Nitrogen 123 mg/dL (8-26) Creatinine 18.5 mg/dL (0.7-1.3) Estimated GFR (Cockcroft-Gault) 3.2 BUN/Creatinine Ratio 7 (6-20) Glucose Level 80 mg/dL (70-99) Calcium Level 9.0 mg/dL (8.5-10.1) Magnesium Level 2.9 mg/dL (1.8-2.4) Iron Level 118 ug/dL (65-175) Total Iron Binding Capacity 201 ug/dL (250-450) Iron Saturation 59 % (15-34) Total Bilirubin 0.4 mg/dL (0.2-1.0) Aspartate Amino Transf (AST/SGOT) 21 U/L (15-37) Alanine Aminotransferase (ALT/SGPT) 22 U/L (16-63) Alkaline Phosphatase 108 U/L (46-116) Creatine Kinase 124 U/L (39-308) Creatine Kinase MB (Mass) 2.3 ng/mL (0.0-3.6) Creatine Kinase MB Relative Index 1.9 % (0-4) Troponin I Quantitative < 0.017 ng/mL (0.000-0.055) QA-Ixn-A-Type Natriuretic Peptide 1265 pg/mL (0-124) Total Protein 8.0 g/dL (6.4-8.2) Albumin 3.6 g/dL (3.4-5.0) Albumin/Globulin Ratio 0.8 (1.0-1.7) Lipase 485 U/L (73-393) Glucose (Fingerstick) 64 mg/dL (70-99) 92 mg/dL (70-99) 90 mg/dL (70-99) Test 11/12/18 07:20 11/12/18 07:37 White Blood Count 4.2 x10^3/uL (4.0-11.0) Red Blood Count 4.96 x10^6/uL (4.30-5.70) Hemoglobin 11.9 g/dL (13.0-17.5) Hematocrit 37.2 % (39.0-53.0) Mean Corpuscular Volume 75 fL (79-100) Mean Corpuscular Hemoglobin 24 pg (25-35) Mean Corpuscular Hemoglobin Concent 32 g/dL (31-37) Red Cell Distribution Width 18.2 % (11.5-14.5) Platelet Count 49 x10^3/uL (140-400) Neutrophils (%) (Auto) 49 % (31-73) Lymphocytes (%) (Auto) 35 % (24-48) Monocytes (%) (Auto) 8 % (0-9) Eosinophils (%) (Auto) 7 % (0-3) Basophils (%) (Auto) 1 % (0-3) Neutrophils # (Auto) 2.1 x10^3/uL (1.8-7.7) Lymphocytes # (Auto) 1.5 x10^3/uL (1.0-4.8) Monocytes # (Auto) 0.3 x10^3/uL (0.0-1.1) Eosinophils # (Auto) 0.3 x10^3/uL (0.0-0.7) Basophils # (Auto) 0.0 x10^3/uL (0.0-0.2) Sodium Level 138 mmol/L (136-145) Potassium Level 5.1 mmol/L (3.5-5.1) Chloride Level 97 mmol/L (98-107) Carbon Dioxide Level 29 mmol/L (21-32) Anion Gap 12 (6-14) Blood Urea Nitrogen 90 mg/dL (8-26) Creatinine 15.7 mg/dL (0.7-1.3) Estimated GFR (Cockcroft-Gault) 3.9 Glucose Level 134 mg/dL (70-99) Calcium Level 8.7 mg/dL (8.5-10.1) Glucose (Fingerstick) 133 mg/dL (70-99) Laboratory Tests Test 11/11/18 16:58 11/11/18 18:23 11/11/18 20:23 11/11/18 21:40 White Blood Count 5.6 x10^3/uL (4.0-11.0) Red Blood Count 4.70 x10^6/uL (4.30-5.70) Hemoglobin 11.3 g/dL (13.0-17.5) Hematocrit 35.5 % (39.0-53.0) Mean Corpuscular Volume 76 fL (79-100) Mean Corpuscular Hemoglobin 24 pg (25-35) Mean Corpuscular Hemoglobin Concent 32 g/dL (31-37) Red Cell Distribution Width 18.0 % (11.5-14.5) Platelet Count 64 x10^3/uL (140-400) Neutrophils (%) (Auto) 57 % (31-73) Lymphocytes (%) (Auto) 26 % (24-48) Monocytes (%) (Auto) 10 % (0-9) Eosinophils (%) (Auto) 6 % (0-3) Basophils (%) (Auto) 1 % (0-3) Neutrophils # (Auto) 3.2 x10^3/uL (1.8-7.7) Lymphocytes # (Auto) 1.5 x10^3/uL (1.0-4.8) Monocytes # (Auto) 0.6 x10^3/uL (0.0-1.1) Eosinophils # (Auto) 0.3 x10^3/uL (0.0-0.7) Basophils # (Auto) 0.0 x10^3/uL (0.0-0.2) Platelet Estimate Decreased (ADEQUATE) Hypochromasia Slight Anisocytosis Slight Microcytosis Slight Target Cells Occ Schistocytes Few Prothrombin Time 13.3 SEC (11.7-14.0) Prothromb Time International Ratio 1.0 (0.8-1.1) Sodium Level 138 mmol/L (136-145) Potassium Level 6.8 mmol/L (3.5-5.1) Chloride Level 100 mmol/L (98-107) Carbon Dioxide Level 25 mmol/L (21-32) Anion Gap 13 (6-14) Blood Urea Nitrogen 123 mg/dL (8-26) Creatinine 18.5 mg/dL (0.7-1.3) Estimated GFR (Cockcroft-Gault) 3.2 BUN/Creatinine Ratio 7 (6-20) Glucose Level 80 mg/dL (70-99) Calcium Level 9.0 mg/dL (8.5-10.1) Magnesium Level 2.9 mg/dL (1.8-2.4) Iron Level 118 ug/dL (65-175) Total Iron Binding Capacity 201 ug/dL (250-450) Iron Saturation 59 % (15-34) Total Bilirubin 0.4 mg/dL (0.2-1.0) Aspartate Amino Transf (AST/SGOT) 21 U/L (15-37) Alanine Aminotransferase (ALT/SGPT) 22 U/L (16-63) Alkaline Phosphatase 108 U/L (46-116) Creatine Kinase 124 U/L (39-308) Creatine Kinase MB (Mass) 2.3 ng/mL (0.0-3.6) Creatine Kinase MB Relative Index 1.9 % (0-4) Troponin I Quantitative < 0.017 ng/mL (0.000-0.055) CJ-Pxj-U-Type Natriuretic Peptide 1265 pg/mL (0-124) Total Protein 8.0 g/dL (6.4-8.2) Albumin 3.6 g/dL (3.4-5.0) Albumin/Globulin Ratio 0.8 (1.0-1.7) Lipase 485 U/L (73-393) Glucose (Fingerstick) 64 mg/dL (70-99) 92 mg/dL (70-99) 90 mg/dL (70-99) Test 11/12/18 07:20 11/12/18 07:37 White Blood Count 4.2 x10^3/uL (4.0-11.0) Red Blood Count 4.96 x10^6/uL (4.30-5.70) Hemoglobin 11.9 g/dL (13.0-17.5) Hematocrit 37.2 % (39.0-53.0) Mean Corpuscular Volume 75 fL (79-100) Mean Corpuscular Hemoglobin 24 pg (25-35) Mean Corpuscular Hemoglobin Concent 32 g/dL (31-37) Red Cell Distribution Width 18.2 % (11.5-14.5) Platelet Count 49 x10^3/uL (140-400) Neutrophils (%) (Auto) 49 % (31-73) Lymphocytes (%) (Auto) 35 % (24-48) Monocytes (%) (Auto) 8 % (0-9) Eosinophils (%) (Auto) 7 % (0-3) Basophils (%) (Auto) 1 % (0-3) Neutrophils # (Auto) 2.1 x10^3/uL (1.8-7.7) Lymphocytes # (Auto) 1.5 x10^3/uL (1.0-4.8) Monocytes # (Auto) 0.3 x10^3/uL (0.0-1.1) Eosinophils # (Auto) 0.3 x10^3/uL (0.0-0.7) Basophils # (Auto) 0.0 x10^3/uL (0.0-0.2) Sodium Level 138 mmol/L (136-145) Potassium Level 5.1 mmol/L (3.5-5.1) Chloride Level 97 mmol/L (98-107) Carbon Dioxide Level 29 mmol/L (21-32) Anion Gap 12 (6-14) Blood Urea Nitrogen 90 mg/dL (8-26) Creatinine 15.7 mg/dL (0.7-1.3) Estimated GFR (Cockcroft-Gault) 3.9 Glucose Level 134 mg/dL (70-99) Calcium Level 8.7 mg/dL (8.5-10.1) Glucose (Fingerstick) 133 mg/dL (70-99) Medications Current Medications Albuterol Sulfate (Ventolin Neb Soln) 10 mg 1X ONCE CONT NEB ; Start 11/11/18 at 18:15; Stop 11/11/18 at 18:16; Status DC Dextrose (Dextrose 50%-Water Syringe) 25 gm 1X ONCE IV ; Start 11/11/18 at 18:15; Stop 11/11/18 at 18:16; Status DC Insulin Human Regular (HumuLIN R VIAL) 10 unit 1X ONCE IV ; Start 11/11/18 at 18:15; Stop 11/11/18 at 18:16; Status DC Ondansetron HCl (Zofran) 4 mg PRN Q6HRS PRN IV NAUSEA/VOMITING; Start 11/11/18 at 18:00 Acetaminophen (Tylenol) 500 mg PRN Q6HRS PRN PO HEADACHE / TEMP; Start 11/11/18 at 18:00 Acetaminophen/ Codeine Phosphate (Tylenol #3) 1 tab PRN Q6HRS PRN PO MILD PAIN 1-3 Last administered on 11/12/18 01:51; Start 11/11/18 at 18:00 Temazepam (Restoril) 7.5 mg PRN QHS PRN PO INSOMNIA Last administered on 11/11/18 21:42; Start 11/11/18 at 18:00 Albuterol Sulfate (Ventolin Neb Soln) 2.5 mg PRN Q4HRS PRN NEB SHORTNESS OF BR EATH Last administered on 11/12/18 07:10; Start 11/11/18 at 18:00 Amlodipine Besylate (Norvasc) 5 mg DAILY PO ; Start 11/12/18 at 09:00 Cinacalcet (Sensipar) 30 mg DAILYWSUP PO Last administered on 11/11/18 21:42; Start 11/11/18 at 18:00 Dicyclomine HCl (Bentyl) 10 mg PRN QID PRN PO cramping; Start 11/11/18 at 18:00 Acetaminophen/ Hydrocodone Bitart (Lortab 5/325) 1 tab PRN Q6HRS PRN PO MODERATE PAIN Last administered on 11/12/18 03:59; Start 11/11/18 at 18:00 Sevelamer Carbonate (Renvela) 2,400 mg TIDWMEALS PO Last administered on 11/12/18 08:39; Start 11/11/18 at 18:00 Tamsulosin HCl (Flomax) 0.4 mg DAILYWSUP PO Last administered on 11/11/18at 21:42; Start 11/11/18 at 18:00 Cyclobenzaprine HCl (Flexeril) 5 mg PRN TID PRN PO MUSCLE SPASMS; Start at 18:15 Guaifenesin/ Codeine Phosphate (Robitussin Ac) 5 ml PRN Q6HRS PRN PO COUGH; Start 11/11/18 at 18:15 Polyethylene Glycol (miraLAX PACKET) 17 gm DAILY PO ; Start 11/12/18 at 09:00 Sennosides (Senna) 8.6 mg DAILY PO ; Start 11/11/18 at 09:00 Tramadol HCl (Ultram) 50 mg PRN Q8HRS PRN PO MILD PAIN, 2ND CHOICE Last administered on 11/12/18at 06:02; Start 11/11/18 at 18:15 Magnesium Hydroxide (Milk Of Magnesia) 2,400 mg PRN DAILY PRN PO CONSTIPATION, 1ST CHOICE; Start 11/11/18 at 18:30 Docusate Sodium (Colace) 100 mg DAILY PO ; Start 11/12/18 at 09:00 Sodium Bicarbonate (Sodium Bicarb Adult 8.4% Syr) 50 meq 1X ONCE IV Last administered on 11/11/18at 21:44; Start 11/11/18 at 19:00; Stop 11/11/18 at 19:01; Status DC Sodium Chloride 1,000 ml @ 1,000 mls/hr Q1H PRN IV hypotension; Start 11/11/18 at 19:13; Stop 11/12/18 at 01:12; Status DC Diphenhydramine HCl (Benadryl) 25 mg 1X PRN PRN IV ITCHING; Start 11/11/18 at 19:15; Stop 11/12/18 at 19:14 Diphenhydramine HCl (Benadryl) 25 mg 1X PRN PRN IV ITCHING; Start 11/11/18 at 19:15; Stop 11/12/18 at 19:14 Sodium Chloride 1,000 ml @ 400 mls/hr Q2H30M PRN IV PATENCY; Start 11/11/18 at 19:13; Stop 11/12/18 at 07:12; Status DC Info (PHARMACY MONITORING -- do not chart) 1 each PRN DAILY PRN MC SEE MONIKA TS; Start 11/11/18 at 19:15 Sodium Chloride 1,000 ml @ 1,000 mls/hr Q1H PRN IV hypotension; Start 11/12/18 at 07:24; Stop 11/12/18 at 13:23 Sodium Chloride 1,000 ml @ 400 mls/hr Q2H30M PRN IV PATENCY; Start 11/12/18 at 07:24; Stop 11/12/18 at 19:23 Info (PHARMACY MONITORING -- do not chart) 1 each PRN DAILY PRN MC SEE COMMENTS; Start 11/12/18 at 07:30; Status UNV Info (PHARMACY MONITORING -- do not chart) 1 each PRN DAILY PRN MC SEE COMMENTS; Start 11/12/18 at 07:30; Status UNV Active Scripts Active Hydrocodone-Guaif 2.5-200 mg/5 (Guaifenesin/Hydrocodone) 118 Ml Solution 2.5 Ml PO PRN BID PRN 6 Days Tramadol Hcl 50 Mg Tablet 50 Mg PO PRN Q8HRS PRN Flomax (Tamsulosin Hcl) 0.4 Mg Cap.er.24h 1 Cap PO DAILYWSUP Viagra (Sildenafil Citrate) 100 Mg Tablet 1 Tab PO PRN DAILY PRN Sensipar (Cinacalcet Hcl) 30 Mg Tablet 1 Tab PO DAILYWSUP Dicyclomine Hcl 10 Mg Capsule 10 Mg PO QID PRN Reported Renvela (Sevelamer Carbonate) 800 Mg Tablet 3 Tab PO TID Senna (Sennosides) 8.6 Mg Tablet 8.6 Mg PO DAILY Miralax (Polyethylene Glycol 3350) 17 Gm Powd.pack 1 Packet PO DAILY Amlodipine Besylate 5 Mg Tablet 5 Mg PO DAILY Hydrocodone-Apap 5-325 (Hydrocodone Bit/Acetaminophen) 1 Tab Tablet 1 Tab PO PRN Q6HRS PRN Cyclobenzaprine Hcl 5 Mg Tablet 1 Tab PO TID PRN Vitals/I & O Vital Sign - Last 24 Hours 11/11/18 11/11/18 11/11/18 11/11/18 16:34 17:30 18:30 21:41 Temp 97.7 97.7 Pulse 70 64 64 Resp 18 17 15 B/P (MAP) 127/60 (82) 152/72 (98) 143/65 (91) Pulse Ox 100 100 98 O2 Delivery Room Air Room Air Room Air Room Air 11/11/18 11/11/18 11/11/18 11/11/18 21:41 21:50 22:00 23:00 Temp 98.1 98.1 Pulse 76 Resp 18 B/P (MAP) 122/59 (80) Pulse Ox 99 97 O2 Delivery Room Air Room Air Room Air Room Air 11/12/18 11/12/18 11/12/18 11/12/18 01:51 02:51 03:00 03:59 Temp 98.4 98.4 Pulse 80 Resp 18 B/P (MAP) 144/56 (85) Pulse Ox 98 O2 Delivery Room Air Room Air Room Air Room Air 11/12/18 11/12/18 11/12/18 11/12/18 05:01 06:02 07:02 07:11 Pulse Ox 100 100 O2 Delivery Room Air Room Air Room Air Room Air 11/12/18 11/12/18 07:49 08:00 Temp 98.3 98.3 Pulse 76 Resp 18 B/P (MAP) 127/63 (84) Pulse Ox 98 O2 Delivery Room Air Room Air Intake and Output 11/11/18 11/11/18 11/12/18 14:59 22:59 06:59 Intake Total 300 ml Output Total 0 ml Balance 300 ml IRENA REYNOLDS MD Nov 12, 2018 10:33
--- NOTE | 2018-11-12 12:05 | PDOC2 ---
CONSULT Date of Consult Date of Consult DATE: 11/12/18 TIME: 12:01 History of Present Illness Reason for Visit: THIS IS A 53 YR OLD WITH CONFUSION. HAS ESRD AND NON COMPLIANCE. HAS NOT BEEN TO HD FOR MORE THAN A WEEK. NOTED TO HAVE A K OF 6.8 AND SOB AND PULMONARY VASCULAR CONGESTION. LABS C/W ESRD AND ADMIT CR OF 19. D/W ER AND GAVE TEMPORIZING MEASURES FOR HIS HIGH K. HAS ESRD DUE TO HTN. Past Medical History Cardiovascular: HTN GI: Constipation Heme/Onc: Anemia NOS Renal/: Chronic renal failure Endocrine: Diabetes, Hyperparathyroidism Past Surgical History Past Surgical History: Other (R AV fistuula arm) Family History Family History: Alcohol Abuse, Drug Abuse, Hypertension Social History No ALCOHOL: none Drugs: None, Other Current Problem List Problem List Problems Medical Problems: (1) Anemia Status: Acute (2) ESRD (end stage renal disease) Status: Acute (3) Hypermagnesemia Status: Acute (4) Missed dialysis Status: Acute (5) Shortness of breath Status: Acute Current Medications Current Medications Current Medications Albuterol Sulfate (Ventolin Neb Soln) 10 mg 1X ONCE CONT NEB ; Start 11/11/18 at 18:15; Stop 11/11/18 at 18:16; Status DC Dextrose (Dextrose 50%-Water Syringe) 25 gm 1X ONCE IV ; Start 11/11/18 at 18:15; Stop 11/11/18 at 18:16; Status DC Insulin Human Regular (HumuLIN R VIAL) 10 unit 1X ONCE IV ; Start 11/11/18 at 18:15; Stop 11/11/18 at 18:16; Status DC Ondansetron HCl (Zofran) 4 mg PRN Q6HRS PRN IV NAUSEA/VOMITING; Start 11/11/18 at 18:00 Acetaminophen (Tylenol) 500 mg PRN Q6HRS PRN PO HEADACHE / TEMP; Start 11/11/18 at 18:00 Acetaminophen/ Codeine Phosphate (Tylenol #3) 1 tab PRN Q6HRS PRN PO MILD PAIN 1-3 Last administered on 11/12/18at 01:51; Start 11/11/18 at 18:00 Temazepam (Restoril) 7.5 mg PRN QHS PRN PO INSOMNIA Last administered on 11/11/18at 21:42; Start 11/11/18 at 18:00 Albuterol Sulfate (Ventolin Neb Soln) 2.5 mg PRN Q4HRS PRN NEB SHORTNESS OF BREATH Last administered on 11/12/18 07:10; Start 11/11/18 at 18:00 Amlodipine Besylate (Norvasc) 5 mg DAILY PO ; Start 11/12/18 at 09:00 Cinacalcet (Sensipar) 30 mg DAILYWSUP PO Last administered on 11/11/18at 21:42; Start 11/11/18 at 18:00 Dicyclomine HCl (Bentyl) 10 mg PRN QID PRN PO cramping; Start 11/11/18 at 18:00 Acetaminophen/ Hydrocodone Bitart (Lortab 5/325) 1 tab PRN Q6HRS PRN PO MODERATE PAIN Last administered on 11/12/18at 03:59; Start 11/11/18 at 18:00 Sevelamer Carbonate (Renvela) 2,400 mg TIDWMEALS PO Last administered on 11/12/18at 08:39; Start 11/11/18 at 18:00 Tamsulosin HCl (Flomax) 0.4 mg DAILYWSUP PO Last administered on 11/11/18 21:42; Start 11/11/18 at 18:00 Cyclobenzaprine HCl (Flexeril) 5 mg PRN TID PRN PO MUSCLE SPASMS; Start 11/11/18 at 18:15 Guaifenesin/ Codeine Phosphate (Robitussin Ac) 5 ml PRN Q6HRS PRN PO COUGH; Start 11/11/18 at 18:15 Polyethylene Glycol (miraLAX PACKET) 17 gm DAILY PO ; Start 11/12/18 at 09:00 Sennosides (Senna) 8.6 mg DAILY PO ; Start 11/11/18 at 09:00 Tramadol HCl (Ultram) 50 mg PRN Q8HRS PRN PO MILD PAIN, 2ND CHOICE Last administered on 11/12/18at 06:02; Start 11/11/18 at 18:15 Magnesium Hydroxide (Milk Of Magnesia) 2,400 mg PRN DAILY PRN PO CONSTIPATION, 1ST CHOICE; Start 11/11/18 at 18:30 Docusate Sodium (Colace) 100 mg DAILY PO ; Start 11/12/18 at 09:00 Sodium Bicarbonate (Sodium Bicarb Adult 8.4% Syr) 50 meq 1X ONCE IV Last administered on 11/11/18at 21:44; Start 11/11/18 at 19:00; Stop 11/11/18 at 19:01; Status DC Sodium Chloride 1,000 ml @ 1,000 mls/hr Q1H PRN IV hypotension; Start 11/11/18 at 19:13; Stop 11/12/18 at 01:12; Status DC Diphenhydramine HCl (Benadryl) 25 mg 1X PRN PRN IV ITCHING; Start 11/11/18 at 19:15; Stop 11/12/18 at 19:14 Diphenhydramine HCl (Benadryl) 25 mg 1X PRN PRN IV ITCHING; Start 11/11/18 at 19:15; Stop 11/12/18 at 19:14 Sodium Chloride 1,000 ml @ 400 mls/hr Q2H30M PRN IV PATENCY; Start 11/11/18 at 19:13; Stop 11/12/18 at 07:12; Status DC Info (PHARMACY MONITORING -- do not chart) 1 each PRN DAILY PRN MC SEE COMMENTS; Start 11/11/18 at 19:15 Sodium Chloride 1,000 ml @ 1,000 mls/hr Q1H PRN IV hypotension; Start 11/12/18 at 07:24; Stop 11/12/18 at 13:23 Sodium Chloride 1,000 ml @ 400 mls/hr Q2H30M PRN IV PATENCY; Start 11/12/18 at 07:24; Stop 11/12/18 at 19:23 Info (PHARMACY MONITORING -- do not chart) 1 each PRN DAILY PRN MC SEE COMMENTS; Start 11/12/18 at 07:30; Status UNV Info (PHARMACY MONITORING -- do not chart) 1 each PRN DAILY PRN MC SEE COMMENTS; Start 11/12/18 at 07:30; Status UNV Active Scripts Active Hydrocodone-Guaif 2.5-200 mg/5 (Guaifenesin/Hydrocodone) 118 Ml Solution 2.5 Ml PO PRN BID PRN 6 Days Tramadol Hcl 50 Mg Tablet 50 Mg PO PRN Q8HRS PRN Flomax (Tamsulosin Hcl) 0.4 Mg Cap.er.24h 1 Cap PO DAILYWSUP Viagra (Sildenafil Citrate) 100 Mg Tablet 1 Tab PO PRN DAILY PRN Sensipar (Cinacalcet Hcl) 30 Mg Tablet 1 Tab PO DAILYWSUP Dicyclomine Hcl 10 Mg Capsule 10 Mg PO QID PRN Reported Renvela (Sevelamer Carbonate) 800 Mg Tablet 3 Tab PO TID Senna (Sennosides) 8.6 Mg Tablet 8.6 Mg PO DAILY Miralax (Polyethylene Glycol 3350) 17 Gm Powd.pack 1 Packet PO DAILY Amlodipine Besylate 5 Mg Tablet 5 Mg PO DAILY Hydrocodone-Apap 5-325 (Hydrocodone Bit/Acetaminophen) 1 Tab Tablet 1 Tab PO PRN Q6HRS PRN Cyclobenzaprine Hcl 5 Mg Tablet 1 Tab PO TID PRN Allergies Allergies: Coded Allergies: No Known Drug Allergies (Unverified , 08/16/14) ROS Review of System CONFUSED Physical Exam General: No acute distress HEENT: Atraumatic, Mucous membr. moist/pink Lungs: Clear to auscultation, Normal air movement Heart: Regular rate, Normal S1, Normal S2 Abdomen: Normal bowel sounds, Soft, No tenderness Extremities: No clubbing Skin: No breakdown Neuro: Other (CONFUSED) Psych/Mental Status: Other (CONFUSED) MUSCULOSKELETAL: No deformity, No swelling Vitals VITALS Vital Signs Date Time Temp Pulse Resp B/P (MAP) Pulse Ox O2 Delivery O2 Flow Rate FiO2 11/12/18 08:00 Room Air 11/12/18 07:49 98.3 76 18 127/63 (84) 98 98.3 Labs Labs Laboratory Tests Test 11/11/18 16:58 11/11/18 18:23 11/11/18 20:23 11/11/18 21:40 White Blood Count 5.6 x10^3/uL (4.0-11.0) Red Blood Count 4.70 x10^6/uL (4.30-5.70) Hemoglobin 11.3 g/dL (13.0-17.5) Hematocrit 35.5 % (39.0-53.0) Mean Corpuscular Volume 76 fL (79-100) Mean Corpuscular Hemoglobin 24 pg (25-35) Mean Corpuscular Hemoglobin Concent 32 g/dL (31-37) Red Cell Distribution Width 18.0 % (11.5-14.5) Platelet Count 64 x10^3/uL (140-400) Neutrophils (%) (Auto) 57 % (31-73) Lymphocytes (%) (Auto) 26 % (24-48) Monocytes (%) (Auto) 10 % (0-9) Eosinophils (%) (Auto) 6 % (0-3) Basophils (%) (Auto) 1 % (0-3) Neutrophils # (Auto) 3.2 x10^3/uL (1.8-7.7) Lymphocytes # (Auto) 1.5 x10^3/uL (1.0-4.8) Monocytes # (Auto) 0.6 x10^3/uL (0.0-1.1) Eosinophils # (Auto) 0.3 x10^3/uL (0.0-0.7) Basophils # (Auto) 0.0 x10^3/uL (0.0-0.2) Platelet Estimate Decreased (ADEQUATE) Hypochromasia Slight Anisocytosis Slight Microcytosis Slight Target Cells Occ Schistocytes Few Prothrombin Time 13.3 SEC (11.7-14.0) Prothromb Time International Ratio 1.0 (0.8-1.1) Sodium Level 138 mmol/L (136-145) Potassium Level 6.8 mmol/L (3.5-5.1) Chloride Level 100 mmol/L (98-107) Carbon Dioxide Level 25 mmol/L (21-32) Anion Gap 13 (6-14) Blood Urea Nitrogen 123 mg/dL (8-26) Creatinine 18.5 mg/dL (0.7-1.3) Estimated GFR (Cockcroft-Gault) 3.2 BUN/Creatinine Ratio 7 (6-20) Glucose Level 80 mg/dL (70-99) Calcium Level 9.0 mg/dL (8.5-10.1) Magnesium Level 2.9 mg/dL (1.8-2.4) Iron Level 118 ug/dL (65-175) Total Iron Binding Capacity 201 ug/dL (250-450) Iron Saturation 59 % (15-34) Total Bilirubin 0.4 mg/dL (0.2-1.0) Aspartate Amino Transf (AST/SGOT) 21 U/L (15-37) Alanine Aminotransferase (ALT/SGPT) 22 U/L (16-63) Alkaline Phosphatase 108 U/L (46-116) Creatine Kinase 124 U/L (39-308) Creatine Kinase MB (Mass) 2.3 ng/mL (0.0-3.6) Creatine Kinase MB Relative Index 1.9 % (0-4) Troponin I Quantitative < 0.017 ng/mL (0.000-0.055) ZB-Fot-L-Type Natriuretic Peptide 1265 pg/mL (0-124) Total Protein 8.0 g/dL (6.4-8.2) Albumin 3.6 g/dL (3.4-5.0) Albumin/Globulin Ratio 0.8 (1.0-1.7) Lipase 485 U/L (73-393) Glucose (Fingerstick) 64 mg/dL (70-99) 92 mg/dL (70-99) 90 mg/dL (70-99) Test 11/12/18 07:20 11/12/18 07:37 White Blood Count 4.2 x10^3/uL (4.0-11.0) Red Blood Count 4.96 x10^6/uL (4.30-5.70) Hemoglobin 11.9 g/dL (13.0-17.5) Hematocrit 37.2 % (39.0-53.0) Mean Corpuscular Volume 75 fL (79-100) Mean Corpuscular Hemoglobin 24 pg (25-35) Mean Corpuscular Hemoglobin Concent 32 g/dL (31-37) Red Cell Distribution Width 18.2 % (11.5-14.5) Platelet Count 49 x10^3/uL (140-400) Neutrophils (%) (Auto) 49 % (31-73) Lymphocytes (%) (Auto) 35 % (24-48) Monocytes (%) (Auto) 8 % (0-9) Eosinophils (%) (Auto) 7 % (0-3) Basophils (%) (Auto) 1 % (0-3) Neutrophils # (Auto) 2.1 x10^3/uL (1.8-7.7) Lymphocytes # (Auto) 1.5 x10^3/uL (1.0-4.8) Monocytes # (Auto) 0.3 x10^3/uL (0.0-1.1) Eosinophils # (Auto) 0.3 x10^3/uL (0.0-0.7) Basophils # (Auto) 0.0 x10^3/uL (0.0-0.2) Sodium Level 138 mmol/L (136-145) Potassium Level 5.1 mmol/L (3.5-5.1) Chloride Level 97 mmol/L (98-107) Carbon Dioxide Level 29 mmol/L (21-32) Anion Gap 12 (6-14) Blood Urea Nitrogen 90 mg/dL (8-26) Creatinine 15.7 mg/dL (0.7-1.3) Estimated GFR (Cockcroft-Gault) 3.9 Glucose Level 134 mg/dL (70-99) Calcium Level 8.7 mg/dL (8.5-10.1) Glucose (Fingerstick) 133 mg/dL (70-99) Laboratory Tests Test 11/11/18 16:58 11/11/18 18:23 11/11/18 20:23 11/11/18 21:40 White Blood Count 5.6 x10^3/uL (4.0-11.0) Red Blood Count 4.70 x10^6/uL (4.30-5.70) Hemoglobin 11.3 g/dL (13.0-17.5) Hematocrit 35.5 % (39.0-53.0) Mean Corpuscular Volume 76 fL (79-100) Mean Corpuscular Hemoglobin 24 pg (25-35) Mean Corpuscular Hemoglobin Concent 32 g/dL (31-37) Red Cell Distribution Width 18.0 % (11.5-14.5) Platelet Count 64 x10^3/uL (140-400) Neutrophils (%) (Auto) 57 % (31-73) Lymphocytes (%) (Auto) 26 % (24-48) Monocytes (%) (Auto) 10 % (0-9) Eosinophils (%) (Auto) 6 % (0-3) Basophils (%) (Auto) 1 % (0-3) Neutrophils # (Auto) 3.2 x10^3/uL (1.8-7.7) Lymphocytes # (Auto) 1.5 x10^3/uL (1.0-4.8) Monocytes # (Auto) 0.6 x10^3/uL (0.0-1.1) Eosinophils # (Auto) 0.3 x10^3/uL (0.0-0.7) Basophils # (Auto) 0.0 x10^3/uL (0.0-0.2) Platelet Estimate Decreased (ADEQUATE) Hypochromasia Slight Anisocytosis Slight Microcytosis Slight Target Cells Occ Schistocytes Few Prothrombin Time 13.3 SEC (11.7-14.0) Prothromb Time International Ratio 1.0 (0.8-1.1) Sodium Level 138 mmol/L (136-145) Potassium Level 6.8 mmol/L (3.5-5.1) Chloride Level 100 mmol/L (98-107) Carbon Dioxide Level 25 mmol/L (21-32) Anion Gap 13 (6-14) Blood Urea Nitrogen 123 mg/dL (8-26) Creatinine 18.5 mg/dL (0.7-1.3) Estimated GFR (Cockcroft-Gault) 3.2 BUN/Creatinine Ratio 7 (6-20) Glucose Level 80 mg/dL (70-99) Calcium Level 9.0 mg/dL (8.5-10.1) Magnesium Level 2.9 mg/dL (1.8-2.4) Iron Level 118 ug/dL (65-175) Total Iron Binding Capacity 201 ug/dL (250-450) Iron Saturation 59 % (15-34) Total Bilirubin 0.4 mg/dL (0.2-1.0) Aspartate Amino Transf (AST/SGOT) 21 U/L (15-37) Alanine Aminotransferase (ALT/SGPT) 22 U/L (16-63) Alkaline Phosphatase 108 U/L (46-116) Creatine Kinase 124 U/L (39-308) Creatine Kinase MB (Mass) 2.3 ng/mL (0.0-3.6) Creatine Kinase MB Relative Index 1.9 % (0-4) Troponin I Quantitative < 0.017 ng/mL (0.000-0.055) KW-Jko-J-Type Natriuretic Peptide 1265 pg/mL (0-124) Total Protein 8.0 g/dL (6.4-8.2) Albumin 3.6 g/dL (3.4-5.0) Albumin/Globulin Ratio 0.8 (1.0-1.7) Lipase 485 U/L (73-393) Glucose (Fingerstick) 64 mg/dL (70-99) 92 mg/dL (70-99) 90 mg/dL (70-99) Test 11/12/18 07:20 11/12/18 07:37 White Blood Count 4.2 x10^3/uL (4.0-11.0) Red Blood Count 4.96 x10^6/uL (4.30-5.70) Hemoglobin 11.9 g/dL (13.0-17.5) Hematocrit 37.2 % (39.0-53.0) Mean Corpuscular Volume 75 fL (79-100) Mean Corpuscular Hemoglobin 24 pg (25-35) Mean Corpuscular Hemoglobin Concent 32 g/dL (31-37) Red Cell Distribution Width 18.2 % (11.5-14.5) Platelet Count 49 x10^3/uL (140-400) Neutrophils (%) (Auto) 49 % (31-73) Lymphocytes (%) (Auto) 35 % (24-48) Monocytes (%) (Auto) 8 % (0-9) Eosinophils (%) (Auto) 7 % (0-3) Basophils (%) (Auto) 1 % (0-3) Neutrophils # (Auto) 2.1 x10^3/uL (1.8-7.7) Lymphocytes # (Auto) 1.5 x10^3/uL (1.0-4.8) Monocytes # (Auto) 0.3 x10^3/uL (0.0-1.1) Eosinophils # (Auto) 0.3 x10^3/uL (0.0-0.7) Basophils # (Auto) 0.0 x10^3/uL (0.0-0.2) Sodium Level 138 mmol/L (136-145) Potassium Level 5.1 mmol/L (3.5-5.1) Chloride Level 97 mmol/L (98-107) Carbon Dioxide Level 29 mmol/L (21-32) Anion Gap 12 (6-14) Blood Urea Nitrogen 90 mg/dL (8-26) Creatinine 15.7 mg/dL (0.7-1.3) Estimated GFR (Cockcroft-Gault) 3.9 Glucose Level 134 mg/dL (70-99) Calcium Level 8.7 mg/dL (8.5-10.1) Glucose (Fingerstick) 133 mg/dL (70-99) Assessment/Plan Assessment/Plan IMP LIFE THREATENING HYPERKALEMIA NON COMPLIANCE ESRD-OP ON TTS BUT SKIPPED FOR MORE THAN A WK PER SPOUSE UREMIC ENCEPHALOPATHY ANEMIA HTN PLAN TEMPORIZING MEASURES FOR HIGH K D/W ER EMERGENT HD LOW K DIALYSATE WILL DO DIALYSIS DAILY AND THEN TTS WILL ENC COMPLIANCE ONCE MENTATION IS MORE CLEAR MARCI WHEN NEEDED NAA MOISE MD Nov 12, 2018 12:05
[2018-11-12 13:19] VITALS: BP 102/58
[2018-11-12] MEDS: DICYCLOMINE HCL 10 MG CAPSULE PO PRN ×2 (13:37→20:16)
[2018-11-12] MEDS: DOCUSATE SODIUM 100 MG CAPSULE. PO SCH (13:39)
[2018-11-12] MEDS: SENNOSIDES 8.6 MG TABLET PO SCH (13:39)
[2018-11-12] MEDS: POLYETHYLENE GLYCOL 3350 17 GM PACKET. PO SCH (13:40)
--- NOTE | 2018-11-12 13:48 | EKG ---
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
[2018-11-12 15:16] VITALS: BP 106/65
[2018-11-12] MEDS: CINACALCET HCL 30 MG TABLET PO SCH (17:40)
[2018-11-12] MEDS: TAMSULOSIN 0.4 MG CAP.ER.24H. PO SCH (17:40)
[2018-11-12] MEDS: CYCLOBENZAPRINE 10 MG TABLET. PO PRN (17:41)
[2018-11-12 19:54] VITALS: BP 106/81
[2018-11-12] MEDS ORDERED: GABA100C6 PO (22:17)
[2018-11-12 23:30] VITALS: BP 100/60
[2018-11-13] MEDS: GABAPENTIN 100 MG CAPSULE. PO SCH (00:55)
--- NOTE | 2018-11-13 01:06 | NUR ---
Report given to FRANCES Lima on 5th floor. Pt transferred to room 500 from 662 via wheelchair with CREELER. All belongings accounted for.
[2018-11-13 03:01] VITALS: BP 136/76
[2018-11-13 06:40] LABS: CREATININE 12.6 mg/dL (0.7-1.3); POTASSIUM 5.6 mmol/L (3.5-5.1)
[2018-11-13 06:41] LABS: BASO % 1 % (0-3); EOS # 0.3 x10^3/uL (0.0-0.7); EOS % 7 % (0-3); HEMATOCRIT 38.5 % (39.0-53.0); HEMOGLOBIN 12.2 g/dL (13.0-17.5); LYMPH # 1.7 x10^3/uL (1.0-4.8); LYMPH % 35 % (24-48); MEAN CORPUSCULAR HEMOGLOBIN 24 pg (25-35); MEAN CORPUSCULAR HGB CONC 32 g/dL (31-37); MEAN CORPUSCULAR VOLUME 76 fL (79-100); MONO # 0.7 x10^3/uL (0.0-1.1); MONO % 13 % (0-9); NEUT # 2.2 x10^3/uL (1.8-7.7); NEUT % 45 % (31-73); PLATELET COUNT 50 x10^3/uL (140-400); RED BLOOD COUNT 5.06 x10^6/uL (4.30-5.70); RED CELL DISTRIBUTION WIDTH 18.2 % (11.5-14.5)
[2018-11-13 07:00] VITALS: BP 110/61
[2018-11-13] MEDS: SENNOSIDES 8.6 MG TABLET PO SCH (07:59)
[2018-11-13] MEDS: POLYETHYLENE GLYCOL 3350 17 GM PACKET. PO SCH (07:59)
[2018-11-13] MEDS: SEVELAMER CARBONATE 800 MG TABLET. PO SCH ×3 (07:59→17:06)
[2018-11-13] MEDS: amLODIPine BESYLATE 5 MG TABLET PO SCH (08:00)
[2018-11-13] MEDS: HYDROcodone/APAP 5/325MG 1 TAB TABLET PO PRN ×3 (08:00→21:13)
[2018-11-13] MEDS: DOCUSATE SODIUM 100 MG CAPSULE. PO SCH (08:00)
[2018-11-13] MEDS: ALBUTEROL SULFATE 2.5 MG/3 ML NEBU. NEB PRN ×2 (08:55→20:05)
[2018-11-13] MEDS: CYCLOBENZAPRINE 10 MG TABLET. PO PRN (10:52)
--- NOTE | 2018-11-13 10:52 | PDOC ---
Renal-Progress Notes Subjective Notes Notes NO NEW COMPLAINTS History of Present Illness Hx of present illness STABLE Vitals Vitals Vital Signs Date Time Temp Pulse Resp B/P (MAP) Pulse Ox O2 Delivery O2 Flow Rate FiO2 11/13/18 09:30 97 Room Air 11/13/18 08:00 76 110/61 11/13/18 07:00 98.4 14 98.4 Weight Weight [ ] I.O. Intake and Output Intake and Output 11/13/18 06:59 Intake Total 1160 ml Balance 1160 ml Intake Oral 1160 ml # Voids 1 Labs Labs Laboratory Tests Test 11/12/18 13:17 11/12/18 16:50 11/12/18 19:34 11/13/18 04:35 Glucose (Fingerstick) 121 mg/dL (70-99) 125 mg/dL (70-99) 169 mg/dL (70-99) White Blood Count 5.0 x10^3/uL (4.0-11.0) Red Blood Count 5.06 x10^6/uL (4.30-5.70) Hemoglobin 12.2 g/dL (13.0-17.5) Hematocrit 38.5 % (39.0-53.0) Mean Corpuscular Volume 76 fL (79-100) Mean Corpuscular Hemoglobin 24 pg (25-35) Mean Corpuscular Hemoglobin Concent 32 g/dL (31-37) Red Cell Distribution Width 18.2 % (11.5-14.5) Platelet Count 50 x10^3/uL (140-400) Neutrophils (%) (Auto) 45 % (31-73) Lymphocytes (%) (Auto) 35 % (24-48) Monocytes (%) (Auto) 13 % (0-9) Eosinophils (%) (Auto) 7 % (0-3) Basophils (%) (Auto) 1 % (0-3) Neutrophils # (Auto) 2.2 x10^3/uL (1.8-7.7) Lymphocytes # (Auto) 1.7 x10^3/uL (1.0-4.8) Monocytes # (Auto) 0.7 x10^3/uL (0.0-1.1) Eosinophils # (Auto) 0.3 x10^3/uL (0.0-0.7) Basophils # (Auto) 0.0 x10^3/uL (0.0-0.2) Sodium Level 139 mmol/L (136-145) Potassium Level 5.6 mmol/L (3.5-5.1) Chloride Level 97 mmol/L (98-107) Carbon Dioxide Level 32 mmol/L (21-32) Anion Gap 10 (6-14) Blood Urea Nitrogen 66 mg/dL (8-26) Creatinine 12.6 mg/dL (0.7-1.3) Estimated GFR (Cockcroft-Gault) 5.0 Glucose Level 70 mg/dL (70-99) Calcium Level 9.0 mg/dL (8.5-10.1) Test 11/13/18 07:14 Glucose (Fingerstick) 94 mg/dL (70-99) Review of Systems Constitutional: yes: weakness, alert, oriented Ears/Nose/Throat: Yes: no symptom reported Eyes: Yes: no symptom reported Pulmonary: Yes no symptom reported Cardiovascular: Yes no symptom reported Gastrointestional: Yes: no symptom reported Genitourinary: Yes: no symptom reported Musculoskeletal: Yes: no symptom reported Skin: Yes no symptom reported Psychiatric/Neurological: Yes: no symptom reported Endocrine: Yes: no symptom reported Hematologic/Lymphatic: Yes: no symptom reported Physical Exam General Appearance: no apparent distress Skin: warm Respiratory: bilateral CTA Heart: S1S2, RRR Abdomen: soft, bowel sounds present Genitourinary: bladder flat Extremities: pulses present Neurology: alert, oriented Assessment Assessment IMP LIFE THREATENING HYPERKALEMIA-RESOLVED NON COMPLIANCE ESRD-OP ON TTS BUT SKIPPED FOR MORE THAN A WK PER SPOUSE UREMIC ENCEPHALOPATHY-BETTER ANEMIA HTN PLAN HD TTS WILL ENC COMPLIANCE ONCE MENTATION IS MORE CLEAR MARCI WHEN NEEDED NAA MOISE MD Nov 13, 2018 10:52
--- NOTE | 2018-11-13 10:58 | PDOC ---
PROGRESS NOTES Chief Complaint Chief Complaint impression ESRD, missed dialysis 1 week's worth Anemia of ESRD Hyperkalemia, SEVERE poa 6.8 impression SOA Constipation, resolved Thrombocytopenia Microcytic anemia in a dialysis patient morbid obesity met enceph, back to baseline consider hypoventilation syndrome, chk abg, former smoker 37 min pt exam, chart review, > 50% of time spent with exam, chart review, pt care coordination History of Present Illness History of Present Illness dialysis again 11/12 His mental status seems to be at baseline now Creatinine/results today noted Plan: dialysis per renal Labs again tomorrow home meds from the ER Vitals Vitals Vital Signs Date Time Temp Pulse Resp B/P (MAP) Pulse Ox O2 Delivery O2 Flow Rate FiO2 11/13/18 09:30 97 Room Air 11/13/18 08:00 76 110/61 11/13/18 07:00 98.4 14 98.4 Physical Exam General: Alert, Cooperative, No acute distress Heart: Regular rate, Normal S1, Normal S2 Lungs: Clear Abdomen: Normal bowel sounds, Soft, No tenderness Extremities: No clubbing Skin: No breakdown Labs LABS LEFT VENTRICLE The left ventricle is normal size. There is normal left ventricular wall thickness. Left ventricle is normal. The Ejection Fraction is 50-55%. Tissue Doppler imaging reveals abnormal left ventricular diastolic dysfunction. RIGHT VENTRICLE The right ventricle is normal size. ATRIA The left atrium size is normal. The right atrium size is normal. The interatrial septum is intact with no evidence for an atrial septal defect or patent foramen ovale as noted on 2-D or Doppler imaging. AORTIC VALVE The aortic valve is normal in structure and function. Doppler and Color Flow revealed no significant aortic regurgitation. There is no significant aortic valvular stenosis. MITRAL VALVE The mitral valve is normal in structure. There is no mitral valve stenosis. Doppler and Color Flow revealed no mitral valve regurgitation noted. TRICUSPID VALVE The tricuspid valve is normal in structure. Doppler and Color Flow revealed mild tricuspid regurgitation. The PA pressure was estimated at 36 mmHg. There is no tricuspid valve stenosis. PULMONIC VALVE The pulmonary valve is normal in structure. Doppler and Color Flow revealed mild pulmonic valvular regurgitation. There is no pulmonic valvular stenosis. GREAT VESSELS The aortic root is normal in size. Pulmonary veins not recorded. The IVC is normal in size and collapses >50% with inspiration. PERICARDIAL EFFUSION There is no evidence of significant pericardial effusion. Critical Notification Critical Value: No <Conclusion> The left ventricle is normal size. Left ventricle is normal. The Ejection Fraction is 50-55%. Tissue Doppler imaging reveals abnormal left ventricular diastolic dysfunction. The aortic valve is normal in structure and function. The mitral valve is normal in structure. Doppler and Color Flow revealed mild tricuspid regurgitation. The PA pressure was estimated at 36 mmHg. Doppler and Color Flow revealed mild pulmonic valvular regurgitation. Laboratory Tests Test 11/12/18 13:17 11/12/18 16:50 11/12/18 19:34 11/13/18 04:35 Glucose (Fingerstick) 121 mg/dL (70-99) 125 mg/dL (70-99) 169 mg/dL (70-99) White Blood Count 5.0 x10^3/uL (4.0-11.0) Red Blood Count 5.06 x10^6/uL (4.30-5.70) Hemoglobin 12.2 g/dL (13.0-17.5) Hematocrit 38.5 % (39.0-53.0) Mean Corpuscular Volume 76 fL (79-100) Mean Corpuscular Hemoglobin 24 pg (25-35) Mean Corpuscular Hemoglobin Concent 32 g/dL (31-37) Red Cell Distribution Width 18.2 % (11.5-14.5) Platelet Count 50 x10^3/uL (140-400) Neutrophils (%) (Auto) 45 % (31-73) Lymphocytes (%) (Auto) 35 % (24-48) Monocytes (%) (Auto) 13 % (0-9) Eosinophils (%) (Auto) 7 % (0-3) Basophils (%) (Auto) 1 % (0-3) Neutrophils # (Auto) 2.2 x10^3/uL (1.8-7.7) Lymphocytes # (Auto) 1.7 x10^3/uL (1.0-4.8) Monocytes # (Auto) 0.7 x10^3/uL (0.0-1.1) Eosinophils # (Auto) 0.3 x10^3/uL (0.0-0.7) Basophils # (Auto) 0.0 x10^3/uL (0.0-0.2) Sodium Level 139 mmol/L (136-145) Potassium Level 5.6 mmol/L (3.5-5.1) Chloride Level 97 mmol/L (98-107) Carbon Dioxide Level 32 mmol/L (21-32) Anion Gap 10 (6-14) Blood Urea Nitrogen 66 mg/dL (8-26) Creatinine 12.6 mg/dL (0.7-1.3) Estimated GFR (Cockcroft-Gault) 5.0 Glucose Level 70 mg/dL (70-99) Calcium Level 9.0 mg/dL (8.5-10.1) Test 11/13/18 07:14 Glucose (Fingerstick) 94 mg/dL (70-99) Assessment and Plan Assessmemt and Plan Problems Medical Problems: (1) Anemia Status: Acute (2) ESRD (end stage renal disease) Status: Acute (3) Hypermagnesemia Status: Acute (4) Missed dialysis Status: Acute (5) Shortness of breath Status: Acute Comment Review of Relevant I have reviewed the following items katherine (where applicable) has been applied. Labs Laboratory Tests Test 11/11/18 16:58 11/11/18 18:23 11/11/18 20:23 11/11/18 21:40 White Blood Count 5.6 x10^3/uL (4.0-11.0) Red Blood Count 4.70 x10^6/uL (4.30-5.70) Hemoglobin 11.3 g/dL (13.0-17.5) Hematocrit 35.5 % (39.0-53.0) Mean Corpuscular Volume 76 fL (79-100) Mean Corpuscular Hemoglobin 24 pg (25-35) Mean Corpuscular Hemoglobin Concent 32 g/dL (31-37) Red Cell Distribution Width 18.0 % (11.5-14.5) Platelet Count 64 x10^3/uL (140-400) Neutrophils (%) (Auto) 57 % (31-73) Lymphocytes (%) (Auto) 26 % (24-48) Monocytes (%) (Auto) 10 % (0-9) Eosinophils (%) (Auto) 6 % (0-3) Basophils (%) (Auto) 1 % (0-3) Neutrophils # (Auto) 3.2 x10^3/uL (1.8-7.7) Lymphocytes # (Auto) 1.5 x10^3/uL (1.0-4.8) Monocytes # (Auto) 0.6 x10^3/uL (0.0-1.1) Eosinophils # (Auto) 0.3 x10^3/uL (0.0-0.7) Basophils # (Auto) 0.0 x10^3/uL (0.0-0.2) Platelet Estimate Decreased (ADEQUATE) Hypochromasia Slight Anisocytosis Slight Microcytosis Slight Target Cells Occ Schistocytes Few Prothrombin Time 13.3 SEC (11.7-14.0) Prothromb Time International Ratio 1.0 (0.8-1.1) Sodium Level 138 mmol/L (136-145) Potassium Level 6.8 mmol/L (3.5-5.1) Chloride Level 100 mmol/L (98-107) Carbon Dioxide Level 25 mmol/L (21-32) Anion Gap 13 (6-14) Blood Urea Nitrogen 123 mg/dL (8-26) Creatinine 18.5 mg/dL (0.7-1.3) Estimated GFR (Cockcroft-Gault) 3.2 BUN/Creatinine Ratio 7 (6-20) Glucose Level 80 mg/dL (70-99) Calcium Level 9.0 mg/dL (8.5-10.1) Magnesium Level 2.9 mg/dL (1.8-2.4) Iron Level 118 ug/dL (65-175) Total Iron Binding Capacity 201 ug/dL (250-450) Iron Saturation 59 % (15-34) Total Bilirubin 0.4 mg/dL (0.2-1.0) Aspartate Amino Transf (AST/SGOT) 21 U/L (15-37) Alanine Aminotransferase (ALT/SGPT) 22 U/L (16-63) Alkaline Phosphatase 108 U/L (46-116) Creatine Kinase 124 U/L (39-308) Creatine Kinase MB (Mass) 2.3 ng/mL (0.0-3.6) Creatine Kinase MB Relative Index 1.9 % (0-4) Troponin I Quantitative < 0.017 ng/mL (0.000-0.055) ND-Kzy-I-Type Natriuretic Peptide 1265 pg/mL (0-124) Total Protein 8.0 g/dL (6.4-8.2) Albumin 3.6 g/dL (3.4-5.0) Albumin/Globulin Ratio 0.8 (1.0-1.7) Lipase 485 U/L (73-393) Glucose (Fingerstick) 64 mg/dL (70-99) 92 mg/dL (70-99) 90 mg/dL (70-99) Test 11/12/18 07:20 11/12/18 07:37 11/12/18 13:17 11/12/18 16:50 White Blood Count 4.2 x10^3/uL (4.0-11.0) Red Blood Count 4.96 x10^6/uL (4.30-5.70) Hemoglobin 11.9 g/dL (13.0-17.5) Hematocrit 37.2 % (39.0-53.0) Mean Corpuscular Volume 75 fL (79-100) Mean Corpuscular Hemoglobin 24 pg (25-35) Mean Corpuscular Hemoglobin Concent 32 g/dL (31-37) Red Cell Distribution Width 18.2 % (11.5-14.5) Platelet Count 49 x10^3/uL (140-400) Neutrophils (%) (Auto) 49 % (31-73) Lymphocytes (%) (Auto) 35 % (24-48) Monocytes (%) (Auto) 8 % (0-9) Eosinophils (%) (Auto) 7 % (0-3) Basophils (%) (Auto) 1 % (0-3) Neutrophils # (Auto) 2.1 x10^3/uL (1.8-7.7) Lymphocytes # (Auto) 1.5 x10^3/uL (1.0-4.8) Monocytes # (Auto) 0.3 x10^3/uL (0.0-1.1) Eosinophils # (Auto) 0.3 x10^3/uL (0.0-0.7) Basophils # (Auto) 0.0 x10^3/uL (0.0-0.2) Sodium Level 138 mmol/L (136-145) Potassium Level 5.1 mmol/L (3.5-5.1) Chloride Level 97 mmol/L (98-107) Carbon Dioxide Level 29 mmol/L (21-32) Anion Gap 12 (6-14) Blood Urea Nitrogen 90 mg/dL (8-26) Creatinine 15.7 mg/dL (0.7-1.3) Estimated GFR (Cockcroft-Gault) 3.9 Glucose Level 134 mg/dL (70-99) Calcium Level 8.7 mg/dL (8.5-10.1) Glucose (Fingerstick) 133 mg/dL (70-99) 121 mg/dL (70-99) 125 mg/dL (70-99) Test 11/12/18 19:34 11/13/18 04:35 11/13/18 07:14 Glucose (Fingerstick) 169 mg/dL (70-99) 94 mg/dL (70-99) White Blood Count 5.0 x10^3/uL (4.0-11.0) Red Blood Count 5.06 x10^6/uL (4.30-5.70) Hemoglobin 12.2 g/dL (13.0-17.5) Hematocrit 38.5 % (39.0-53.0) Mean Corpuscular Volume 76 fL (79-100) Mean Corpuscular Hemoglobin 24 pg (25-35) Mean Corpuscular Hemoglobin Concent 32 g/dL (31-37) Red Cell Distribution Width 18.2 % (11.5-14.5) Platelet Count 50 x10^3/uL (140-400) Neutrophils (%) (Auto) 45 % (31-73) Lymphocytes (%) (Auto) 35 % (24-48) Monocytes (%) (Auto) 13 % (0-9) Eosinophils (%) (Auto) 7 % (0-3) Basophils (%) (Auto) 1 % (0-3) Neutrophils # (Auto) 2.2 x10^3/uL (1.8-7.7) Lymphocytes # (Auto) 1.7 x10^3/uL (1.0-4.8) Monocytes # (Auto) 0.7 x10^3/uL (0.0-1.1) Eosinophils # (Auto) 0.3 x10^3/uL (0.0-0.7) Basophils # (Auto) 0.0 x10^3/uL (0.0-0.2) Sodium Level 139 mmol/L (136-145) Potassium Level 5.6 mmol/L (3.5-5.1) Chloride Level 97 mmol/L (98-107) Carbon Dioxide Level 32 mmol/L (21-32) Anion Gap 10 (6-14) Blood Urea Nitrogen 66 mg/dL (8-26) Creatinine 12.6 mg/dL (0.7-1.3) Estimated GFR (Cockcroft-Gault) 5.0 Glucose Level 70 mg/dL (70-99) Calcium Level 9.0 mg/dL (8.5-10.1) Laboratory Tests Test 11/12/18 13:17 11/12/18 16:50 11/12/18 19:34 11/13/18 04:35 Glucose (Fingerstick) 121 mg/dL (70-99) 125 mg/dL (70-99) 169 mg/dL (70-99) White Blood Count 5.0 x10^3/uL (4.0-11.0) Red Blood Count 5.06 x10^6/uL (4.30-5.70) Hemoglobin 12.2 g/dL (13.0-17.5) Hematocrit 38.5 % (39.0-53.0) Mean Corpuscular Volume 76 fL (79-100) Mean Corpuscular Hemoglobin 24 pg (25-35) Mean Corpuscular Hemoglobin Concent 32 g/dL (31-37) Red Cell Distribution Width 18.2 % (11.5-14.5) Platelet Count 50 x10^3/uL (140-400) Neutrophils (%) (Auto) 45 % (31-73) Lymphocytes (%) (Auto) 35 % (24-48) Monocytes (%) (Auto) 13 % (0-9) Eosinophils (%) (Auto) 7 % (0-3) Basophils (%) (Auto) 1 % (0-3) Neutrophils # (Auto) 2.2 x10^3/uL (1.8-7.7) Lymphocytes # (Auto) 1.7 x10^3/uL (1.0-4.8) Monocytes # (Auto) 0.7 x10^3/uL (0.0-1.1) Eosinophils # (Auto) 0.3 x10^3/uL (0.0-0.7) Basophils # (Auto) 0.0 x10^3/uL (0.0-0.2) Sodium Level 139 mmol/L (136-145) Potassium Level 5.6 mmol/L (3.5-5.1) Chloride Level 97 mmol/L (98-107) Carbon Dioxide Level 32 mmol/L (21-32) Anion Gap 10 (6-14) Blood Urea Nitrogen 66 mg/dL (8-26) Creatinine 12.6 mg/dL (0.7-1.3) Estimated GFR (Cockcroft-Gault) 5.0 Glucose Level 70 mg/dL (70-99) Calcium Level 9.0 mg/dL (8.5-10.1) Test 11/13/18 07:14 Glucose (Fingerstick) 94 mg/dL (70-99) Medications Current Medications Albuterol Sulfate (Ventolin Neb Soln) 10 mg 1X ONCE CONT NEB ; Start 11/11/18 at 18:15; Stop 11/11/18 at 18:16; Status DC Dextrose (Dextrose 50%-Water Syringe) 25 gm 1X ONCE IV ; Start 11/11/18 at 18:15; Stop 11/11/18 at 18:16; Status DC Insulin Human Regular (HumuLIN R VIAL) 10 unit 1X ONCE IV ; Start 11/11/18 at 18:15; Stop 11/11/18 at 18:16; Status DC Ondansetron HCl (Zofran) 4 mg PRN Q6HRS PRN IV NAUSEA/VOMITING; Start 11/11/18 at 18:00 Acetaminophen (Tylenol) 500 mg PRN Q6HRS PRN PO HEADACHE / TEMP; Start 11/11/18 at 18:00 Acetaminophen/ Codeine Phosphate (Tylenol #3) 1 tab PRN Q6HRS PRN PO MILD PAIN 1-3 Last administered on 11/12/18at 01:51; Start 11/11/18 at 18:00 Temazepam (Restoril) 7.5 mg PRN QHS PRN PO INSOMNIA Last administered on 11/11/18at 21:42; Start 11/11/18 at 18:00 Albuterol Sulfate (Ventolin Neb Soln) 2.5 mg PRN Q4HRS PRN NEB SHORTNESS OF BREATH Last administered on 11/13/18at 08:55; Start 11/11/18 at 18:00 Amlodipine Besylate (Norvasc) 5 mg DAILY PO Last administered on 11/13/18 08:00; Start 11/12/18 at 09:00 Cinacalcet (Sensipar) 30 mg DAILYWSUP PO Last administered on 11/12/18 17:40; Start 11/11/18 at 18:00 Dicyclomine HCl (Bentyl) 10 mg PRN QID PRN PO cramping Last administered on 11/12/18 20:16; Start 11/11/18 at 18:00 Acetaminophen/ Hydrocodone Bitart (Lortab 5/325) 1 tab PRN Q6HRS PRN PO MODERATE PAIN Last administered on 11/13/18 08:00; Start 11/11/18 at 18:00 Sevelamer Carbonate (Renvela) 2,400 mg TIDWMEALS PO Last administered on 11/13/18 07:59; Start 11/11/18 at 18:00 Tamsulosin HCl (Flomax) 0.4 mg DAILYWSUP PO Last administered on 11/12/18 17:40; Start 11/11/18 at 18:00 Cyclobenzaprine HCl (Flexeril) 5 mg PRN TID PRN PO MUSCLE SPASMS Last administered on 11/13/18 10:52; Start 11/11/18 at 18:15 Guaifenesin/ Codeine Phosphate (Robitussin Ac) 5 ml PRN Q6HRS PRN PO COUGH; Start 11/11/18 at 18:15 Polyethylene Glycol (miraLAX PACKET) 17 gm DAILY PO Last administered on 11/13/18 07:59; Start 11/12/18 at 09:00 Sennosides (Senna) 8.6 mg DAILY PO Last administered on 11/13/18 07:59; Start 11/11/18 at 09:00 Tramadol HCl (Ultram) 50 mg PRN Q8HRS PRN PO MILD PAIN, 2ND CHOICE Last administered on 11/12/18 17:46; Start 11/11/18 at 18:15 Magnesium Hydroxide (Milk Of Magnesia) 2,400 mg PRN DAILY PRN PO CONSTIPATION, 1ST CHOICE; Start 11/11/18 at 18:30 Docusate Sodium (Colace) 100 mg DAILY PO Last administered on 11/13/18 08:00; Start 11/12/18 at 09:00 Sodium Bicarbonate (Sodium Bicarb Adult 8.4% Syr) 50 meq 1X ONCE IV Last administered on 11/11/18at 21:44; Start 11/11/18 at 19:00; Stop 11/11/18 at 19:01; Status DC Sodium Chloride 1,000 ml @ 1,000 mls/hr Q1H PRN IV hypotension; Start 11/11/18 at 19:13; Stop 11/12/18 at 01:12; Status DC Diphenhydramine HCl (Benadryl) 25 mg 1X PRN PRN IV ITCHING; Start 11/11/18 at 19:15; Stop 11/12/18 at 19:14; Status DC Diphenhydramine HCl (Benadryl) 25 mg 1X PRN PRN IV ITCHING; Start 11/11/18 at 19:15; Stop 11/12/18 at 19:14; Status DC Sodium Chloride 1,000 ml @ 400 mls/hr Q2H30M PRN IV PATENCY; Start 11/11/18 at 19:13; Stop 11/12/18 at 07:12; Status DC Info (PHARMACY MONITORING -- do not chart) 1 each PRN DAILY PRN MC SEE COMMENTS; Start 11/11/18 at 19:15 Sodium Chloride 1,000 ml @ 1,000 mls/hr Q1H PRN IV hypotension; Start 11/12/18 at 07:24; Stop 11/12/18 at 13:23; Status DC Sodium Chloride 1,000 ml @ 400 mls/hr Q2H30M PRN IV PATENCY; Start 11/12/18 at 07:24; Stop 11/12/18 at 19:23; Status DC Info (PHARMACY MONITORING -- do not chart) 1 each PRN DAILY PRN MC SEE COMMENTS; Start 11/12/18 at 07:30; Status UNV Info (PHARMACY MONITORING -- do not chart) 1 each PRN DAILY PRN MC SEE COMMENTS; Start 11/12/18 at 07:30; Status UNV Gabapentin (Neurontin) 100 mg 3X/WEEK PO Last administered on 11/13/18at 00:55; Start 11/12/18 at 23:00 Active Scripts Active Hydrocodone-Guaif 2.5-200 mg/5 (Guaifenesin/Hydrocodone) 118 Ml Solution 2.5 Ml PO PRN BID PRN 6 Days Tramadol Hcl 50 Mg Tablet 50 Mg PO PRN Q8HRS PRN Flomax (Tamsulosin Hcl) 0.4 Mg Cap.er.24h 1 Cap PO DAILYWSUP Viagra (Sildenafil Citrate) 100 Mg Tablet 1 Tab PO PRN DAILY PRN Sensipar (Cinacalcet Hcl) 30 Mg Tablet 1 Tab PO DAILYWSUP Dicyclomine Hcl 10 Mg Capsule 10 Mg PO QID PRN Reported Gabapentin 100 Mg Capsule 100 Mg PO 3X/WEEK Renvela (Sevelamer Carbonate) 800 Mg Tablet 3 Tab PO TID Senna (Sennosides) 8.6 Mg Tablet 8.6 Mg PO DAILY Miralax (Polyethylene Glycol 3350) 17 Gm Powd.pack 1 Packet PO DAILY Amlodipine Besylate 5 Mg Tablet 5 Mg PO DAILY Hydrocodone-Apap 5-325 (Hydrocodone Bit/Acetaminophen) 1 Tab Tablet 1 Tab PO PRN Q6HRS PRN Cyclobenzaprine Hcl 5 Mg Tablet 1 Tab PO TID PRN Vitals/I & O Vital Sign - Last 24 Hours 11/12/18 11/12/18 11/12/18 11/12/18 13:19 13:37 14:38 15:16 Temp 98.1 97.9 98.1 97.9 Pulse 79 77 Resp 20 18 B/P (MAP) 102/58 (73) 106/65 (79) Pulse Ox 98 98 96 O2 Delivery Room Air Room Air Room Air 11/12/18 11/12/18 11/12/18 11/12/18 17:46 19:23 19:54 20:00 Temp 97.3 97.3 Pulse 80 Resp 19 18 B/P (MAP) 106/81 (89) Pulse Ox 96 96 O2 Delivery Room Air Room Air Room Air Room Air 11/12/18 11/13/18 11/13/18 11/13/18 23:30 03:01 07:00 07:50 Temp 97.6 97.6 98.4 97.6 97.6 98.4 Pulse 75 77 76 Resp 18 20 14 B/P (MAP) 100/60 (73) 136/76 (96) 110/61 (77) Pulse Ox 98 97 100 O2 Delivery Room Air Room Air Room Air Room Air 7/11/13/18 11/13/18 11/13/18 08:00 08:00 08:56 09:30 Pulse 76 B/P (MAP) 110/61 Pulse Ox 97 97 97 O2 Delivery Room Air Room Air Room Air Intake and Output 11/12/18 11/12/18 11/13/18 15:00 23:00 07:00 Intake Total 100 ml 600 ml 460 ml Balance 100 ml 600 ml 460 ml HUMBERTO MORENO MD Nov 13, 2018 10:58
[2018-11-13 11:00] VITALS: BP 95/41
[2018-11-13 15:13] VITALS: BP 112/45
[2018-11-13 16:41] LABS: BASE EXCESS COOX 4 mmol/L (-3-3); HCO3 COOX 29 mmol/L (21-28); METHEMOGLOBIN 0.3 % (0.0-1.9); OXYHEMOGLOBIN 93.9 %; PCO2 COOX 45 mmHg (35-46); PO2 COOX 78 mmHg (75-108); SAT O2 COOX 95 % (92-99)
[2018-11-13] MEDS: CINACALCET HCL 30 MG TABLET PO SCH (17:05)
[2018-11-13] MEDS: TAMSULOSIN 0.4 MG CAP.ER.24H. PO SCH (17:06)
[2018-11-13 19:00] VITALS: BP 101/56
[2018-11-13 23:00] VITALS: BP 128/66
[2018-11-14] MEDS: HYDROcodone/APAP 5/325MG 1 TAB TABLET PO PRN ×3 (03:17→20:10)
[2018-11-14 03:27] VITALS: BP 148/52
[2018-11-14 07:00] VITALS: BP 114/57
[2018-11-14] MEDS: ALBUTEROL SULFATE 2.5 MG/3 ML NEBU. NEB PRN (08:16)
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
[2018-11-14] MEDS: SEVELAMER CARBONATE 800 MG TABLET. PO SCH ×3 (09:37→17:41)
[2018-11-14] MEDS: DOCUSATE SODIUM 100 MG CAPSULE. PO SCH (09:38)
[2018-11-14] MEDS: POLYETHYLENE GLYCOL 3350 17 GM PACKET. PO SCH (09:38)
[2018-11-14] MEDS: GABAPENTIN 100 MG CAPSULE. PO SCH (09:39)
[2018-11-14] MEDS: amLODIPine BESYLATE 5 MG TABLET PO SCH (09:39)
[2018-11-14] MEDS: SENNOSIDES 8.6 MG TABLET PO SCH (09:39)
--- NOTE | 2018-11-14 09:48 | NUR ---
SW reviewed pt's medical chart and evaluated for potential dc needs. Pt is from home with family and was admitted for end stage renal disease and encephalopathy. Pt is on room air and PT/OT recommend home with assistance. Pt may need walker. DEJA will continue to follow and be available for dc needs. Addendum: 11/14/18 at 0955 by JEROD SHORT Additional information: Pt is currently on dialysis and goes on T, , S. Per ED report, pt has not gone to dialysis for one week.
[2018-11-14 10:54] VITALS: BP 116/66
--- NOTE | 2018-11-14 11:09 | PDOC ---
Renal-Progress Notes Subjective Notes Notes NO NEW COMPLAINTS History of Present Illness Hx of present illness STABLE Vitals Vitals Vital Signs Date Time Temp Pulse Resp B/P (MAP) Pulse Ox O2 Delivery O2 Flow Rate FiO2 11/14/18 10:54 98.0 88 18 116/66 (83) 99 Room Air 98.0 Weight Weight [ ] I.O. Intake and Output Intake and Output 11/14/18 07:00 Intake Total 1320 ml Balance 1320 ml Intake Oral 1320 ml # Voids 4 # Bowel Movements 1 Labs Labs Laboratory Tests Test 11/13/18 11:43 11/13/18 16:35 11/13/18 16:45 11/13/18 20:23 Glucose (Fingerstick) 139 mg/dL (70-99) 105 mg/dL (70-99) 110 mg/dL (70-99) O2 Saturation 95 % (92-99) Arterial Blood pH 7.42 (7.35-7.45) Arterial Blood pCO2 at Patient Temp 45 mmHg (35-46) Arterial Blood pO2 at Patient Temp 78 mmHg (75-108) Arterial Blood HCO3 29 mmol/L (21-28) Arterial Blood Base Excess 4 mmol/L (-3-3) Oxyhemoglobin 93.9 % Methemoglobin 0.3 % (0.0-1.9) Carbon Monoxide, Quantitative 0.3 % (0.0-1.9) FiO2 21 Test 11/14/18 07:38 Glucose (Fingerstick) 76 mg/dL (70-99) Review of Systems Constitutional: yes: weakness, alert, oriented Ears/Nose/Throat: Yes: no symptom reported Eyes: Yes: no symptom reported Pulmonary: Yes no symptom reported Cardiovascular: Yes no symptom reported Gastrointestional: Yes: no symptom reported Genitourinary: Yes: no symptom reported Musculoskeletal: Yes: no symptom reported Skin: Yes no symptom reported Psychiatric/Neurological: Yes: no symptom reported Endocrine: Yes: no symptom reported Hematologic/Lymphatic: Yes: no symptom reported Physical Exam General Appearance: no apparent distress Skin: warm Respiratory: bilateral CTA Heart: S1S2, RRR Abdomen: soft, bowel sounds present Genitourinary: bladder flat Extremities: pulses present Neurology: alert, oriented Assessment Assessment IMP LIFE THREATENING HYPERKALEMIA-RESOLVED NON COMPLIANCE ESRD-OP ON TTS BUT SKIPPED FOR MORE THAN A WK PER SPOUSE UREMIC ENCEPHALOPATHY-BETTER ANEMIA HTN PLAN HD TOMORROW WILL ENC COMPLIANCE ONCE MENTATION IS MORE CLEAR MARCI WHEN NEEDED NAA MOISE MD Nov 14, 2018 11:09
[2018-11-14 12:27] LABS: ALBUMIN 3.4 g/dL (3.4-5.0); CALCIUM 8.7 mg/dL (8.5-10.1); CREATININE 14.9 mg/dL (0.7-1.3); GFR 4.2; PHOSPHORUS 7.4 mg/dL (2.6-4.7)
[2018-11-14 12:32] LABS: POTASSIUM 6.3 mmol/L (3.5-5.1)
[2018-11-14] MEDS ORDERED: SODIUM POLYSTYRENE SULFON/SORB 15 GM/60 ML ORAL.SUSP PO ONE (14:00)
[2018-11-14 15:00] VITALS: BP 122/68
[2018-11-14] MEDS: TAMSULOSIN 0.4 MG CAP.ER.24H. PO SCH (17:40)
[2018-11-14] MEDS: CINACALCET HCL 30 MG TABLET PO SCH (17:42)
[2018-11-14 19:00] VITALS: BP 109/55
[2018-11-14 23:00] VITALS: BP 123/57
[2018-11-15] MEDS: HYDROcodone/APAP 5/325MG 1 TAB TABLET PO PRN ×2 (02:23→14:46)
[2018-11-15 02:28] VITALS: BP 125/58
[2018-11-15] MEDS: ALBUTEROL SULFATE 2.5 MG/3 ML NEBU. NEB PRN (03:34)
[2018-11-15 07:00] VITALS: BP 149/40
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
[2018-11-15] MEDS: SEVELAMER CARBONATE 800 MG TABLET. PO SCH ×3 (08:36→17:00)
[2018-11-15] MEDS: SENNOSIDES 8.6 MG TABLET PO SCH (08:36)
[2018-11-15] MEDS: POLYETHYLENE GLYCOL 3350 17 GM PACKET. PO SCH (08:36)
[2018-11-15] MEDS: DOCUSATE SODIUM 100 MG CAPSULE. PO SCH (08:36)
[2018-11-15] MEDS ORDERED: LIDOCAINE 1% PF 2 ML VIAL. ONE ×2 (10:00→10:11)
[2018-11-15] MEDS ORDERED: IV NORMAL SALINE 1000ML BAG 1,000 ML IV PRN ×2 (10:01)
[2018-11-15] MEDS ORDERED: DIALYSIS PATIENT. MC PRN ×2 (10:15)
[2018-11-15] MEDS ORDERED: LIDOCAINE 1% Multi-Dose 20 ML VIAL. ID ONE (10:15)
[2018-11-15] MEDS ORDERED: diphenhydrAMINE 50 MG/ML VIAL IV PRN ×2 (10:15)
[2018-11-15 10:37] LABS: ALBUMIN 3.4 g/dL (3.4-5.0); CALCIUM 8.4 mg/dL (8.5-10.1); CREATININE 11.5 mg/dL (0.7-1.3); GFR 5.6; PHOSPHORUS 6.5 mg/dL (2.6-4.7); POTASSIUM 5.5 mmol/L (3.5-5.1)
--- NOTE | 2018-11-15 12:03 | PDOC ---
Renal-Progress Notes Subjective Notes Notes FEELS WELL History of Present Illness Hx of present illness STABLE Vitals Vitals Vital Signs Date Time Temp Pulse Resp B/P (MAP) Pulse Ox O2 Delivery O2 Flow Rate FiO2 11/15/18 08:00 Room Air 11/15/18 07:00 98.4 83 18 149/40 (76) 100 98.4 Weight Weight [ ] I.O. Intake and Output Intake and Output 11/15/18 06:59 Intake Total 2480 ml Balance 2480 ml Intake Oral 2480 ml Labs Labs Laboratory Tests Test 11/14/18 20:43 11/15/18 07:45 11/15/18 08:55 Glucose (Fingerstick) 98 mg/dL (70-99) 105 mg/dL (70-99) Sodium Level 137 mmol/L (136-145) Potassium Level 5.5 mmol/L (3.5-5.1) Chloride Level 97 mmol/L (98-107) Carbon Dioxide Level 31 mmol/L (21-32) Anion Gap 9 (6-14) Blood Urea Nitrogen 60 mg/dL (8-26) Creatinine 11.5 mg/dL (0.7-1.3) Estimated GFR (Cockcroft-Gault) 5.6 Glucose Level 116 mg/dL (70-99) Calcium Level 8.4 mg/dL (8.5-10.1) Phosphorus Level 6.5 mg/dL (2.6-4.7) Albumin 3.4 g/dL (3.4-5.0) Review of Systems Constitutional: yes: weakness, alert, oriented Ears/Nose/Throat: Yes: no symptom reported Eyes: Yes: no symptom reported Pulmonary: Yes no symptom reported Cardiovascular: Yes no symptom reported Gastrointestional: Yes: no symptom reported Genitourinary: Yes: no symptom reported Musculoskeletal: Yes: no symptom reported Skin: Yes no symptom reported Psychiatric/Neurological: Yes: no symptom reported Endocrine: Yes: no symptom reported Hematologic/Lymphatic: Yes: no symptom reported Physical Exam General Appearance: no apparent distress Skin: warm Respiratory: bilateral CTA Heart: S1S2, RRR Abdomen: soft, bowel sounds present Genitourinary: bladder flat Extremities: pulses present Neurology: alert, oriented Assessment Assessment IMP LIFE THREATENING HYPERKALEMIA-RESOLVED NON COMPLIANCE ESRD-OP ON TTS BUT SKIPPED FOR MORE THAN A WK PER SPOUSE UREMIC ENCEPHALOPATHY-BETTER ANEMIA HTN PLAN HD TODAY UF TO DW ENC LOW K DIET WILL ENC COMPLIANCE ONCE MENTATION IS MORE CLEAR MARCI WHEN NEEDED NAA MOISE MD Nov 15, 2018 12:03
[2018-11-15] MEDS ORDERED: SODI15OR PO (14:33)
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
[2018-11-15 15:00] VITALS: BP 121/77
[2018-11-15] MEDS: amLODIPine BESYLATE 5 MG TABLET PO SCH (18:42)
[2018-11-15] MEDS: CINACALCET HCL 30 MG TABLET PO SCH (18:43)
[2018-11-15] MEDS: TAMSULOSIN 0.4 MG CAP.ER.24H. PO SCH (18:43)
[2018-11-15 19:00] VITALS: BP 109/70
== END 2018-11-15 20:10 | disposition home or self-care (01) | DRG 640 ==
LOC: ER 16:14 → 6 SOUTH 17:32 → 5 NORTH 11-13 01:13
PROVIDERS: ADMIT Internal Medicine; ATTEND Internal Medicine
PROC: 5A1D70Z Performance of Urinary Filtration, Intermittent, Less than 6 Hours Per Day (ICD-10-PCS; 2018-11-12)
PROC: 5A1D70Z Performance of Urinary Filtration, Intermittent, Less than 6 Hours Per Day (ICD-10-PCS; principal; 2018-11-14)
PROC: 5A1D70Z Performance of Urinary Filtration, Intermittent, Less than 6 Hours Per Day (ICD-10-PCS; 2018-11-15)
DX: E87.5 Hyperkalemia (principal); N18.6 End stage renal disease; G93.41 Metabolic encephalopathy; I12.0 Hypertensive chronic kidney disease with stage 5 chronic kidney disease or end stage renal disease; E83.41 Hypermagnesemia; E11.22 Type 2 diabetes mellitus with diabetic chronic kidney disease; I44.4 Left anterior fascicular block; D50.9 Iron deficiency anemia, unspecified; D63.1 Anemia in chronic kidney disease; D69.6 Thrombocytopenia, unspecified; M10.9 Gout, unspecified; E11.40 Type 2 diabetes mellitus with diabetic neuropathy, unspecified; E66.01 Morbid (severe) obesity due to excess calories; E83.39 Other disorders of phosphorus metabolism; F41.9 Anxiety disorder, unspecified; G89.29 Other chronic pain; K59.00 Constipation, unspecified; N40.0 Benign prostatic hyperplasia without lower urinary tract symptoms; Z82.49 Family history of ischemic heart disease and other diseases of the circulatory system; Z91.19 Patient's noncompliance with other medical treatment and regimen; Z87.891 Personal history of nicotine dependence; Z91.15 Patient's noncompliance with renal dialysis; Z99.2 Dependence on renal dialysis; Z68.36 Body mass index [BMI] 36.0-36.9, adult
CPT/HCPCS: 36415; 36600; 71045; 80048; 80053; 80069; 82550; 82553; 82805; 82962; 83540; 83550; 83690; 83735; 83880; 84484; 85025; 85610; 93005; 94640; 94760; J7613; 97116; 99291-25

== ENCOUNTER 2018-11-27 14:39 | Emergency (ER) | payer OTHER ==
[~2018-11-27] VITALS: Ht 177.8 cm; Wt 119.7 kg
[~2018-11-27 14:39] MED LIST changes: +GABA100C6 PO; +SODI15OR PO
[2018-11-27] MEDS ORDERED: LIDO:MAALOX 1:1 20 ML SINGLE DOSE. SWSW ONE (16:00)
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
[2018-11-27 16:42] LABS: BASO # 0.1 x10^3/uL (0.0-0.2); BASO % 1 % (0-3); EOS # 0.5 x10^3/uL (0.0-0.7); EOS % 7 % (0-3); HEMATOCRIT 35.3 % (39.0-53.0); LYMPH # 1.4 x10^3/uL (1.0-4.8); LYMPH % 21 % (24-48); MEAN CORPUSCULAR HEMOGLOBIN 24 pg (25-35); MEAN CORPUSCULAR HGB CONC 31 g/dL (31-37); MEAN CORPUSCULAR VOLUME 77 fL (79-100); MONO # 0.7 x10^3/uL (0.0-1.1); MONO % 10 % (0-9); NEUT # 4.4 x10^3/uL (1.8-7.7); NEUT % 63 % (31-73); PLATELET COUNT 34 x10^3/uL (140-400); RED BLOOD COUNT 4.59 x10^6/uL (4.30-5.70); RED CELL DISTRIBUTION WIDTH 18.1 % (11.5-14.5)
[2018-11-27 16:46] LABS: CALCIUM 8.7 mg/dL (8.5-10.1); CREATININE 14.6 mg/dL (0.7-1.3); GFR 4.3; POTASSIUM 4.7 mmol/L (3.5-5.1)
[2018-11-27 16:50] LABS: ALBUMIN 2.6 g/dL (3.4-5.0); ALBUMIN/GLOBULIN RATIO 0.5 (1.0-1.7); TOTAL BILIRUBIN 0.4 mg/dL (0.2-1.0); TOTAL PROTEIN 7.5 g/dL (6.4-8.2)
[2018-11-27 16:52] LABS: AMYLASE 149 U/L (25-115); LIPASE 586 U/L (73-393)
[2018-11-27 17:19] LABS: PLT ESTIMATE DECREASED (ADEQUATE)
[2018-11-27 17:21] LABS: ANISOCYTOSIS SLIGHT; BIZZARE CELLS OCC; HYPOCHROMIA SLIGHT; OVALOCYTES FEW; POIKILOCYTOSIS SLIGHT; TEAR DROP CELLS OCC
[2018-11-27 17:51] VITALS: BP 125/54
[2018-11-27] MEDS ORDERED: CEPH500C PO (17:51)
[2018-11-27] MEDS ORDERED: MORPHINE SULFATE 4 MG/ML VIAL. IM ONE (18:00)
== END 2018-11-27 18:25 | disposition home or self-care (01) ==
LOC: ER 14:39
DX: K86.1 Other chronic pancreatitis (principal); L02.31 Cutaneous abscess of buttock; R33.9 Retention of urine, unspecified; I10 Essential (primary) hypertension; G89.29 Other chronic pain; E11.40 Type 2 diabetes mellitus with diabetic neuropathy, unspecified; Z90.49 Acquired absence of other specified parts of digestive tract
CPT/HCPCS: 36415; 80053; 82150; 83690; 85025; 96372; 99285; J2270